=== PATIENT | male | born 1970 | race Caucasian/White ===

== ENCOUNTER 2016-08-16 17:43 | Emergency (ER) | payer OTHER ==
[~2016-08-16] VITALS: Ht 180.3 cm; Wt 81.8 kg
[~2016-08-16 17:43] MED LIST: PERC5TAB12 PO; TAMS0.4C67 PO; ZOFR4TAB3 SL
[2016-08-16 17:46] VITALS: BP 126/85; PULSE 95; RESP 18; TEMP 97.9; O2SAT 98
[2016-08-16 18:27] VITALS: BP 117/81; PULSE 89; RESP 18; TEMP 98.3; O2SAT 96
--- NOTE | 2016-08-16 18:33 | PD ---
HPI Chief Complaint: Fall Time Seen by Provider: 18:32 Travel History International Travel<30 days: No Contact w/Intl Traveler<30days: No Traveled to known affect area: No History of Present Illness HPI 45-year-old male coming in status post slip and fall on his home steps due to the rain. Patient states neck pain, headache, and questionable loss of consciousness. Patient also has pain in his central thoracic spine, right knee and right ankle. Patient denies shortness of breath or chest pain. Denies abdominal pain. Patient states upper extremities are normal. Patient denies hip or pelvic pain. Patient denies pain in the left leg. Patient has no open wounds or abrasions. Patient denies dental injury. PFSH Past Medical History Diabetes: No Diminished Hearing: No Kidney Stones: Yes Immunizations Current: Yes Social History Alcohol Use: No Tobacco Use: Yes (07/27 PPD) Substance Use: No Allergies-Medications (Allergen,Severity, Reaction): Coded Allergies: Vistaril (Verified Allergy, Intermediate, AGITATION, 08/16/16) Reported Meds & Prescriptions Reported Meds & Active Scripts Active Zofran ODT (Ondansetron HCl) 4 Mg Tab 4 Mg SL Q6H PRN FOR NAUSEA/VOMITING Percocet 5-325 mg (Oxycodone/Acetaminophen) Oxycodone 5/325 Acetaminophen Tab 1 Tab PO Q6H PRN Flomax (Tamsulosin HCl) 0.4 Mg Cap 0.4 Mg PO DAILY Review of Systems Except as stated in HPI: all other systems reviewed are Neg General / Constitutional: No: Fever Eyes: No: Visual changes HENT: No: Headaches Cardiovascular: No: Chest Pain or Discomfort Respiratory: No: Shortness of Breath Gastrointestinal: No: Abdominal Pain Genitourinary: No: Dysuria Musculoskeletal: No: Pain Skin: No Rash Neurologic: No: Weakness Psychiatric: No: Depression Endocrine: No: Polydipsia Hematologic/Lymphatic: No: Easy Bruising Physical Exam Narrative GENERAL: Patient appears in moderate distress. Patient is in a [place] cervical collar. SKIN: Warm and dry. Normal color. Normal turgor. No signs of trauma appreciated. HEAD: Atraumatic. Normocephalic. No specific point tenderness is noted. EYES: Pupils equal and round. No scleral icterus. No injection or drainage. ENT: No nasal bleeding or discharge. Mucous membranes pink and moist. No dental injury. Pharynx is normal. Airway is patent. NECK: Trachea midline. No JVD. Patient complains of neck pain and cervical collar is maintained for CT scan. CARDIOVASCULAR: Regular rate and rhythm. No murmurs gallops or rubs. RESPIRATORY: No accessory muscle use. Clear to auscultation. Breath sounds equal bilaterally. No thoracic wall tenderness. Patient has tenderness along the thoracic spine at the T10 level. No obvious deformities are noted. GASTROINTESTINAL: Abdomen soft, non-tender, nondistended. Hepatic and splenic margins not palpable. MUSCULOSKELETAL: Extremities without clubbing, cyanosis, or edema. No obvious deformities. Patient has swelling of the right ankle mainly over the dorsal foot and lateral malleolus and distal foreleg. Patient complains of right knee pain however the knee appears normal, without effusion or obvious bony deformity. NEUROLOGICAL: Awake and alert. No obvious cranial nerve deficits. Motor grossly within normal limits. Five out of 5 muscle strength in the arms and legs. Range of motion in the right lower leg is limited secondary to pain. Normal speech. PSYCHIATRIC: Appropriate mood and affect; insight and judgment normal. Data Data Last Documented VS Vital Signs Date Time Temp Pulse Resp B/P Pulse Ox O2 Delivery O2 Flow Rate FiO2 08/16/16 19:53 74 15 111/68 96 Room Air 08/16/16 18:[address] Brain W/O Iv Contrast(Rout) (08/16/16 18:38) Ct Cerv Spine W/O Contrast (08/16/16 18:38) Ct Thor Spine W/O Contrast (08/16/16 18:38) Complete Blood Count With Diff (08/16/16 18:38) Comprehensive Metabolic Panel (08/16/16 18:38) Iv Access Insert/Monitor (08/16/16 18:38) Ecg Monitoring (08/16/16 18:38) Oximetry (08/16/16 18:38) NPO (08/16/16 18:38) Hydromorphone Pf Inj (Dilaudid Pf Inj) (08/16/16 18:45) Ondansetron Inj (Zofran Inj) (08/16/16 18:45) Sodium Chloride 0.9% Flush (Ns Flush) (08/16/16 18:45) Ankle, Complete (Stl3prg) (08/16/16 18:38) Knee, Complete (4vws) (08/16/16 18:38) Ice/Cold Pack (08/16/16 18:38) Ketorolac Inj (Toradol Inj) (08/16/16 19:30) Labs Laboratory Tests Test 08/16/16 18:55 White Blood Count 7.7 TH/MM3 Red Blood Count 4.34 MIL/MM3 Hemoglobin 13.0 GM/DL Hematocrit 39.5 % Mean Corpuscular Volume 91.1 FL Mean Corpuscular Hemoglobin 29.9 PG Mean Corpuscular Hemoglobin 32.8 % Concent Red Cell Distribution Width 13.8 % Platelet Count 230 TH/MM3 Mean Platelet Volume 8.7 FL Neutrophils (%) (Auto) 65.8 % Lymphocytes (%) (Auto) 22.9 % Monocytes (%) (Auto) 6.9 % Eosinophils (%) (Auto) 3.7 % Basophils (%) (Auto) 0.7 % Neutrophils # (Auto) 5.1 TH/MM3 Lymphocytes # (Auto) 1.8 TH/MM3 Monocytes # (Auto) 0.5 TH/MM3 Eosinophils # (Auto) 0.3 TH/MM3 Basophils # (Auto) 0.1 TH/MM3 CBC Comment DIFF FINAL Differential Comment Sodium Level 142 MEQ/L Potassium Level 4.6 MEQ/L Chloride Level 110 MEQ/L Carbon Dioxide Level 25.6 MEQ/L Anion Gap 6 MEQ/L Blood Urea Nitrogen 11 MG/DL Creatinine 0.94 MG/DL Estimat Glomerular Filtration 87 ML/MIN Rate Random Glucose 85 MG/DL Calcium Level 8.5 MG/DL Total Bilirubin 0.3 MG/DL Aspartate Amino Transf 52 U/L (AST/SGOT) Alanine Aminotransferase 43 U/L (ALT/SGPT) Alkaline Phosphatase 96 U/L Total Protein 6.7 GM/DL Albumin 3.0 GM/DL [facility] Medical Decision Making Medical Screen Exam Complete: Yes Emergency Medical Condition: Yes Differential Diagnosis Fall. Multiple contusions. Neck pain. Possible loss of consciousness. Intracranial bleed. Right ankle fracture. Right knee fracture. Thoracic contusion. Possible vertebral fracture. Right knee sprain. Narrative Course Patient is felt to be medically stable at time of exam. Labs ordered including CBC, CMP. IV access is obtained patient is given 1 mg hydromorphone IV, [address] the head and neck is ordered. CT of the thoracic spine is ordered. X-rays of the right ankle and and right knee were ordered. CT of the head and neck are within normal limits per radiologist. CT thoracic spine shows chronic changes without acute findings of fracture. X-rays of the right knee and ankle show no acute fracture, soft tissue swelling along the medial ankle. Patient is given 30 mg Toradol IV. Patient is placed in a ankle stirrup splint and crutches for the right ankle sprain. Patient is discussed with Dr. Arizmendi who sees the patient as well. Labs are within normal limits. Troponin is 0.02. Patient is felt stable to be discharged home. Patient is given prescription for lisinopril 20 mg daily. #30. Patient is given ibuprofen at 12.5 mg daily. #30. Patient is to follow with her primary care physician as discussed. Patient may return to emergency Department with worsening symptoms as needed. Diagnosis Primary Impression: Fall (on) (from) other stairs and steps, initial encounter Additional Impressions: Cervical strain Qualified Code: S16.1XXA - Cervical strain, initial encounter Contusion Qualified Code: S00.03XA - Contusion of scalp, initial encounter Strain of right knee Qualified Code: S86.911A - Strain of right knee, initial encounter Moderate right ankle sprain Qualified Code: S93.401A - Moderate right ankle sprain, initial encounter Referrals: Primary Care Physician Patient Instructions: General Instructions, Narcotic given in the ED Additional Instructions: Labs are within normal limits. Troponin is 0.02. Patient is felt stable to be discharged home. Patient is given prescription for lisinopril 20 mg daily. #30. Patient is given ibuprofen at 12.5 mg daily. #30. Patient is to follow with her primary care physician as discussed. Patient may return to emergency Department with worsening symptoms as needed. Med/Other Pt SpecificInfo: Prescription(s) given Disposition: DISCHARGE HOME Condition: Stable Henri Thomas Aug 16, 2016 18:32
[2016-08-16] MEDS ORDERED: SODIUM CHLORIDE 0.9% FLUSH 5 ML FLUSH IVF PRN (18:45)
[2016-08-16] MEDS ORDERED: ONDANSETRON HCL 4 MG/2 ML VIAL IVP ONE (18:45)
[2016-08-16] MEDS ORDERED: HYDROmorphone HCL PF 2 MG/ML VIAL IVS ONE (18:45)
[2016-08-16 19:01] VITALS: O2SAT 98
[2016-08-16 19:13] LABS: AUTOMATED NEUTROPHIL # 5.1 TH/MM3 (1.8-7.7); BASOPHIL # 0.1 TH/MM3 (0-0.2); BASOPHIL % 0.7 % (0.0-2.0); EOSINOPHIL # 0.3 TH/MM3 (0-0.4); EOSINOPHIL % 3.7 % (0.0-4.0); HEMATOCRIT 39.5 % (39.0-51.0); HEMO FLAGS DIFF FINAL; LYMPH % 22.9 % (9.0-44.0); LYMPHOCYTE # 1.8 TH/MM3 (1.0-4.8); MEAN CELL VOLUME 91.1 FL (80.0-100.0); MEAN CORPUSCULAR HEMOGLOBIN 29.9 PG (27.0-34.0); MEAN CORPUSCULAR HGB CONC 32.8 % (32.0-36.0); MONO % 6.9 % (0.0-8.0); NEUT % 65.8 % (16.0-70.0); PLATELET COUNT 230 TH/MM3 (150-450); RED BLOOD COUNT 4.34 MIL/MM3 (4.50-5.90); RED CELL DISTRIBUTION WIDTH 13.8 % (11.6-17.2); WHITE BLOOD COUNT 7.7 TH/MM3 (4.0-11.0)
--- NOTE | 2016-08-16 19:13 | RADRPT ---
EXAM DATE/TIME: 08/16/2016 18:58 [facility] COMPARISON: No previous studies available for comparison. INDICATIONS : Trauma; fall. RADIATION DOSE: 68.55 CTDIvol (mGy) MEDICAL HISTORY : None SURGICAL HISTORY : None. ENCOUNTER: Initial ACUITY: 1 day PAIN SCALE: 1/10 LOCATION: cranial TECHNIQUE: Multiple contiguous axial images were obtained of the head. Using automated exposure control and adj ustment of the mA and/or kV according to patient size, radiation dose was kept as low as reasonably a chievable to obtain optimal diagnostic quality images. FINDINGS: CEREBRUM: The ventricles are normal for age. No evidence of midline shift, mass lesion, hemorrhage or acute in farction. No extra-axial fluid collections are seen. POSTERIOR FOSSA: The cerebellum and brainstem are intact. The 4th ventricle is midline. The cerebellopontine angle i s unremarkable. EXTRACRANIAL: The visualized portion of the orbits is intact. There appears to be possible fracturing at the right nasal bone without significant displacement. SKULL: The calvaria is intact. No evidence of skull fracture. CONCLUSION: 1. No intracranial abnormality. 2. Possible right nondisplaced nasal bone fractures. Carlos Aceves MD on August 16, 2016 at 19:11 Board Certified Radiologist. This report was verified electronically.
[2016-08-16] MEDS ORDERED: KETOROLAC TROMETHAMINE 30 MG/ML (IVP) VIAL IV PUSH ONE (19:30)
--- NOTE | 2016-08-16 19:30 | RADRPT ---
EXAM DATE/TIME: 08/16/2016 18:58 [facility] COMPARISON: No previous studies available for comparison. INDICATIONS : Trauma; fall. RADIATION DOSE: 18.49 CTDIvol (mGy) MEDICAL HISTORY : None SURGICAL HISTORY : None. ENCOUNTER: Initial ACUITY: 1 day PAIN SCALE: 2/10 LOCATION: neck TECHNIQUE: Volumetric scanning of the cervical spine was performed. Multiplanar reconstructions in the sagittal, coronal and oblique axial planes were performed. Using automated exposure control and adjustment o f the mA and/or kV according to patient size, radiation dose was kept as low as reasonably achievable to obtain optimal diagnostic quality images. FINDINGS: VERTEBRAE: Normal vertebral body height. ALIGNMENT: No evidence of subluxation. C2-C3: The bony spinal canal is normal in size. No evidence of disc bulge or herniation. The neural forami na are bilaterally patent. C3-C4: The bony spinal canal is normal in size. No evidence of disc bulge or herniation. The neural forami na are bilaterally patent. C4-C5: The bony spinal canal is normal in size. No evidence of disc bulge or herniation. The neural forami na are bilaterally patent. C5-C6: The bony spinal canal is normal in size. No evidence of disc bulge or herniation. The neural forami na are bilaterally patent. C6-C7: The bony spinal canal is normal in size. No evidence of disc bulge or herniation. The neural forami na are bilaterally patent. C7-T1: The bony spinal canal is normal in size. No evidence of disc bulge or herniation. The neural forami na are bilaterally patent. CONCLUSION: No acute disease. Carlos Aceves MD on August 16, 2016 at 19:22 Board Certified Radiologist. This report was verified electronically.
--- NOTE | 2016-08-16 19:32 | RADRPT ---
EXAM DATE/TIME: 08/16/2016 19:27 [facility] COMPARISON: No previous studies available for comparison. INDICATIONS : Right ankle pain as a result of an alleged fall down two flights of stairs. MEDICAL HISTORY : None. SURGICAL HISTORY : None. ENCOUNTER: Initial ACUITY: 1 day PAIN SCORE: 10/10 LOCATION: Right ankle FINDINGS: Three view exam was performed of the right ankle. The bony structures are in normal alignment. No e vidence of fracture or dislocation. There is mild soft tissue swelling being more prominent laterally . There is a calcaneal spur at the plantar aponeurosis attachment site. The ankle mortise is intact. No radiopaque foreign bodies are seen. Bony mineralization is normal. CONCLUSION: 1. Mild soft tissue swelling especially laterally. 2. No fracture seen. 3. Calcaneal spur. Carlos Aceves MD on August 16, 2016 at 19:29 Board Certified Radiologist. This report was verified electronically.
--- NOTE | 2016-08-16 19:33 | RADRPT ---
EXAM DATE/TIME: 08/16/2016 19:24 [facility] COMPARISON: No previous studies available for comparison. INDICATIONS : Right knee pain as a result of trauma from an alleged two flight of stairs fall. MEDICAL HISTORY : None. SURGICAL HISTORY : None. ENCOUNTER: Initial ACUITY: 1 day PAIN SCORE: 10/10 LOCATION: Right knee FINDINGS: Four view examination of the right knee demonstrates postsurgical changes characteristic of a prior A CL repair. Additional lucency more lateral in the tibial metadiaphysis may resent an additional site of prior repair. Early osteoarthritic changes with some loss of the medial tibiofemoral joint space. Early chondrocalcinosis of the medial and lateral menisci. Small suprapatellar effusion. Osseous stru ctures are otherwise intact. CONCLUSION: 1. Postsurgical changes of ACL repair. 2. Small suprapatellar effusion with no acute fracture. 3. Early osteoarthritic changes with some loss of the medial tibiofemoral joint space. Early chondroc alcinosis of the menisci Rajinder Fregoso MD on August 16, 2016 at 19:27 Board Certified Radiologist. This report was verified electronically.
[2016-08-16 19:36] LABS: ANION GAP 6 MEQ/L (5-15); BICARBONATE 25.6 MEQ/L (21.0-32.0); BLOOD UREA NITROGEN 11 MG/DL (7-18); CHLORIDE 110 MEQ/L (98-107); GLOMERULAR FILTRATION RATE 87 ML/MIN (>89); POTASSIUM 4.6 MEQ/L (3.5-5.1); SODIUM (NA) 142 MEQ/L (136-145)
[2016-08-16 19:39] LABS: ALKALINE PHOSPHATASE 96 U/L (45-117); ALT (GPT) 43 U/L (12-78); AST (GOT) 52 U/L (15-37); TOTAL BILIRUBIN ADULT 0.3 MG/DL (0.2-1.0)
--- NOTE | 2016-08-16 19:50 | RADRPT ---
EXAM DATE/TIME: 08/16/2016 19:02 [facility] COMPARISON: No previous studies available for comparison. INDICATIONS : Trauma; fall. Complains of upper back pain. RADIATION DOSE: 35.86 CTDIvol (mGy) MEDICAL HISTORY : None SURGICAL HISTORY : None. ENCOUNTER: Initial ACUITY: 1 day PAIN SCALE: 2/10 LOCATION: thoracic TECHNIQUE: Volumetric scanning of the thoracic spine was performed. Multiplanar reconstructions in the sagittal , coronal and oblique axial planes were performed. Using automated exposure control and adjustment o f the mA and/or kV according to patient size, radiation dose was kept as low as reasonably achievable to obtain optimal diagnostic quality images. FINDINGS: The vertebral bodies of the thoracic spine are in normal alignment. There is mild loss of height at t he T9 and T12 vertebral bodies. There are concave endplates seen superiorly and inferiorly at T9 and superiorly at T12. An acute fracture deformity is not clearly identified. There is a minimal concavit y without loss of height at the superior aspect of T8. There is spurring seen anteriorly in the mid a nd lower thoracic spine. T1-T2: Normal. T2-T3: The thecal sac has a normal diameter. No evidence of disc bulge or protrusion. T3-T4: The thecal sac has a normal diameter. No evidence of disc bulge or protrusion. T4-T5: The thecal sac has a normal diameter. No evidence of disc bulge or protrusion. T5-T6: The thecal sac has a normal diameter. No evidence of disc bulge or protrusion. T6-T7: The thecal sac has a normal diameter. No evidence of disc bulge or protrusion. T7-T8: The thecal sac has a normal diameter. No evidence of disc bulge or protrusion. T8-T9: The thecal sac has a normal diameter. No evidence of disc bulge or protrusion. T9-T10: The thecal sac has a normal diameter. No evidence of disc bulge or protrusion. T10-T11: The thecal sac has a normal diameter. No evidence of disc bulge or protrusion. T11-T12: The thecal sac has a normal diameter. No evidence of disc bulge or protrusion. T12-L1: The thecal sac has a normal diameter. No evidence of disc bulge or protrusion. OTHER: There is a small 2 mm nonobstructing left renal stone. CONCLUSION: 1. Mild concave compression deformities at T9, T8 and T12. These are likely chronic. Acute fracture a nd cortical disruption is not seen. Carlos Aceves MD on August 16, 2016 at 19:43 Board Certified Radiologist. This report was verified electronically.
[2016-08-16 19:53] VITALS: BP 111/68; PULSE 74; RESP 15; O2SAT 96
--- NOTE | 2016-08-16 20:14 | PD ---
Physical Exam Narrative General: The patient is a well-developed well-nourished male in no acute distress. Head and Neck exam: Head is normocephalic atraumatic. Eyes: Pupils are equal round and reactive to light. Nose: Midline septum with pink mucous membranes Mouth: Dentition unremarkable. Moist mucus membranes. Posterior oropharynx is not erythematous. No tonsillar hypertrophy. Uvula midline. Airway patent. Neck: No palpable lymphadenopathy. No nuchal rigidity. No thyromegaly. The patient has cervical collar in place. Cardiovascular: Regular rate and rhythm without murmurs, gallops, or rubs. Lungs: Clear to auscultation bilaterally. No wheezes, rhonchi, or rales. Abdomen: Soft, without tenderness to palpation in all 4 quadrants of the abdomen. No guarding, rebound, or rigidity. Normal bowel sounds are audible. Extremities: No clubbing, cyanosis, or edema. 2+ pulses in all 4 extremities. The area of interest on the right ankle and right knee. The patient reports tenderness on palpation along the lateral aspect of the right ankle. There is some swelling noted. There is no crepitus or deformity. There is no ligament laxity. On examination of the right knee, the patient has no visible trauma. The patient reports that he has had 7 or 8 surgeries on that right knee previously. The patient has no ligament laxity. The patient has reported pain with flexion although he has full range of motion on exam. No ballotable patella. No erythema or ecchymosis. Back: No spinous process tenderness to palpation. No costovertebral angle tenderness to palpation. Neurologic Exam: Cranial nerves 2-12 were intact on exam. Strength is 5/5 in all 4 extremities. No sensory deficits noted. Skin Exam: No rash noted. Intact skin that is warm and dry. Data Data Last Documented VS Vital Signs Date Time Temp Pulse Resp B/P Pulse Ox O2 Delivery O2 Flow Rate FiO2 08/16/16 19:53 74 15 111/68 96 Room Air 08/16/16 18:[address] Brain W/O Iv Contrast(Rout) (08/16/16 18:38) Ct Cerv Spine W/O Contrast (08/16/16 18:38) Ct Thor Spine W/O Contrast (08/16/16 18:38) Complete Blood Count With Diff (08/16/16 18:38) Comprehensive Metabolic Panel (08/16/16 18:38) Iv Access Insert/Monitor (08/16/16 18:38) Ecg Monitoring (08/16/16 18:38) Oximetry (08/16/16 18:38) NPO (08/16/16 18:38) Hydromorphone Pf Inj (Dilaudid Pf Inj) (08/16/16 18:45) Ondansetron Inj (Zofran Inj) (08/16/16 18:45) Sodium Chloride 0.9% Flush (Ns Flush) (08/16/16 18:45) Ankle, Complete ([id number]) (08/16/16 18:38) Knee, Complete (4vws) (08/16/16 18:38) Ice/Cold Pack (08/16/16 18:38) Ketorolac Inj (Toradol Inj) (08/16/16 19:30) Labs Laboratory Tests Test 08/16/16 18:55 White Blood Count 7.7 TH/MM3 Red Blood Count 4.34 MIL/MM3 Hemoglobin 13.0 GM/DL Hematocrit 39.5 % Mean Corpuscular Volume 91.1 FL Mean Corpuscular Hemoglobin 29.9 PG Mean Corpuscular Hemoglobin 32.8 % Concent Red Cell Distribution Width 13.8 % Platelet Count 230 TH/MM3 Mean Platelet Volume 8.7 FL Neutrophils (%) (Auto) 65.8 % Lymphocytes (%) (Auto) 22.9 % Monocytes (%) (Auto) 6.9 % Eosinophils (%) (Auto) 3.7 % Basophils (%) (Auto) 0.7 % Neutrophils # (Auto) 5.1 TH/MM3 Lymphocytes # (Auto) 1.8 TH/MM3 Monocytes # (Auto) 0.5 TH/MM3 Eosinophils # (Auto) 0.3 TH/MM3 Basophils # (Auto) 0.1 TH/MM3 CBC Comment DIFF FINAL Differential Comment Sodium Level 142 MEQ/L Potassium Level 4.6 MEQ/L Chloride Level 110 MEQ/L Carbon Dioxide Level 25.6 MEQ/L Anion Gap 6 MEQ/L Blood Urea Nitrogen 11 MG/DL Creatinine 0.94 MG/DL Estimat Glomerular Filtration 87 ML/MIN Rate Random Glucose 85 MG/DL Calcium Level 8.5 MG/DL Total Bilirubin 0.3 MG/DL Aspartate Amino Transf 52 U/L (AST/SGOT) Alanine Aminotransferase 43 U/L (ALT/SGPT) Alkaline Phosphatase 96 U/L Total Protein 6.7 GM/DL Albumin 3.0 GM/DL [facility] Medical Record Reviewed: Yes Supervised Visit with SUZANNE: Yes Interpretation(s) Last Impressions Knee X-Ray 08/16/[id number] Signed Impressions: Service Date/Time: Tuesday, August 16, 2016 19:24 - CONCLUSION: 1. Postsurgical changes of ACL repair. 2. Small suprapatellar effusion with no acute fracture. 3. Early osteoarthritic changes with some loss of the medial tibiofemoral joint space. Early chondrocalcinosis of the menisci Rajinder Fregoso MD Head CT [id number]/16/[id number] Signed Impressions: Service Date/Time: Tuesday, August 16, 2016 18:58 - CONCLUSION: 1. No intracranial abnormality. 2. Possible right nondisplaced nasal bone fractures. Carlos Aceves MD Cervical Spine CT 08/16/[id number] Signed Impressions: Service Date/Time: Tuesday, August 16, 2016 18:58 - CONCLUSION: No acute disease. Carlos Aceves MD Ankle X-Ray [id number]/16/[id number] Signed Impressions: Service Date/Time: Tuesday, August 16, 2016 19:27 - CONCLUSION: 1. Mild soft tissue swelling especially laterally. 2. No fracture seen. 3. Calcaneal spur. Carlos Aceves MD Narrative Course I, Dr. Arizmendi, have reviewed the advance practice practitioner's documentation and am in agreement, met with the patient face to face, made the diagnosis, and the medical decision making was done by me. The patient was initially evaluated by Henri. Please see his complete history and physical. *My assessment and Findings: The patient is a 45-year-old male who presents to [facility] emergency Department reportedly with a history of tripping down the stairs at his apartment prior to arrival. The patient reports that he struck the back of his head. He is unsure whether he lost consciousness. The patient reports having a headache, neck pain, right knee pain, right ankle pain. The patient reports to me that he has a chronic history of pain related to prior injuries in [place]. He reports that previously he was on oxycodone. He reports that this was however discontinued years ago. He reports that he now takes gabapentin for chronic pain. He reports that previously he did have a morphine pain pump, however this was removed related to an infection at the site. The patient's examination is remarkable for some swelling along the lateral aspect of the right ankle, reported pain with flexion of the right knee. CT scan of the head, neck was ordered, CT scan of the T-spine, right ankle x-ray, right knee x-ray was ordered to further evaluate his symptoms. The patient on imaging had no evidence of an acute abnormality. The patient will be discharged home with pain management. The patient was instructed to follow-up with his primary care physician for reexamination. The patient is resting comfortably and feels better, is alert and in no distress. The patients results and examination findings were discussed with the patient. The repeat examination is unremarkable and benign. The history, exam, diagnostic testing, and current condition do not suggest any significant pathology to warrant further testing, continued ED treatment, admission, or surgical evaluation at this point. The vital signs have been stable. The patient does not have uncontrollable pain, intractable vomiting, or other significant symptoms. The patient's condition is stable and appropriate for discharge. The patient will pursue further outpatient evaluation with a primary care physician or other designated or consulting physician as indicated in the discharge instructions. The patient expressed understanding and was agreeable with this plan. Prabha Arizmendi MD Aug 16, 2016 20:14
[2016-08-16] MEDS ORDERED: IBUP800T23 PO (20:18)
[2016-08-16] MEDS ORDERED: ORPH100T99 PO (20:18)
[2016-08-16 20:29] VITALS: BP 111/68
== END 2016-08-16 20:46 | disposition home or self-care (01) ==
LOC: NEPE 17:43
DX: S00.03XA Contusion of scalp, initial encounter (principal); S16.1XXA Strain of muscle, fascia and tendon at neck level, initial encounter; S86.911A Strain of unspecified muscle(s) and tendon(s) at lower leg level, right leg, initial encounter; S93.401A Sprain of unspecified ligament of right ankle, initial encounter; F17.210 Nicotine dependence, cigarettes, uncomplicated; W10.8XXA Fall (on) (from) other stairs and steps, initial encounter; Y92.009 Unspecified place in unspecified non-institutional (private) residence as the place of occurrence of the external cause; Y99.8 Other external cause status; M54.9 Dorsalgia, unspecified
CPT/HCPCS: 70450; 72125; 72128; 73564; 73610; 80053; 85025; 96374; 96375; 99284; E0113; J1170; J1885; J2405; L1906

== ENCOUNTER 2016-09-18 18:29 | Emergency (ER) | payer OTHER ==
[~2016-09-18] VITALS: Ht 177.8 cm; Wt 80.6 kg
[~2016-09-18 18:29] MED LIST changes: +IBUP800T23 PO; +ORPH100T99 PO
[2016-09-18 18:37] VITALS: BP 116/85; PULSE 71; RESP 16; TEMP 98.6; O2SAT 97
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
[2016-09-18] MEDS ORDERED: TRAM50TA PO (20:31)
== END 2016-09-18 20:39 | disposition home or self-care (01) ==
LOC: PHED 18:29 → PHEFT 20:39
DX: S40.021A Contusion of right upper arm, initial encounter (principal); X58.XXXA Exposure to other specified factors, initial encounter
CPT/HCPCS: 99282

== ENCOUNTER 2016-12-07 08:30 | Emergency (ER) | payer OTHER ==
[~2016-12-07] VITALS: Ht 180.3 cm; Wt 79.3 kg
[~2016-12-07 08:30] MED LIST changes: -IBUP800T23 PO; -ORPH100T99 PO; -PERC5TAB12 PO; -TAMS0.4C67 PO; +TRAM50TA PO; -ZOFR4TAB3 SL
[2016-12-07 08:36] VITALS: BP 160/99; PULSE 71; RESP 16; TEMP 97.9; O2SAT 100
[2016-12-07] MEDS ORDERED: ALEN1TAB48 PO (08:59)
[2016-12-07] MEDS ORDERED: ARIC10TA PO (08:59)
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
[2016-12-07 10:30] VITALS: BP 128/92
== END 2016-12-07 10:31 | disposition home or self-care (01) ==
LOC: PHEFT 08:30
DX: S16.1XXA Strain of muscle, fascia and tendon at neck level, initial encounter (principal); F43.10 Post-traumatic stress disorder, unspecified; F17.200 Nicotine dependence, unspecified, uncomplicated; Z79.899 Other long term (current) drug therapy; Z88.8 Allergy status to other drugs, medicaments and biological substances; Z86.73 Personal history of transient ischemic attack (TIA), and cerebral infarction without residual deficits; Z87.820 Personal history of traumatic brain injury; V49.9XXA Car occupant (driver) (passenger) injured in unspecified traffic accident, initial encounter
CPT/HCPCS: 72040; 99283

== ENCOUNTER 2016-12-19 14:58 | Observation (INO) | payer OTHER ==
[~2016-12-19] VITALS: Ht 180.3 cm; Wt 85.0 kg
[~2016-12-19 14:58] MED LIST changes: +ALEN1TAB48 PO; +ARIC10TA PO; -TRAM50TA PO
[2016-12-19 15:00] VITALS: BP 126/89; PULSE 73; RESP 16; TEMP 97.8; O2SAT 99
[2016-12-19 15:09] VITALS: BP 145/91; PULSE 80; RESP 18; O2SAT 98
[2016-12-19] MEDS ORDERED: SODIUM CHLORID 0.9% 500 ML INJ 500 ML IV ONE (15:15)
[2016-12-19] MEDS ORDERED: ASPIRIN 81 MG CHEW TAB PO ONE (15:15)
[2016-12-19] MEDS ORDERED: SODIUM CHLORIDE 0.9% FLUSH 10 ML FLUSH IVF PRN (15:15)
--- NOTE | 2016-12-19 15:23 | PD ---
HPI Chief Complaint: Chest Pain Time Seen by Provider: 15:18 Travel History International Travel<30 days: No Contact w/Intl Traveler<30days: No Traveled to known affect area: No History of Present Illness HPI 46-year-old male with history of TBI and PTSD presents to the ED for evaluation of 2 hour history of 5/10 substernal chest pain. Onset at rest. Onset gradual , lasting approximately 5 minutes before resolving spontaneously. Patient endorses associated diaphoresis, shortness of breath and nausea. He denies radiation of the pain, fevers, chills, cough, abdominal pain. Endorses 20+ pack year smoking history, current smoker. He denies illicit drug use. He's never had this kind of pain before. He is unsure of family history of cardiac events. PFSH Past Medical History Cerebrovascular Accident: Yes Diabetes: No Diminished Hearing: No Kidney Stones: Yes Neurologic: Yes (traumatic brain injury) Psychiatric: Yes (PTSD) Immunizations Current: Yes Social History Alcohol Use: No Tobacco Use: Yes (1/2 PPD) Substance Use: No Allergies-Medications (Allergen,Severity, Reaction): Coded Allergies: Vistaril (Verified Allergy, Intermediate, AGITATION, 12/07/16) Reported Meds & Prescriptions Reported Meds & Active Scripts Active Reported Xanax (Alprazolam) 1 Mg Tab 1 Mg PO Q6H PRN Namenda (Memantine) 10 Mg Tab 10 Mg PO BID Aricept (Donepezil) 23 Mg Tab 10 Mg PO HS Do not split, crushed or chewed. Review of Systems Except as stated in HPI: all other systems reviewed are Neg Physical Exam Narrative GENERAL: Well-nourished, well-developed anxious white male in no acute distress. SKIN: Focused skin assessment warm/dry.SKIN: There is an indurated area in the ventral aspect right wrist which measures about 3 cm in diameter. It is fluctuant but there is no pointing or drainage. There is a zone of inflammation around it but no lymphangitis. HEAD: Normocephalic. EYES: No scleral icterus. No injection or drainage. NECK: Supple, trachea midline. No JVD or lymphadenopathy. CARDIOVASCULAR: Regular rate and rhythm without murmurs, gallops, or rubs. 2+ DP and radial pulses bilaterally. RESPIRATORY: Breath sounds equal and clear and bilaterally. No accessory muscle use. GASTROINTESTINAL: Abdomen soft, non-tender, nondistended. Active bowel sounds. MUSCULOSKELETAL: No cyanosis, or edema. The patient is a young moves the extremities spontaneously. BACK: Nontender without obvious deformity. No CVA tenderness. Data Data Last Documented VS Vital Signs Date Time Temp Pulse Resp B/P Pulse Ox O2 Delivery O2 Flow Rate FiO2 12/19/16 15:09 80 18 145/91 98 Room Air 12/19/16 15:00 97.8 Orders Electrocardiogram (12/19/16 15:15) Ckmb (Isoenzyme) Profile (12/19/16 15:15) Complete Blood Count With Diff (12/19/16 15:15) Comprehensive Metabolic Panel (12/19/16 15:15) Magnesium (Mg) (12/19/16 15:15) Prothrombin Time / Inr (Pt) (12/19/16 15:15) Act Partial Throm Time (Ptt) (12/19/16 15:15) Troponin I (12/19/16 15:15) Chest, Single Ap (12/19/16 15:15) Ecg Monitoring (12/19/16 15:15) Bilateral Bp Monitoring (12/19/16 15:15) Iv Access Insert/Monitor (12/19/16 15:15) Oximetry (12/19/16 15:15) Aspirin Chew (Aspirin Chew) (12/19/16 15:15) Sodium Chloride 0.9% Flush (Ns Flush) (12/19/16 15:15) Sodium Chlorid 0.9% 500 Ml Inj (Ns 500 M (12/19/16 15:15) Wound Culture And Gram Stain (12/19/16 16:28) Lidocai-Epi 1%-1:100,000 Inj (Xylocaine- (12/19/16 16:30) Ns + Kcl 20 Meq Inj (Ns + Kcl 20 Meq Inj (12/19/16 16:45) Potassium Chloride (Kcl) (12/19/16 16:45) Potassium Chlor 20 Meq Premix (Kcl 20 Me (12/19/16 16:45) Admit Order (Ed Use Only) (12/19/16 17:50) Clindamycin (Cleocin) (12/19/16 18:00) Labs Laboratory Tests Test 12/19/16 15:50 White Blood Count 9.6 TH/MM3 Red Blood Count 4.71 MIL/MM3 Hemoglobin 14.5 GM/DL Hematocrit 41.5 % Mean Corpuscular Volume 88.0 FL Mean Corpuscular Hemoglobin 30.7 PG Mean Corpuscular Hemoglobin 34.9 % Concent Red Cell Distribution Width 14.1 % Platelet Count 282 TH/MM3 Mean Platelet Volume 7.3 FL Neutrophils (%) (Auto) 67.2 % Lymphocytes (%) (Auto) 27.1 % Monocytes (%) (Auto) 4.4 % Eosinophils (%) (Auto) 0.6 % Basophils (%) (Auto) 0.7 % Neutrophils # (Auto) 6.5 TH/MM3 Lymphocytes # (Auto) 2.6 TH/MM3 Monocytes # (Auto) 0.4 TH/MM3 Eosinophils # (Auto) 0.1 TH/MM3 Basophils # (Auto) 0.1 TH/MM3 CBC Comment DIFF FINAL Differential Comment Prothrombin Time 11.9 SEC Prothromb Time International 1.1 RATIO Ratio Activated Partial 27.5 SEC Thromboplast Time Sodium Level 141 MEQ/L Potassium Level 2.7 MEQ/L Chloride Level 103 MEQ/L Carbon Dioxide Level 28.3 MEQ/L Anion Gap 10 MEQ/L Blood Urea Nitrogen 6 MG/DL Creatinine 0.81 MG/DL Estimat Glomerular Filtration 103 ML/MIN Rate Random Glucose 87 MG/DL Calcium Level 8.8 MG/DL Magnesium Level 1.9 MG/DL Total Bilirubin 0.5 MG/DL Aspartate Amino Transf 11 U/L (AST/SGOT) Alanine Aminotransferase 22 U/L (ALT/SGPT) Alkaline Phosphatase 104 U/L Total Creatine Kinase 61 U/L Troponin I LESS THAN 0.02 NG/ML Total Protein 7.0 GM/DL Albumin 3.6 GM/DL [facility] Medical Decision Making Medical Screen Exam Complete: Yes Emergency Medical Condition: Yes Interpretation(s) EKG rate 73, sinus rhythm. OH interval 148, QRS 111, QTC 429. Normal axis. No ST-T changes. Reviewed by Dr. Esquivel Differential Diagnosis Chest pain versus anxiety versus ACS versus furuncle versus carbuncle versus insect bite versus abscess versus other Narrative Course 46-year-old male with history of TBI and PTSD presents to the ED for evaluation of 2 hour history of 5/10 substernal chest pain. Onset at rest. Onset gradual , lasting approximately 5 minutes before resolving spontaneously. Patient endorses associated diaphoresis, shortness of breath and nausea. He denies radiation of the pain, fevers, chills, cough, abdominal pain. Endorses 20+ pack year smoking history, current smoker. He denies illicit drug use. He's never had this kind of pain before. He is unsure of family history of cardiac events. Vitals are reviewed. Physical exam reveals a small abscess on the anterior aspect of the right wrist is otherwise unremarkable. CBC: WBC 9.6. Hemoglobin 14.5. Coags INR 1.1. CMP: Potassium 2.7 otherwise unremarkable. Cardiac enzymes: Negative 1. Chest x-ray: No acute disease per radiology read. Abscess I&D was performed. Wound cultures were obtained. Please see my procedure note for details. Patient was administered 40 mEq potassium by mouth and 20 mEq IV. 300 mg clindamycin 4 times a day was initiated. Patient was administered 1 mg Ativan by mouth. He'll be admitted to the chest pain center for further evaluation of his chest pain. Please see their notes for disposition. Procedures Procedure Narrative INCISION AND DRAINAGE OF ABSCESS: The area was prepped and was sterilely draped. A subcutaneous wheal of 1 % Xylocaine with epinephrine with a total number 1 mL was used to anesthetize the area properly. A number 11 scalpel was used to make a 1.25-cm incision across the area of the abscess. The abscess was drained, complex loculations were broken down, and irrigated with normal saline. Cultures were obtained. Sterile dressing applied. Patient advised to keep the wound clean, dry and covered. Dafne Zamudio December 19, 2016 15:23
--- NOTE | 2016-12-19 15:34 | RADRPT ---
EXAM DATE/TIME: 12/19/2016 15:26 [facility] COMPARISON: No previous studies available for comparison. INDICATIONS : Chest pain. MEDICAL HISTORY : None. SURGICAL HISTORY : None. ENCOUNTER: Initial ACUITY: 1 day PAIN SCORE: 10/10 LOCATION: Bilateral chest FINDINGS: A single view of the chest demonstrates the lungs to be symmetrically aerated without evidence of mas s, infiltrate or effusion. The cardiomediastinal contours are unremarkable. Osseous structures are intact. CONCLUSION: No acute disease. Thomas Connors MD FACR on December 19, 2016 at 15:32 Board Certified Radiologist. This report was verified electronically.
[2016-12-19 15:59] LABS: AUTOMATED NEUTROPHIL # 6.5 TH/MM3 (1.8-7.7); BASOPHIL # 0.1 TH/MM3 (0-0.2); BASOPHIL % 0.7 % (0.0-2.0); EOSINOPHIL # 0.1 TH/MM3 (0-0.4); EOSINOPHIL % 0.6 % (0.0-4.0); HEMATOCRIT 41.5 % (39.0-51.0); HEMO FLAGS DIFF FINAL; LYMPH % 27.1 % (9.0-44.0); LYMPHOCYTE # 2.6 TH/MM3 (1.0-4.8); MEAN CORPUSCULAR HEMOGLOBIN 30.7 PG (27.0-34.0); MEAN CORPUSCULAR HGB CONC 34.9 % (32.0-36.0); MONO % 4.4 % (0.0-8.0); NEUT % 67.2 % (16.0-70.0); PLATELET COUNT 282 TH/MM3 (150-450); RED BLOOD COUNT 4.71 MIL/MM3 (4.50-5.90); RED CELL DISTRIBUTION WIDTH 14.1 % (11.6-17.2); WHITE BLOOD COUNT 9.6 TH/MM3 (4.0-11.0)
[2016-12-19 16:08] LABS: APTT (PATIENT) 27.5 SEC (24.3-30.1); INTERNATIONAL NORMALIZED RATIO 1.1 RATIO; PROTHROMBIN TIME - PATIENT 11.9 SEC (9.8-11.6)
[2016-12-19] MEDS ORDERED: LIDOCAINE 1%/EPINEPHrine 1:100,000 SOLN 20 ML VIAL INFIL ONE (16:30)
[2016-12-19 16:33] LABS: ALKALINE PHOSPHATASE 104 U/L (45-117); ALT (GPT) 22 U/L (12-78); ANION GAP 10 MEQ/L (5-15); AST (GOT) 11 U/L (15-37); BICARBONATE 28.3 MEQ/L (21.0-32.0); BLOOD UREA NITROGEN 6 MG/DL (7-18); CHLORIDE 103 MEQ/L (98-107); CREATINE KINASE 61 U/L (39-308); GLOMERULAR FILTRATION RATE 103 ML/MIN (>89); MAGNESIUM 1.9 MG/DL (1.5-2.5); SODIUM (NA) 141 MEQ/L (136-145); TOTAL BILIRUBIN ADULT 0.5 MG/DL (0.2-1.0)
[2016-12-19 16:35] LABS: POTASSIUM 2.7 MEQ/L (3.5-5.1)
[2016-12-19] MEDS ORDERED: POTASSIUM CHLORIDE 20 MEQ CONTROLLED RELEASE TAB PO ONE (16:45)
[2016-12-19] MEDS ORDERED: POTASSIUM CHLOR 20 MEQ PREMIX 100 ML IV ONE (16:45)
[2016-12-19] MEDS: NS + KCL 20 MEQ INJ 1,000 ML IV SCH ×2 (16:51→23:56)
[2016-12-19] MEDS ORDERED: ARIC23TA PO (17:51)
[2016-12-19] MEDS ORDERED: XANA1TAB2 PO (17:52)
[2016-12-19] MEDS ORDERED: NAME10TA PO (17:52)
[2016-12-19] MEDS: CLINDAMYCIN 150 MG CAP PO SCH ×2 (18:00→23:56)
[2016-12-19] MEDS ORDERED: SODIUM CHLORIDE 0.9% FLUSH 10 ML FLUSH IV FLUSH PRN (18:00)
[2016-12-19 18:03] VITALS: BP 153/87; PULSE 78; RESP 18; O2SAT 99
[2016-12-19] MEDS: ALPRAZolam 1 MG TAB PO PRN (18:09)
[2016-12-19 19:15] LABS: CREATINE KINASE 54 U/L (39-308)
[2016-12-19 20:20] VITALS: BP 122/77; PULSE 68; RESP 18; TEMP 98.4; O2SAT 97
[2016-12-19] MEDS: ACETAMINOPHEN/HYDROcodone 325 MG/7.5 MG TAB PO PRN (20:35)
[2016-12-19] MEDS ORDERED: ACETAMINOPHEN 325 MG TAB PO PRN (20:45)
[2016-12-19] MEDS: SODIUM CHLORIDE 0.9% FLUSH 10 ML FLUSH IV FLUSH SCH (20:48)
[2016-12-19 21:00] VITALS: PULSE 78
[2016-12-19] MEDS ORDERED: NITROGLYCERIN 0.4 MG SL 25 TABS/BTL SL PRN (21:00)
[2016-12-19 23:13] LABS: CREATINE KINASE 45 U/L (39-308)
[2016-12-20] VITALS (8 sets, daily range): BP systolic 106–140; BP diastolic 66–93; PULSE 56–71; RESP 18–21; TEMP 97.9–98.8; O2SAT 98–100
[2016-12-20] MEDS: MORPHINE SULFATE 4 MG/ML INJ IV PUSH PRN ×3 (00:49→12:46)
[2016-12-20] MEDS: CLINDAMYCIN 150 MG CAP PO SCH ×2 (05:38→12:46)
[2016-12-20] MEDS: ACETAMINOPHEN/HYDROcodone 325 MG/7.5 MG TAB PO PRN (05:38)
[2016-12-20] MEDS: ALPRAZolam 1 MG TAB PO PRN (07:45)
[2016-12-20 09:01] LABS: BICARBONATE 25.5 MEQ/L (21.0-32.0); POTASSIUM 3.9 MEQ/L (3.5-5.1)
[2016-12-20] MEDS: SODIUM CHLORIDE 0.9% FLUSH 10 ML FLUSH IV FLUSH SCH (09:01)
[2016-12-20] MEDS ORDERED: MEMANTINE HCL 10 MG TAB PO SCH (09:45)
[2016-12-20] MEDS ORDERED: ALPRAZolam 1 MG TAB PO PRN (09:45)
[2016-12-20] MEDS ORDERED: REGADENOSON INJ 0.4 MG/5 ML SYR ONE (11:29)
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
--- NOTE | 2016-12-20 12:35 | RADRPT ---
EXAM DATE/TIME: 12/20/2016 11:01 [facility] COMPARISON: CHEST SINGLE AP, December 19, 2016, 15:26. INDICATIONS : Susbternal chest pain with dyspnea, nausea and diaphoresis. Angina. DOSE: 25.7 mCi Tc99m Myoview at stress. 8.5 mCi Tc99m Myoview at rest. 0.4 mg Lexiscan STRESS SYMPTOMS: Left sided chest pain, short of breath and headache. EJECTION FRACTION: 56% MEDICAL HISTORY : Traumatic brain injury. SURGICAL HISTORY : Knee and back surgeries. ENCOUNTER: Initial ACUITY: 1 day PAIN SCALE: 6/10 LOCATION: Substernal chest TECHNIQUE: The patient underwent pharmacologic stress with infusion of prescribed dose. Continuous ECG tracing was monitored during stress. Gated SPECT imaging was performed after stress and conventional SPECT i maging was performed at rest. The examination was performed on a SPECT/CT scanner, both attenuation and non-corrected datasets were reviewed. FINDINGS: DISTRIBUTION: The maximum perfused segment at stress is in the inferior wall. PERFUSION STUDY: No definite fixed or reversible perfusion defect is identified. Mucosal changes in the inferior wall near the base and believe are related to differences in segmentation between the stress and rest seri es. GATED STUDY: There is intact wall motion and thickening without hypokinetic or dyskinetic segments. CONCLUSION: 1. No fixed or reversible perfusion defect is appreciated. 2. Normal left ventricle wall motion and ejection fraction. RISK CATEGORY: Low (<1% Annual Mortality Rate) Carlos Heredia MD on December 20, 2016 at 12:28 Board Certified Radiologist. This report was verified electronically.
--- NOTE | 2016-12-20 13:50 | HHI.DCPOC ---
Discharge Care Plan Diagnosis: (1) Chest pain (2) Tobacco abuse (3) Abscess of forearm, left (4) Back pain Goals to Promote Your Health * To prevent worsening of your condition and complications * To maintain your health at the optimal level Directions to Meet Your Goals Take your medications as prescribed Follow your dietary instruction Follow activity as directed Keep your appointments as scheduled Take your immunizations and boosters as scheduled If your symptoms worsen call your PCP, if no PCP go to Urgent Care Center or Emergency Room Smoking is Dangerous to Your Health. Avoid second hand smoke Call the 24-hour hour crisis hotline for domestic abuse at Jason Chiu December 20, 2016 13:50
--- NOTE | 2016-12-20 15:27 | TR ---
Date Performed: 12/20/2016 Time Performed: 11:40:37 DOCTOR: Sarthak Olson DRUG LIST: CLINICAL HISTORY: REASON FOR TEST: REASON FOR ENDING: OBSERVATION: CONCLUSION: Lexiscan stress test was performed under standard four minute protocol. Radionuclid e was injected one minute prior to ending the test. No electrocardiographic abormalities were present to suggest ischemia. Nuclear imaging and interpretation are pending. COMMENTS:
--- NOTE | 2016-12-20 15:36 | EKG ---
Date Performed: 12/19/2016 Time Performed: 22:17:37 PTAGE: 46 years EKG: Sinus rhythm POSSIBLE RIGHT VENTRICULAR CONDUCTION DELAY BORDERLINE ECG PREVIOUS TRACING : 12/19/2016 18.23 Since previous tracing, no significant change noted DOCTOR: Sarthak Olson Interpretating Date/Time 12/20/2016 15:34:03
--- NOTE | 2016-12-20 15:37 | EKG ---
Date Performed: 12/19/2016 Time Performed: 18:23:38 PTAGE: 46 years EKG: SINUS BRADYCARDIA WITH MARKED SINUS ARRHYTHMIA BORDERLINE ECG PREVIOUS TRACING : 09/22/2001 08.58 Since previous tracing, no significant change noted DOCTOR: Sarthak Olson Interpretating Date/Time 12/20/2016 15:35:49
--- NOTE | 2016-12-20 15:39 | EKG ---
Date Performed: 12/19/2016 Time Performed: 15:13:14 PTAGE: 46 years EKG: Sinus rhythm WITH SINUS ARRHYTHMIA BORDERLINE ECG Since PREVIOUS TRACING , no significant change noted DOCTOR: Sarthak Olson Interpretating Date/Time 12/20/2016 15:39:01
[2016-12-20] MEDS ORDERED: DONEPEZIL HCL 5 MG TAB PO SCH (21:00)
== END 2016-12-20 16:52 | disposition home or self-care (01) ==
LOC: NEPC 14:58 → NEDA 17:54 → NEPFCDU 19:00
DX: R07.2 Precordial pain (principal); L02.511 Cutaneous abscess of right hand; R61 Generalized hyperhidrosis; G89.29 Other chronic pain; M54.9 Dorsalgia, unspecified; F43.10 Post-traumatic stress disorder, unspecified; F17.210 Nicotine dependence, cigarettes, uncomplicated; Z86.73 Personal history of transient ischemic attack (TIA), and cerebral infarction without residual deficits
CPT/HCPCS: 10060; 71010; 78452; 80048; 80053; 82550; 83735; 84484; 85025; 85610; 85730; 87070; 87205; 93005; 93017; 96361; 96365; 96368; 99285; A9502; G0378; J2270; J2785; J3480; J7040

== ENCOUNTER 2017-01-07 05:23 | Inpatient (IN) | payer OTHER, MEDICARE ==
[~2017-01-07] VITALS: Ht 180.3 cm; Wt 83.0 kg
[~2017-01-07 05:23] MED LIST changes: -ALEN1TAB48 PO; -ARIC10TA PO; +ARIC23TA PO; +NAME10TA PO; +XANA1TAB2 PO
[2017-01-07 05:25] VITALS: BP 142/91; PULSE 97; RESP 16; TEMP 98.3; O2SAT 97
[2017-01-07] MEDS ORDERED: VANCOMYCIN INJ 1,500 MG in SODIUM CHLORID 0.9% 500 ML INJ 500 ML IV ONE (06:00)
--- NOTE | 2017-01-07 06:02 | PD ---
HPI Chief Complaint: Skin Problem Time Seen by Provider: 05:53 Travel History International Travel<30 days: No Contact w/Intl Traveler<30days: No Traveled to known affect area: No History of Present Illness HPI The patient has pain and swelling in the left dorsal foot. He is 46 years old. He's had the foot pain and swelling for about 2 weeks. He is now 14 days into a course of clindamycin and reports no significant improvement however he has developed diarrhea. He reports not taking clindamycin this morning. He's had no fever. He notes a fair amount of drainage from the dorsal foot earlier today. He arrives due to increasing pain as well as erythema extending proximally from the dorsal foot. The pain is constant and worse with palpation. He denies IV drug abuse. PFSH Past Medical History Hx Anticoagulant Therapy: Yes (ASA) Cardiovascular Problems: No Cerebrovascular Accident: Yes Diabetes: No Diminished Hearing: No Kidney Stones: Yes Neurologic: Yes (traumatic brain injury) Psychiatric: Yes (PTSD) Immunizations Current: Yes Social History Alcohol Use: No Tobacco Use: Yes (/2 PPD) Substance Use: No Allergies-Medications (Allergen,Severity, Reaction): Coded Allergies: Vistaril (Verified Allergy, Intermediate, AGITATION, 01/07/17) Reported Meds & Prescriptions Reported Meds & Active Scripts Active Reported Xanax (Alprazolam) 1 Mg Tab 1 Mg PO Q6H PRN Namenda (Memantine) 10 Mg Tab 10 Mg PO BID Aricept (Donepezil) 23 Mg Tab 10 Mg PO HS Do not split, crushed or chewed. Review of Systems Except as stated in HPI: all other systems reviewed are Neg Physical Exam Narrative GENERAL: 46-year-old male nourished well developed acute distress SKIN: Focused skin assessment warm/dry. The left foot is erythematous about the entire dorsal aspect with about 3 cm of raised elevated erythema in an open wound consistent with abscess which appears to be draining as well as some focal cellulitis. The area is tender. Lymphangitic streaks are observed extending proximally to just below the knee. HEAD: Atraumatic. Normocephalic. EYES: Pupils equal and round. No scleral icterus. No injection or drainage. ENT: No nasal bleeding or discharge. Mucous membranes pink and moist. NECK: Trachea midline. No JVD. CARDIOVASCULAR: Regular rate and rhythm. No murmur appreciated. RESPIRATORY: No accessory muscle use. Clear to auscultation. Breath sounds equal bilaterally. GASTROINTESTINAL: Abdomen soft, non-tender, nondistended. Hepatic and splenic margins not palpable. MUSCULOSKELETAL: No obvious deformities. No clubbing. No cyanosis. No edema. NEUROLOGICAL: Awake and alert. No obvious cranial nerve deficits. Motor grossly within normal limits. Normal speech. PSYCHIATRIC: Appropriate mood and affect; insight and judgment normal. Data Data Last Documented VS Vital Signs Date Time Temp Pulse Resp B/P Pulse Ox O2 Delivery O2 Flow Rate FiO2 01/07/17 05:25 98.3 97 16 142/91 97 Room Air Vital signs reviewed Orders Basic Metabolic Panel (Bmp) (01/07/17 05:53) Complete Blood Count With Diff (01/07/17 05:53) Wound Culture And Gram Stain (01/07/17 05:53) Iv Access Insert/Monitor (01/07/17 05:53) Vancomycin Inj (Vancomycin Inj) (01/07/17 06:00) Foot, Limited (2vws) (01/07/17 ) Sodium Chlor 0.9% 1000 Ml Inj (Ns 1000 M (01/07/17 06:45) Admit Order (Ed Use Only) (01/07/17 06:52) Labs Laboratory Tests Test 01/07/17 06:00 White Blood Count 12.9 TH/MM3 Red Blood Count 4.85 MIL/MM3 Hemoglobin 14.4 GM/DL Hematocrit 44.1 % Mean Corpuscular Volume 90.9 FL Mean Corpuscular Hemoglobin 29.7 PG Mean Corpuscular Hemoglobin 32.6 % Concent Red Cell Distribution Width 15.2 % Platelet Count 250 TH/MM3 Mean Platelet Volume 7.8 FL Neutrophils (%) (Auto) 74.1 % Lymphocytes (%) (Auto) 17.1 % Monocytes (%) (Auto) 7.7 % Eosinophils (%) (Auto) 0.3 % Basophils (%) (Auto) 0.8 % Neutrophils # (Auto) 9.6 TH/MM3 Lymphocytes # (Auto) 2.2 TH/MM3 Monocytes # (Auto) 1.0 TH/MM3 Eosinophils # (Auto) 0.0 TH/MM3 Basophils # (Auto) 0.1 TH/MM3 CBC Comment DIFF FINAL Differential Comment Sodium Level 140 MEQ/L Potassium Level 4.2 MEQ/L Chloride Level 107 MEQ/L Carbon Dioxide Level 25.1 MEQ/L Anion Gap 8 MEQ/L Blood Urea Nitrogen 25 MG/DL Creatinine 1.27 MG/DL Estimat Glomerular Filtration 61 ML/MIN Rate Random Glucose 109 MG/DL Calcium Level 8.6 MG/DL [facility] Medical Decision Making Medical Screen Exam Complete: Yes Emergency Medical Condition: Yes Medical Record Reviewed: Yes Differential Diagnosis Cellulitis, sepsis, abscess, osteomyelitis, necrotizing fasciitis Narrative Course CBC & BMP Diagram 01/07/17 06:00 Plan further x-ray reveals no free air or sign of osteomyelitis The patient was started on vancomycin. A wound culture was sent. If he has in fact completed nearly 2 weeks of clindamycin and has a persistent left foot cellulitis we'll admit him for IV abx. Vanco started. d/w Dr Simon. Sepsis Criteria SIRS Criteria (2 or more): Heart rate over 90, WBC > 17693, < 4000 or > 10% bands Sepsis Criteria (SIRS+source): Infect source susp/known Diagnosis Primary Impression: Cellulitis Qualified Code: L03.116 - Cellulitis of left lower extremity Additional Impression: Dehydration Admitting Information Admitting Physician Requests: Steve Dickey MD Jan 07, 2017 06:02
[2017-01-07 06:12] LABS: AUTOMATED NEUTROPHIL # 9.6 TH/MM3 (1.8-7.7); BASOPHIL # 0.1 TH/MM3 (0-0.2); BASOPHIL % 0.8 % (0.0-2.0); EOSINOPHIL % 0.3 % (0.0-4.0); HEMATOCRIT 44.1 % (39.0-51.0); HEMO FLAGS DIFF FINAL; LYMPH % 17.1 % (9.0-44.0); LYMPHOCYTE # 2.2 TH/MM3 (1.0-4.8); MEAN CELL VOLUME 90.9 FL (80.0-100.0); MEAN CORPUSCULAR HEMOGLOBIN 29.7 PG (27.0-34.0); MEAN CORPUSCULAR HGB CONC 32.6 % (32.0-36.0); MONO % 7.7 % (0.0-8.0); NEUT % 74.1 % (16.0-70.0); PLATELET COUNT 250 TH/MM3 (150-450); RED BLOOD COUNT 4.85 MIL/MM3 (4.50-5.90); RED CELL DISTRIBUTION WIDTH 15.2 % (11.6-17.2); WHITE BLOOD COUNT 12.9 TH/MM3 (4.0-11.0)
[2017-01-07 06:27] LABS: BICARBONATE 25.1 MEQ/L (21.0-32.0); POTASSIUM 4.2 MEQ/L (3.5-5.1)
--- NOTE | 2017-01-07 06:38 | RADRPT ---
EXAM DATE/TIME: 01/07/2017 05:59 [facility] COMPARISON: No previous studies available for comparison. INDICATIONS : Ulcer to the dorsum of the left foot. MEDICAL HISTORY : None. SURGICAL HISTORY : None. ENCOUNTER: Initial ACUITY: 1 week PAIN SCORE: 6/10 LOCATION: Left foot FINDINGS: No definite fractures, or dislocations are identified. No definite lytic or sclerotic lesion is seen . The joint spaces are well maintained. CONCLUSION: Unremarkable study. Ken Parmar MD on January 07, 2017 at 6:36 Board Certified Radiologist. This report was verified electronically.
[2017-01-07] MEDS ORDERED: SODIUM CHLOR 0.9% 1000 ML INJ 1,000 ML IV ONE (06:45)
[2017-01-07] MEDS ORDERED: Vancomycin Consult Pharmacy 1 EA OTHER SCH (07:00)
[2017-01-07] MEDS ORDERED: NALOXONE HCL 0.4 MG/ML AMP IV PRN (07:00)
--- NOTE | 2017-01-07 07:41 | HHI.HP ---
[facility] No Primary Care Physician Admission Diagnosis L Foot Cellulitis (Resistant to oupt [place]) Diagnoses: (1) Cellulitis Chief Complaint: left foot infection Travel History International Travel<30 Days: No Contact w/Intl Traveler <30 Da: No Traveled to Known Affected Are: No Sepsis Criteria SIRS Criteria (2 or more): Heart rate over 90, WBC > 29299, < 4000 or > 10% bands Sepsis Criteria (SIRS+source): Infect source susp/known Criteria Outcome: Meets sepsis criteria History of Present Illness patient is a 46 y/o male with history of TBI and PTSD who presented to ER with left foot infection. he says that it started about ten days ago and gradually got worse. he denies any fever or chills but complaining of moderate pain to the left foot. he says that he took clindamycin for about ten days without significant improvement. he says that he noticed considerable amount of fluid discharge from the infected site last night. Review of Systems Constitutional: DENIES: Fever, Weight loss, Chills, Night Sweats Eyes: DENIES: Blurred vision, Diplopia, Vision loss, Double Vision Ears, nose, mouth, throat: DENIES: Tinnitus, Vertigo, Throat pain, Epistaxis Respiratory: DENIES: Apneas, Cough, Snoring, Wheezing, Hemoptysis, Sputum production, Shortness of breath Cardiovascular: DENIES: Chest pain, Palpitations, Syncope, Dyspnea on Exertion , PND, Lower Extremity Edema, Orthopnea, Claudication Gastrointestinal: DENIES: Abdominal pain, Black stools, Bloody stools, Constipation, Diarrhea, Nausea, Vomiting, Difficulty Swallowing, Anorexia Genitourinary: DENIES: Urinary frequency, Urgency, Hematuria, Dysuria Musculoskeletal: COMPLAINS OF: Joint pain (left foot), DENIES: Muscle aches, Stiffness, Joint Swelling Integumentary: DENIES: Rash Neurologic: DENIES: Abnormal gait, Headache, Localized weakness, Paresthesias, Seizures, Speech Problems, Tremor, Poor Balance Psychiatric: DENIES: Anxiety, Confusion, Mood changes, Depression, Hallucinations, Agitation, Suicidal Ideation, Homicidal Ideation, Delusions Past Family Social History Past Medical History PTSD TBI Past Surgical History knee surgery Reported Medications Xanax (Alprazolam) 1 Mg Tab 1 Mg PO Q6H PRN Namenda (Memantine) 10 Mg Tab 10 Mg PO BID Aricept (Donepezil) 23 Mg Tab 10 Mg PO HS Do not split, crushed or chewed. Allergies: Coded Allergies: Vistaril (Verified Allergy, Intermediate, AGITATION, 01/07/17) Active Ordered Medications Current Medications Vancomycin HCl 1500 mg/Sodium Chloride 515 ml @ 257.5 mls/ hr ONCE ONCE IV Last administered on 01/07/17 06:37; Start 01/07/17 at 06:00; Stop 01/07/17 at 07:59 Sodium Chloride (NS 1000 ml Inj) 1,000 ml @ 999 mls/hr BOLUS ONCE IV Last administered on 01/07/17 06:50; Start 01/07/17 at 06:45; Stop 01/07/17 at 07:45 Sodium Chloride (NS Flush) 2 ml UNSCH PRN IV FLUSH FLUSH AFTER USING IV ACCESS ; Start 01/07/17 at 07:00; Status UNV Sodium Chloride (NS Flush) 2 ml BID IV FLUSH ; Start 01/07/17 at 09:00; Status UNV Naloxone HCl 0.4 mg 0.4 mg UNSCH PRN IV SEE LABEL COMMENTS; Start 01/07/17 at 07:00; Status UNV Pharmacy Profile Note 0 ml @ 0 mls/hr UNSCH OTHER ; Start 01/07/17 at 07:00; Status UNV Piperacillin Sod/ Tazobactam Sod (Zosyn 4.5 Gm Premix) 100 ml @ 200 mls/hr Q6H IV ; Start 01/07/17 at 07:00; Status UNV Family History not relevant to this presentation. Social History smokes half a pack a day- doesn't drink. Physical Exam Vital Signs Vital Signs Date Time Temp Pulse Resp B/P Pulse Ox O2 Delivery O2 Flow Rate FiO2 01/07/17 05:25 98.3 97 16 142/91 97 Room Air Physical Exam GENERAL: This is a well-nourished, well-developed patient, in no apparent distress. SKIN: erythema and swelling over the left foot HEAD: Atraumatic. Normocephalic. No temporal or scalp tenderness. EYES: Pupils equal round and reactive. Extraocular motions intact. No scleral icterus. No injection or drainage. ENT: Nose without bleeding, purulent drainage or septal hematoma. Throat without erythema, tonsillar hypertrophy or exudate. Uvula midline. Airway patent. NECK: Trachea midline. No JVD or lymphadenopathy. Supple, nontender, no meningeal signs. CARDIOVASCULAR: Regular rate and rhythm without murmurs, gallops, or rubs. RESPIRATORY: Clear to auscultation. Breath sounds equal bilaterally. No wheezes , rales, or rhonchi. GASTROINTESTINAL: Abdomen soft, non-tender, nondistended. No hepato-splenomegaly , or palpable masses. No guarding. MUSCULOSKELETAL: Extremities without clubbing, cyanosis, or edema. No joint tenderness, effusion, or edema noted. No calf tenderness. Negative Homans sign bilaterally. NEUROLOGICAL: Awake and alert. Cranial nerves II through XII intact. Motor and sensory grossly within normal limits. Five out of 5 muscle strength in all muscle groups. Normal speech. Laboratory Laboratory Tests Test 01/07/17 06:00 White Blood Count 12.9 Red Blood Count 4.85 Hemoglobin 14.4 Hematocrit 44.1 Mean Corpuscular Volume 90.9 Mean Corpuscular Hemoglobin 29.7 Mean Corpuscular Hemoglobin 32.6 Concent Red Cell Distribution Width 15.2 Platelet Count 250 Mean Platelet Volume 7.8 Neutrophils (%) (Auto) 74.1 Lymphocytes (%) (Auto) 17.1 Monocytes (%) (Auto) 7.7 Eosinophils (%) (Auto) 0.3 Basophils (%) (Auto) 0.8 Neutrophils # (Auto) 9.6 Lymphocytes # (Auto) 2.2 Monocytes # (Auto) 1.0 Eosinophils # (Auto) 0.0 Basophils # (Auto) 0.1 CBC Comment DIFF FINAL Differential Comment Sodium Level 140 Potassium Level 4.2 Chloride Level 107 Carbon Dioxide Level 25.1 Anion Gap 8 Blood Urea Nitrogen 25 Creatinine 1.27 Estimat Glomerular Filtration 61 Rate Random Glucose 109 Calcium Level 8.6 Date/Time Procedure Status Source Growth 01/07/17 06:00 Gram Stain Received Wound Foot Pending 01/07/17 06:00 Wound Culture Received Wound Foot Pending Result Diagram: 01/07/17 0600 01/07/17 0600 Imaging Last Impressions Foot X-Ray 01/07/17 0000 Signed Impressions: Service Date/Time: December 05:59 - CONCLUSION: Unremarkable study. K. Obi Parmar MD Assessment and Plan Assessment and Plan A/P - sepsis due to cellulitis of the left foot- failed outpatient treatment continue with broad-spectrum IV antibiotics- follow the cultures- continue with pain control and consult podiatry -history of PTSD and TBI- resume home meds Discussed Condition With the patient. Problem Qualifiers (1) Cellulitis: Qualified Code: L03.116 - Cellulitis of left lower extremity Josef Mcginnis MD Jan 07, 2017 07:41
[2017-01-07] MEDS ORDERED: ACETAMINOPHEN/HYDROcodone 325 MG/5 MG TAB PO PRN (07:45)
[2017-01-07] MEDS ORDERED: ACETAMINOPHEN 325 MG TAB PO PRN (07:45)
[2017-01-07] MEDS: ALPRAZolam 1 MG TAB PO PRN ×3 (08:43→20:50)
[2017-01-07] MEDS: MEMANTINE HCL 10 MG TAB PO SCH ×2 (08:58→20:50)
[2017-01-07] MEDS: PIPERACIL-TAZO 4.5 GM PREMIX 100 ML IV SCH ×3 (08:59→20:49)
[2017-01-07] MEDS: SODIUM CHLORIDE 0.9% FLUSH 10 ML FLUSH IV FLUSH SCH ×2 (08:59→20:56)
[2017-01-07] MEDS: KETOROLAC TROMETHAMINE 30 MG/ML (IVP) VIAL IV PUSH PRN ×2 (11:48→20:56)
[2017-01-07 11:50] VITALS: BP 105/56; PULSE 70; RESP 14; TEMP 97.6; O2SAT 97
--- NOTE | 2017-01-07 12:37 | PD.POD.CON ---
Patient Intake Chief Complaint Infection left foot Consult Requested by Dr. Smith Reason for Consult Evaluation and treatment of left foot wound Primary Care Physician No Primary Care Physician History of Present Illness 46-year-old male presents with an infected left foot. It's been going on for last 3 days and getting worse. He presented to [place] ED. 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 Coded Allergies: Vistaril (Verified Allergy, Intermediate, AGITATION, 01/07/17) Preferred Language to Discuss: Kazakh Barriers to Learning: None Teaching Method: Discussion Vital Signs Date Time Temp Pulse Resp B/P Pulse Ox O2 Delivery O2 Flow Rate FiO2 01/07/17 11:50 97.6 70 14 105/56 97 Room Air 01/07/17 05:25 98.3 97 16 142/91 97 Room Air Pain scale used: 0-10 numeric scale Pain score: 6 Medications Current Medications Vancomycin HCl 1500 mg/Sodium Chloride 515 ml @ 257.5 mls/ hr ONCE ONCE IV Last administered on 01/07/17 06:37; Start 01/07/17 at 06:00; Stop 01/07/17 at 07:59; Status DC Sodium Chloride (NS 1000 ml Inj) 1,000 ml @ 999 mls/hr BOLUS ONCE IV Last administered on 01/07/17 06:50; Start 01/07/17 at 06:45; Stop 01/07/17 at 07:45 ; Status DC Sodium Chloride (NS Flush) 2 ml UNSCH PRN IV FLUSH FLUSH AFTER USING IV ACCESS ; Start 01/07/17 at 07:00 Sodium Chloride (NS Flush) 2 ml BID IV FLUSH ; Start 01/07/17 at 09:00 Naloxone HCl 0.4 mg 0.4 mg UNSCH PRN IV SEE LABEL COMMENTS; Start 01/07/17 at 07:00 Pharmacy Profile Note 0 ml @ 0 mls/hr UNSCH OTHER ; Start 01/07/17 at 07:00 Piperacillin Sod/ Tazobactam Sod (Zosyn 4.5 Gm Premix) 100 ml @ 200 mls/hr Q6H IV Last administered on 01/07/17 08:59; Start 01/07/17 at 09:00 Acetaminophen (Tylenol) 650 mg Q4H PRN PO FEVER/PAIN < 5; Start 01/07/17 at 07: 45 Acetaminophen/ Hydrocodone Bitart ([place] 5-325 Mg) 1 tab Q4H PRN PO PAIN>5 Last administered on 01/07/17 08:06; Start 01/07/17 at 07:45 Alprazolam (Xanax) 1 mg Q6H PRN PO ANXIETY Last administered on 01/07/17 08:43 ; Start 01/07/17 at 07:45 Donepezil HCl (Aricept) 10 mg HS PO ; Start 01/07/17 at 21:00 Memantine 10 mg 10 mg BID PO Last administered on 01/07/17 08:58; Start at 09:00 Vancomycin HCl/ Sodium Chloride (Vancomycin Inj/ NS 250 ml Inj) 262.5 ml @ 250 mls/hr Q18H IV ; Start 01/08/17 at 00:00 Miscellaneous Information SPECIFIC LAB TO BE DRAWN:VANCOMYCIN TROUGH DATE TO... ONCE ONCE .XX ; Start 01/09/17 at 11:45; Stop 01/09/17 at 11:46 Ketorolac Tromethamine (Toradol Inj) 15 mg Q8HR PRN IV PUSH BREAKTHROUGH PAIN Last administered on 01/07/17 11:48; Start 01/07/17 at 11:15; Stop 01/12/17 at 11:14 Past, Family & Social History Past Medical History PFSH Reviewed: Yes Neurologic: REPORTS HX OF: Peripheral neuropathy, Other neurologic history ( pneumatic brain injury) Review of Systems Constitutional: COMPLAINS OF: Pain Eyes: DENIES: Blurred/Double vision, Hx eye disease Ears/Nose/Mouth/Throat: DENIES: Ringing in ears, Change in hearing, Deafness/ hearing aid, Sore throat, Trouble swallowing Cardiovascular: DENIES: Heart Disease, Hx CHF / chest pain, Hx hypertension, Hx phlebitis / clots, Swelling legs / ankles, Varicose veins, Hx Rheumatic Fever Respiratory: DENIES: Frequent colds, Difficulty breathing, Cough (productive?) , Asthma / hay fever, Emphysema, TB Gastrointestinal: DENIES: Heartburn, Vomiting, Constipation, Diarrhea, Black Stools, Blood in stools, Peptic ulcer, Abdominal pain Genitourinary: DENIES: Renal disease, Dialysis, Freq or burning urination, Blood in urine, Difficulty in urination, Incontinence Musculoskeletal: DENIES: Leg pain (rest or walk), Back pain, Joint pain/swell/ dysarthr, Deformaties Integumentary: DENIES: Rash, Hx masses/lumps, Birthmrk/wart/lump/nodule, Slow to heal after cuts, Bleeding/bruising tendncy Neurological: COMPLAINS OF: Numbness/tingling, Changes in sensation Psychiatric: DENIES: Depression/anxiety, Change in memory, Insomnia Endocrine: DENIES: Thyroid disease, Heat/cold intolerance, Excessive thirst Hematologic/Lymphatic: DENIES: Blood borne disease, Anemia, Blood abnormalities Allergic/Immunologic: DENIES: Rheumatoid Arthritis, Skin/Food/Drug reaction, Lupus, Sickle Cell disease, Scleroderma, Vasculitis Exam-Podiatry Constitutional General appearance: comfortable Nutritional status: normal Orientation: alert and oriented x3 Dermatological Exam Skin Temp - Right: Within Normal Limits Skin Texture - Right: Within Normal Limits Skin Elasticity - Right: Within Normal Limits Skin Tugor - Right: Within Normal Limits Hair Growth - Right: Within Normal Limits Pigmentation - Right: Within Normal Limits Skin Temp - Left: Hot Skin Texture - Left: Within Normal Limits Skin Elasticity - Left: Within Normal Limits Skin Tugor - Left: Within Normal Limits Hair Growth - Left: Within Normal Limits Pigmentation - Left: Within Normal Limits Ulcers: Location/Measurements 2 cm erythematous abscess dorsal lateral aspect of the left foot. No drainage noted. Some fluctuant presents. Vascular/Lymphatic Exam R Dorsails Pedis: Palpable L Dorsails Pedis: Palpable R Posterior Tibial: Palpable L Posterior Tibial: Palpable Neurologic Exam Present on right: Paraesthesia Present on left: Paraesthesia Muscle Strength Dorsiflexion (Right): Normal Plantarflexion (Right): Normal Inversion (Right): Normal Eversion (Right): Normal Digital (Right): Normal Dorsiflexion (Left): Normal Plantarflexion (Left): Normal Inversion (Left): Normal Eversion (Left): Normal Digital (Left): Normal Foot Range of Motion Dorsiflexion (Right): Normal Plantarflexion (Right): Normal Inversion (Right): Normal Eversion (Right): Normal Digital (Right): Normal Dorsiflexion (Left): Normal Plantarflexion (Left): Normal Inversion (Left): Normal Eversion (Left): Normal Digital (Left): Normal Lab and Radiology Results Laboratory Laboratory Tests Test 01/07/17 06:00 White Blood Count 12.9 TH/MM3 Red Blood Count 4.85 MIL/MM3 Hemoglobin 14.4 GM/DL Hematocrit 44.1 % Mean Corpuscular Volume 90.9 FL Mean Corpuscular Hemoglobin 29.7 PG Mean Corpuscular Hemoglobin 32.6 % Concent Red Cell Distribution Width 15.2 % Platelet Count 250 TH/MM3 Mean Platelet Volume 7.8 FL Neutrophils (%) (Auto) 74.1 % Lymphocytes (%) (Auto) 17.1 % Monocytes (%) (Auto) 7.7 % Eosinophils (%) (Auto) 0.3 % Basophils (%) (Auto) 0.8 % Neutrophils # (Auto) 9.6 TH/MM3 Lymphocytes # (Auto) 2.2 TH/MM3 Monocytes # (Auto) 1.0 TH/MM3 Eosinophils # (Auto) 0.0 TH/MM3 Basophils # (Auto) 0.1 TH/MM3 CBC Comment DIFF FINAL Differential Comment Laboratory Tests Test 01/07/17 06:00 Sodium Level 140 MEQ/L Potassium Level 4.2 MEQ/L Chloride Level 107 MEQ/L Carbon Dioxide Level 25.1 MEQ/L Anion Gap 8 MEQ/L Blood Urea Nitrogen 25 MG/DL Creatinine 1.27 MG/DL Estimat Glomerular Filtration 61 ML/MIN Rate Random Glucose 109 MG/DL Calcium Level 8.6 MG/DL Microbiology Date/Time Procedure Status Source Growth 01/07/17 06:00 Gram Stain Received Wound Foot Pending 01/07/17 06:00 Wound Culture Received Wound Foot Pending Radiology Last Impressions Foot X-Ray 01/07/17 0000 Signed Impressions: Service Date/Time: December 05:59 - CONCLUSION: Unremarkable study. Ken Parmar MD Assessment/Plan Problem List: (1) Cellulitis Status: Acute (2) Abscess of foot without toes, left Status: Acute Additional Plans & Procedures PLAN: Patient will be taken to the OR Wednesday morning at 10 AM for incision and drainage of the abscess of the left foot. Discussed planned procedures with the patient. Preop consent orders and preop orders written. We'll continue to follow during the course of this admission. Problem Qualifiers (1) Cellulitis: Qualified Code: L03.116 - Cellulitis of left lower extremity Britton Mondragon DPM Jan 07, 2017 12:37
--- NOTE | 2017-01-07 13:05 | RADRPT ---
EXAM DATE/TIME: 01/07/2017 12:54 [place] COMPARISON: FOOT LEFT LIMITED (2VWS), January 07, 2017, 5:59. INDICATIONS : Cellulitis; foot infection for 1 week. MEDICAL HISTORY : CVA. SURGICAL HISTORY : None. ENCOUNTER: Initial ACUITY: 1 week PAIN SCORE: 0/10 LOCATION: Bilateral chest FINDINGS: PA and lateral views of the chest demonstrate the lungs to be symmetrically aerated without evidence of mass, infiltrate or effusion. The cardiomediastinal contours are unremarkable. Osseous structure s are intact. CONCLUSION: 1. No acute cardiopulmonary findings. Steve Connors MD on January 07, 2017 at 13:03 Board Certified Radiologist. This report was verified electronically.
[2017-01-07 13:30] VITALS: BP 112/68; PULSE 68; RESP 16; TEMP 97.6; O2SAT 98
[2017-01-07] MEDS: ACETAMINOPHEN/HYDROcodone 325 MG/5 MG TAB PO PRN ×3 (14:23→23:56)
[2017-01-07] MEDS: NICOTINE 21 MG/24 HR PATCH T-DERMAL SCH (15:56)
[2017-01-07 16:12] VITALS: BP 106/63; PULSE 90; RESP 16; TEMP 96.8; O2SAT 99
[2017-01-07 19:18] LABS: PROTHROMBIN TIME - PATIENT 10.7 SEC (9.8-11.6)
[2017-01-07 20:00] VITALS: BP 101/61; PULSE 81; RESP 20; TEMP 96.9; O2SAT 93; O2SAT 97
[2017-01-07] MEDS: DONEPEZIL HCL 5 MG TAB PO SCH (20:50)
[2017-01-07] MEDS: REMOVE OLD NICODERM (NICOTINE) PATCH T-DERMAL SCH (21:00)
[2017-01-07] MEDS: VANCOMYCIN INJ 1,250 MG in SODIUM CHLOR 0.9% 250 ML INJ 250 ML IV SCH (23:56)
[2017-01-08] VITALS (8 sets, daily range): BP systolic 105–134; BP diastolic 64–90; PULSE 56–85; RESP 16–20; TEMP 95.4–97.5; O2SAT 95–99
[2017-01-08] MEDS: PIPERACIL-TAZO 4.5 GM PREMIX 100 ML IV SCH ×4 (02:40→20:11)
[2017-01-08] MEDS: ALPRAZolam 1 MG TAB PO PRN ×4 (02:40→21:20)
[2017-01-08] MEDS: SODIUM CHLORIDE 0.9% FLUSH 10 ML FLUSH IV FLUSH PRN ×2 (02:41→06:20)
[2017-01-08] MEDS: ACETAMINOPHEN/HYDROcodone 325 MG/5 MG TAB PO PRN ×2 (03:50→07:56)
[2017-01-08] MEDS ORDERED: LACTATED RINGER'S 1000 ML IV PRN (05:45)
[2017-01-08] MEDS ORDERED: POVIDONE IODINE 5% (ANTISEPSIS KIT) 4 APPLICATIONS EACH NARE PRN (05:45)
[2017-01-08] MEDS ORDERED: CHLORHEXIDINE GLUCONATE 2 % 1 PACK (2 CLOTHS) TOPICAL PRN (05:45)
[2017-01-08] MEDS ORDERED: INSULIN HUMAN REGULAR 1,000 UNITS/10 ML VIAL SQ PRN (05:45)
[2017-01-08] MEDS: KETOROLAC TROMETHAMINE 30 MG/ML (IVP) VIAL IV PUSH PRN (06:19)
[2017-01-08] MEDS: NICOTINE 21 MG/24 HR PATCH T-DERMAL SCH (07:56)
[2017-01-08] MEDS: SODIUM CHLORIDE 0.9% FLUSH 10 ML FLUSH IV FLUSH SCH ×2 (07:57→21:22)
[2017-01-08] MEDS: MEMANTINE HCL 10 MG TAB PO SCH ×2 (07:57→20:14)
--- NOTE | 2017-01-08 08:34 | HHI.PR ---
Subjective Remarks in no acute distress. but is complaining of back pain and pain to the left foot and says that he couldn't sleep well because of the pain. remains afebrile. Objective Vitals Vital Signs Date Time Temp Pulse Resp B/P Pulse Ox O2 Delivery O2 Flow Rate FiO2 01/08/17 08:15 96.7 56 16 121/78 99 01/08/17 04:00 96.9 79 20 110/65 95 01/08/17 04:00 96.8 69 18 105/75 98 01/08/17 00:00 96.9 79 20 110/64 95 01/07/17 20:00 96.9 81 20 101/61 97 01/07/17 20:00 96.9 81 20 101/61 93 01/07/17 16:12 96.8 90 16 106/63 99 01/07/17 15:23 17 01/07/17 13:30 97.6 68 16 112/68 98 01/07/17 11:50 97.6 70 14 105/56 97 Room Air Result Diagram: 01/07/17 0600 01/07/17 0600 Imaging Last Impressions Foot X-Ray 01/07/17 0000 Signed Impressions: Service Date/Time: December 05:59 - CONCLUSION: Unremarkable study. KJasiel Parmar MD Chest X-Ray 01/07/17 0000 Signed Impressions: Service Date/Time: December 12:54 - CONCLUSION: 1. No acute cardiopulmonary findings. Steve Connors MD Objective Remarks GENERAL: This is a well-nourished, well-developed patient, in no apparent distress. CARDIOVASCULAR: Regular rate and regular rhythm without murmurs, gallops, or rubs. RESPIRATORY: Clear to auscultation. Breath sounds equal bilaterally. No wheezes , rales, or rhonchi. GASTROINTESTINAL: Abdomen soft, non-tender, nondistended. Normal, active bowel sounds MUSCULOSKELETAL: Extremities without clubbing, cyanosis, or edema. NEURO: Alert & Oriented x4 to person, place, time, situation. Moves all ext x4 skin; erythema over the left foot seems to be improving. Procedures none Medications and IVs Current Medications Vancomycin HCl 1500 mg/Sodium Chloride 515 ml @ 257.5 mls/ hr ONCE ONCE IV Last administered on 01/07/17 06:37; Start 01/07/17 at 06:00; Stop 01/07/17 at 07:59; Status DC Sodium Chloride (NS 1000 ml Inj) 1,000 ml @ 999 mls/hr BOLUS ONCE IV Last administered on 01/07/17 06:50; Start 01/07/17 at 06:45; Stop 01/07/17 at 07:45 ; Status DC Sodium Chloride (NS Flush) 2 ml UNSCH PRN IV FLUSH FLUSH AFTER USING IV ACCESS Last administered on 01/08/17 06:20; Start 01/07/17 at 07:00 Sodium Chloride (NS Flush) 2 ml BID IV FLUSH Last administered on 01/08/17 07: 57; Start 01/07/17 at 09:00 Naloxone HCl 0.4 mg 0.4 mg UNSCH PRN IV SEE LABEL COMMENTS; Start 01/07/17 at 07:00 Pharmacy Profile Note 0 ml @ 0 mls/hr UNSCH OTHER ; Start 01/07/17 at 07:00 Piperacillin Sod/ Tazobactam Sod (Zosyn 4.5 Gm Premix) 100 ml @ 200 mls/hr Q6H IV Last administered on 01/08/17 07:57; Start 01/07/17 at 09:00 Acetaminophen (Tylenol) 650 mg Q4H PRN PO FEVER/PAIN < 5; Start 01/07/17 at 07: 45 Acetaminophen/ Hydrocodone Bitart ([employer] 5-325 Mg) 1 tab Q4H PRN PO PAIN>5 Last administered on 01/07/17 08:06; Start 01/07/17 at 07:45; Stop 01/07/17 at 14:14; Status DC Alprazolam (Xanax) 1 mg Q6H PRN PO ANXIETY Last administered on 01/08/17 08:04 ; Start 01/07/17 at 07:45 Donepezil HCl (Aricept) 10 mg HS PO Last administered on 01/07/17 20:50; Start 01/07/17 at 21:00 Memantine 10 mg 10 mg BID PO Last administered on 01/08/17 07:57; Start at 09:00 Vancomycin HCl/ Sodium Chloride (Vancomycin Inj/ NS 250 ml Inj) 262.5 ml @ 250 mls/hr Q18H IV Last administered on 01/07/17 23:56; Start 01/08/17 at 00:00 Miscellaneous Information SPECIFIC LAB TO BE DRAWN:VANCOMYCIN TROUGH DATE TO... ONCE ONCE .XX ; Start 01/09/17 at 11:45; Stop 01/09/17 at 11:46 Ketorolac Tromethamine (Toradol Inj) 15 mg Q8HR PRN IV PUSH BREAKTHROUGH PAIN Last administered on 01/08/17 06:19; Start 01/07/17 at 11:15; Stop 01/12/17 at 11:14 Acetaminophen/ Hydrocodone Bitart ([employer] 5-325 Mg) 2 tab Q4H PRN PO PAIN>5 Last administered on 01/08/17 07:56; Start 01/07/17 at 14:15 Nicotine (Habitrol 21 Mg Patch.24 Hr) 1 patch DAILY T-DERMAL Last administered on 01/08/17 07:56; Start 01/07/17 at 16:00 Miscellaneous Information 1 1 HS T-DERMAL ; Start 01/07/17 at 21:00 Lactated Ringer's (Lr 1000 ml Inj) 1,000 ml @ 30 mls/hr Q24H PRN IV SEE LABEL COMMENTS; Start 01/08/17 at 05:45; Stop 01/11/17 at 05:44 Povidone Iodine (Betadine 5% Antisepsis Kit) 1 applic GRAPHIC ILLUSTRATOR PRN EACH NARE SEE LABEL COMMENTS; Start 01/08/17 at 05:45; Stop 01/11/17 at 05:44 Chlorhexidine Gluconate (Chlorhexidine 2% Cloth) 3 pack GRAPHIC ILLUSTRATOR PRN TOPICAL SEE LABEL COMMENTS; Start 01/08/17 at 05:45; Stop 01/11/17 at 05:44 Insulin Human Regular (NovoLIN R INJ) See Protocol Table ... GRAPHIC ILLUSTRATOR PRN SQ SEE PROTOCOL TABLE; Start 01/08/17 at 05:45; Stop 01/11/17 at 05:44 A/P Assessment and Plan A/P - sepsis due to cellulitis of the left foot- failed outpatient treatment continue with broad-spectrum IV antibiotics- follow the cultures- continue with pain control . podiatry consult appreciated and plan for I/D in OR today. -history of PTSD and TBI- resume home meds Josef Mcginnis MD Jan 08, 2017 08:34
[2017-01-08] MEDS ORDERED: ACETAMINOPHEN/HYDROcodone 325 MG/10 MG TAB PO PRN ×2 (09:00)
[2017-01-08] MEDS ORDERED: HYDROmorphone HCL PF 1 MG/ML VIAL IV PUSH PRN (09:00)
[2017-01-08] MEDS ORDERED: BUPIVACAINE HCL PF 0.5% 30 ML VIAL ONE (09:17)
[2017-01-08] MEDS ORDERED: ACETAMINOPHEN 1000 MG/100 ML VIAL IV ONE (09:46)
[2017-01-08] MEDS ORDERED: KETAMINE HCL 500 MG/5 ML VIAL ONE (09:47)
[2017-01-08] MEDS ORDERED: DEXAMETHASONE SOD PHOS 4 MG/ML VIAL ONE (09:47)
[2017-01-08] MEDS ORDERED: MIDAZOLAM HCL 5 MG/5 ML VIAL ONE (09:47)
[2017-01-08] MEDS ORDERED: HYDROmorphone HCL PF 2 MG/ML VIAL ONE ×2 (09:47→09:57)
[2017-01-08 10:19] LABS: AUTOMATED NEUTROPHIL # 3.4 TH/MM3 (1.8-7.7); BASOPHIL # 0.1 TH/MM3 (0-0.2); BASOPHIL % 0.9 % (0.0-2.0); EOSINOPHIL # 0.1 TH/MM3 (0-0.4); EOSINOPHIL % 2.1 % (0.0-4.0); HEMATOCRIT 41.1 % (39.0-51.0); HEMO FLAGS DIFF FINAL; LYMPH % 36.7 % (9.0-44.0); LYMPHOCYTE # 2.5 TH/MM3 (1.0-4.8); MEAN CELL VOLUME 89.7 FL (80.0-100.0); MEAN CORPUSCULAR HEMOGLOBIN 29.9 PG (27.0-34.0); MEAN CORPUSCULAR HGB CONC 33.3 % (32.0-36.0); MONO % 9.6 % (0.0-8.0); NEUT % 50.7 % (16.0-70.0); PLATELET COUNT 189 TH/MM3 (150-450); RED BLOOD COUNT 4.58 MIL/MM3 (4.50-5.90); RED CELL DISTRIBUTION WIDTH 14.6 % (11.6-17.2); WHITE BLOOD COUNT 6.7 TH/MM3 (4.0-11.0)
[2017-01-08 10:23] LABS: BICARBONATE 23.7 MEQ/L (21.0-32.0)
--- NOTE | 2017-01-08 10:39 | PD.OP ---
Operative Report Date of Surgery: Jan 08, 2017 Preoperative Diagnosis: (1) Abscess of foot without toes, left Postoperative Diagnosis: (1) Abscess of foot without toes, left Procedure: Incision and drainage of abscess left foot Anesthesia: Gen. inhalation Surgeon: Britton Mondragon DPM Inspector Subassemblies(s): Aiden Operation and Findings: Patient was brought to the operating room placed on the operating table in supine position. Pneumatic ankle cuff was placed around the patient's left ankle after adequate web roll padding. Patient was given general inhalation anesthesia. The left foot was prepped and draped in the usual sterile manner. After the appropriate timeout was performed the pneumatic ankle cuff was inflated to 250 mmHg. The left foot was lowered to the operating table and attention was directed to the dorsal lateral aspect. It was noted that the patient had an abscess approximately 1.5 x 1.5 cm. At this time using a bone curet, scissors and pickup the abscess was I&D didn't debrided of all necrotic tissue. The area was then flushed with copious amounts of sterile saline. Debrided tissue was sent for tissue culture. The wound was then anesthetized with 20 cc of 0.5% Marcaine plain. The wound was packed with Maxorb extra AG, 4 x 4's and a Issa dressing followed by an Don bandage. The pneumatic ankle cuff was deflated at the 10 minute corine and he should be noted the vascular status returned to all digits of the left foot. Estimated blood loss was less than 10 cc. Tissue was sent for culture and sensitivity. Sponge and instrument count were noted to be correct. Patient tolerated the procedures and anesthesia well and left the OR to PACU in apparent satisfactory conditions with all vital signs stable and vascular status intact to the left foot. Britton Mondragon DPM Jan 08, 2017 10:39
[2017-01-08] MEDS ORDERED: DO NOT ADM ANY ANTICOAGULANT DRUGS PRN (10:44)
[2017-01-08] MEDS ORDERED: SODIUM CHLORIDE 0.9% FLUSH 10 ML FLUSH IV FLUSH PRN (10:45)
[2017-01-08] MEDS ORDERED: NALOXONE HCL 0.4 MG/ML AMP IV PRN (10:45)
[2017-01-08] MEDS ORDERED: Post-op Orders (for Pharmacy) MISC XX ONE (10:45)
[2017-01-08] MEDS ORDERED: fentaNYL CITRATE 250 MCG/5 ML AMP ONE (10:50)
[2017-01-08] MEDS ORDERED: MIDAZOLAM HCL 2 MG/2 ML VIAL ONE (10:50)
[2017-01-08] MEDS: ACETAMINOPHEN 1000 MG/100 ML VIAL IV SCH ×2 (11:00→16:42)
[2017-01-08] MEDS ORDERED: *HYDROmorphone PF 1 MG VIAL PERIprocedural Use ONLY ONE (11:00)
[2017-01-08] MEDS ORDERED: KETOROLAC TROMETHAMINE 60 MG/2 ML (IM) VIAL IM ONE (12:00)
[2017-01-08] MEDS ORDERED: PROPOFOL 200 MG/20 ML AMP IV ONE (12:00)
[2017-01-08] MEDS ORDERED: HYDROmorphone HCL PF 1 MG/ML VIAL IV ONE (12:00)
[2017-01-08] MEDS ORDERED: ONDANSETRON HCL 4 MG/2 ML VIAL IV PUSH ONE (12:00)
[2017-01-08] MEDS: HYDROmorphone HCL PF 1 MG/ML VIAL IV PRN ×4 (12:12→21:21)
[2017-01-08] MEDS: HYDROmorphone HCL 2 MG TAB PO PRN ×2 (14:26→20:15)
[2017-01-08] MEDS: VANCOMYCIN INJ 1,250 MG in SODIUM CHLOR 0.9% 250 ML INJ 250 ML IV SCH (17:21)
[2017-01-08] MEDS: DONEPEZIL HCL 5 MG TAB PO SCH (20:14)
[2017-01-08] MEDS: REMOVE OLD NICODERM (NICOTINE) PATCH T-DERMAL SCH (21:00)
--- NOTE | 2017-01-08 22:43 | EKG ---
Date Performed: 01/07/2017 Time Performed: 17:07:27 PTAGE: 46 years EKG: Sinus rhythm NORMAL ECG PREVIOUS TRACING : 12/19/2016 22.17 DOCTOR: Mariaa Cohn Interpretating Date/Time 01/08/2017 22:42:01
[2017-01-08] MEDS ORDERED: diphenhydrAMINE HCL 50 MG CAP PO ONE (23:15)
[2017-01-09] VITALS: BP 118/64; PULSE 73; RESP 18; TEMP 97.7; O2SAT 96
[2017-01-09] MEDS: ACETAMINOPHEN 1000 MG/100 ML VIAL IV SCH ×2 (00:57→05:14)
[2017-01-09] MEDS: HYDROmorphone HCL PF 1 MG/ML VIAL IV PRN ×7 (01:25→21:24)
[2017-01-09] MEDS: SODIUM CHLORIDE 0.9% FLUSH 10 ML FLUSH IV FLUSH SCH ×5 (01:25→20:36)
[2017-01-09] MEDS: PIPERACIL-TAZO 4.5 GM PREMIX 100 ML IV SCH ×4 (01:57→20:46)
[2017-01-09] MEDS: HYDROmorphone HCL 2 MG TAB PO PRN ×4 (02:56→20:46)
[2017-01-09] MEDS: ALPRAZolam 1 MG TAB PO PRN ×3 (05:13→18:21)
[2017-01-09 08:00] VITALS: BP 130/80; PULSE 73; RESP 20; TEMP 96.7; O2SAT 98
[2017-01-09] MEDS: MEMANTINE HCL 10 MG TAB PO SCH ×2 (08:03→20:47)
[2017-01-09] MEDS: NICOTINE 21 MG/24 HR PATCH T-DERMAL SCH (08:04)
--- NOTE | 2017-01-09 08:16 | HHI.PR ---
Subjective Remarks in no acute distress. afebrile. complaining of pain to the left foot. asking for ' something to help him with the sleep'. d/w the RN. Objective Vitals Vital Signs Date Time Temp Pulse Resp B/P Pulse Ox O2 Delivery O2 Flow Rate FiO2 01/09/17 00:00 97.7 73 18 118/64 96 01/09/17 00:00 97.7 73 18 118/64 96 01/08/17 21:27 97 01/08/17 20:00 97.5 79 20 123/75 97 01/08/17 16:19 97.2 85 18 129/88 98 01/08/17 12:31 95.4 62 18 134/90 97 01/08/17 11:15 97.7 63 10 107/78 100 Room Air 01/08/17 11:00 64 10 115/77 98 Room Air 01/08/17 10:44 97.7 68 10 116/67 98 Nasal Cannula 2 01/08/17 08:15 96.7 56 16 121/78 99 I/O 01/08/17 01/08/17 01/08/17 01/09/17 01/09/17 01/09/17 07:00 15:00 23:00 07:00 15:00 23:00 Intake Total 1280 ml Output Total 10 ml Balance 1270 ml Intake Oral 480 ml IV Total 100 ml Other 700 ml Output Estimated Blood Loss 10 ml # Voids 2 Result Diagram: 01/08/17 0914 01/08/17 0914 Imaging Last Impressions Foot X-Ray 01/07/17 0000 Signed Impressions: Service Date/Time: December 05:59 - CONCLUSION: Unremarkable study. KJasiel Parmar MD Chest X-Ray 01/07/17 0000 Signed Impressions: Service Date/Time: December 12:54 - CONCLUSION: 1. No acute cardiopulmonary findings. Steve Connors MD Objective Remarks GENERAL: This is a well-nourished, well-developed patient, in no apparent distress. CARDIOVASCULAR: Regular rate and regular rhythm without murmurs, gallops, or rubs. RESPIRATORY: Clear to auscultation. Breath sounds equal bilaterally. No wheezes , rales, or rhonchi. GASTROINTESTINAL: Abdomen soft, non-tender, nondistended. Normal, active bowel sounds MUSCULOSKELETAL: Extremities without clubbing, cyanosis, or edema. NEURO: Alert & Oriented x4 to person, place, time, situation. Moves all ext x4 skin; erythema over the left foot seems to be improving. Procedures I/D of the left foot abscess. Medications and IVs Current Medications Vancomycin HCl 1500 mg/Sodium Chloride 515 ml @ 257.5 mls/ hr ONCE ONCE IV Last administered on 01/07/17 06:37; Start 01/07/17 at 06:00; Stop 01/07/17 at 07:59; Status DC Sodium Chloride (NS 1000 ml Inj) 1,000 ml @ 999 mls/hr BOLUS ONCE IV Last administered on 01/07/17 06:50; Start 01/07/17 at 06:45; Stop 01/07/17 at 07:45 ; Status DC Sodium Chloride (NS Flush) 2 ml UNSCH PRN IV FLUSH FLUSH AFTER USING IV ACCESS Last administered on 01/08/17 06:20; Start 01/07/17 at 07:00 Sodium Chloride (NS Flush) 2 ml BID IV FLUSH Last administered on 01/08/17 21: 22; Start 01/07/17 at 09:00 Naloxone HCl 0.4 mg 0.4 mg UNSCH PRN IV SEE LABEL COMMENTS; Start 01/07/17 at 07:00; Stop 01/08/17 at 10:50; Status DC Pharmacy Profile Note 0 ml @ 0 mls/hr UNSCH OTHER ; Start 01/07/17 at 07:00 Piperacillin Sod/ Tazobactam Sod (Zosyn 4.5 Gm Premix) 100 ml @ 200 mls/hr Q6H IV Last administered on 01/09/17 01:57; Start 01/07/17 at 09:00 Acetaminophen (Tylenol) 650 mg Q4H PRN PO FEVER/PAIN < 5; Start 01/07/17 at 07: 45; Stop 01/08/17 at 08:32; Status DC Acetaminophen/ Hydrocodone Bitart ([place] 5-325 Mg) 1 tab Q4H PRN PO PAIN>5 Last administered on 01/07/17 08:06; Start 01/07/17 at 07:45; Stop 01/07/17 at 14:14; Status DC Alprazolam (Xanax) 1 mg Q6H PRN PO ANXIETY Last administered on 01/09/17 05:13 ; Start 01/07/17 at 07:45 Donepezil HCl (Aricept) 10 mg HS PO Last administered on 01/08/17 20:14; Start 01/07/17 at 21:00 Memantine 10 mg 10 mg BID PO Last administered on 01/09/17 08:03; Start at 09:00 Vancomycin HCl/ Sodium Chloride (Vancomycin Inj/ NS 250 ml Inj) 262.5 ml @ 250 mls/hr Q18H IV Last administered on 01/08/17 17:21; Start 01/08/17 at 00:00 Miscellaneous Information SPECIFIC LAB TO BE DRAWN:VANCOMYCIN TROUGH DATE TO... ONCE ONCE .XX ; Start 01/09/17 at 11:45; Stop 01/09/17 at 11:46 Ketorolac Tromethamine (Toradol Inj) 15 mg Q8HR PRN IV PUSH BREAKTHROUGH PAIN Last administered on 01/08/17 06:19; Start 01/07/17 at 11:15; Stop 01/08/17 at 08:32; Status DC Acetaminophen/ Hydrocodone Bitart ([place] 5-325 Mg) 2 tab Q4H PRN PO PAIN>5 Last administered on 01/08/17 07:56; Start 01/07/17 at 14:15; Stop 01/08/17 at 08:32; Status DC Nicotine (Habitrol 21 Mg Patch.24 Hr) 1 patch DAILY T-DERMAL Last administered on 01/09/17 08:04; Start 01/07/17 at 16:00 Miscellaneous Information 1 1 HS T-DERMAL Last administered on 01/08/17 21:00 ; Start 01/07/17 at 21:00 Lactated Ringer's (Lr 1000 ml Inj) 1,000 ml @ 30 mls/hr Q24H PRN IV SEE LABEL COMMENTS; Start 01/08/17 at 05:45; Stop 01/11/17 at 05:44 Povidone Iodine (Betadine 5% Antisepsis Kit) 1 applic GED TUTOR PRN EACH NARE SEE LABEL COMMENTS; Start 01/08/17 at 05:45; Stop 01/11/17 at 05:44 Chlorhexidine Gluconate (Chlorhexidine 2% Cloth) 3 pack GED TUTOR PRN TOPICAL SEE LABEL COMMENTS; Start 01/08/17 at 05:45; Stop 01/11/17 at 05:44 Insulin Human Regular (NovoLIN R INJ) See Protocol Table ... GED TUTOR PRN SQ SEE PROTOCOL TABLE; Start 01/08/17 at 05:45; Stop 01/11/17 at 05:44 Acetaminophen/ Hydrocodone Bitart ([place] 10-325 Mg) 1 tab Q4H PRN PO PAIN <5; Start 01/08/17 at 09:00; Stop 01/08/17 at 10:55; Status DC Acetaminophen/ Hydrocodone Bitart ([place] 10-325 Mg) 2 tab Q4H PRN PO PAIN >5 Last administered on 01/08/17 23:34; Start 01/08/17 at 09:00 Hydromorphone HCl (Dilaudid Pf Inj) 0.5 mg Q3HR PRN IV PUSH BREAKTHROUGH PAIN Last administered on 01/08/17 09:10; Start 01/08/17 at 09:00; Stop 01/08/17 at 10:56; Status DC Bupivacaine HCl (Marcaine Pf 0.5% Inj) 30 ml STK-MED ONCE .ROUTE Last administered on 01/08/17 10:20; Start 01/08/17 at 09:17; Stop 01/08/17 at 09:18 ; Status DC Acetaminophen (Ofirmev Inj) 1,000 mg STK-MED ONCE IV ; Start 01/08/17 at 09:46; Stop 01/08/17 at 09:47; Status DC Midazolam HCl (Versed Inj) 5 mg STK-MED ONCE .ROUTE ; Start 01/08/17 at 09:47; Stop 01/08/17 at 09:48; Status DC Ketamine HCl (Ketalar Inj) 500 mg STK-MED ONCE .ROUTE ; Start 01/08/17 at 09:47 ; Stop 01/08/17 at 09:48; Status DC Hydromorphone HCl (Dilaudid Pf Inj) 2 mg STK-MED ONCE .ROUTE ; Start 01/08/17 at 09:47; Stop 01/08/17 at 09:48; Status DC Dexamethasone Sodium Phosphate (Decadron Inj) 4 mg STK-MED ONCE .ROUTE ; Start 01/08/17 at 09:47; Stop 01/08/17 at 09:48; Status DC Hydromorphone HCl (Dilaudid Pf Inj) 2 mg STK-MED ONCE .ROUTE ; Start 01/08/17 at 09:57; Stop 01/08/17 at 09:58; Status DC Sodium Chloride (NS Flush) 2 ml UNSCH PRN IV FLUSH FLUSH AFTER USING IV ACCESS ; Start 01/08/17 at 10:45 Sodium Chloride (NS Flush) 2 ml BID IV FLUSH Last administered on 01/09/17 01: 25; Start 01/08/17 at 21:00 Miscellaneous Information (Post-op Orders (for Pharmacy)) STAT ONCE XX ; Start 01/08/17 at 10:45; Stop 01/08/17 at 13:45; Status DC Hydromorphone HCl (Dilaudid Pf Inj) 1 mg Q3H PRN IV Pain 6-10;if unable to take PO Last administered on 01/08/17 15:59; Start 01/08/17 at 11:00 Acetaminophen (Ofirmev Inj) 1,000 mg Q6H IV Last administered on 01/09/17 05: 14; Start 01/08/17 at 11:00; Stop 01/09/17 at 05:01; Status DC Hydromorphone HCl (Dilaudid Pf Inj) 1 mg Q3H PRN IV BREAKTHROUGH PAIN Last administered on 01/09/17 05:15; Start 01/08/17 at 11:00 Hydromorphone HCl (Dilaudid) 1 mg Q4H PRN PO SEE LABEL COMMENTS Last administered on 01/09/17 07:28; Start 01/08/17 at 11:00 Naloxone HCl (Narcan Inj) 0.4 mg UNSCH PRN IV SEE LABEL COMMENTS; Start at 10:45 Midazolam HCl (Versed Inj) 2 mg STK-MED ONCE .ROUTE ; Start 01/08/17 at 10:50; Stop 01/08/17 at 10:51; Status DC Fentanyl Citrate (fentaNYL INJ) 500 mcg STK-MED ONCE .ROUTE ; Start 01/08/17 at 10:50; Stop 01/08/17 at 10:51; Status DC Hydromorphone HCl (*DILAUDID PF INJ PERIprocedural ONLY) 1 mg STK-MED ONCE .ROUTE Last administered on 01/08/17 11:02; Start 01/08/17 at 11:00; Stop at 11:01; Status DC Miscellaneous Information ALL NURSING DEPARTME... UNSCH PRN .XX SEE LABEL COMMENTS; Start 01/08/17 at 10:44; Stop 01/09/17 at 10:43 Hydromorphone HCl (Dilaudid Pf Inj) 0.5 mg ONCE ONCE IV ; Start 01/08/17 at 12: 00; Stop 01/08/17 at 13:45; Status DC Diphenhydramine HCl (Benadryl) 50 mg ONCE ONCE PO Last administered on 01:38; Start 01/08/17 at 23:15; Stop 01/08/17 at 23:16; Status DC A/P Assessment and Plan A/P - sepsis due to cellulitis/abscess of the left foot- failed outpatient treatment s/p I/D of the left foot abscess. continue with broad-spectrum IV antibiotics- follow the cultures- continue with pain control . podiatry following. -history of PTSD and TBI- resumed home meds -insomnia; restoril as needed. Discharge Planning dc home when cleared by podiatry. Josef Mcginnis MD Jan 09, 2017 08:16
[2017-01-09] MEDS ORDERED: HYDR-3583 PO (08:17)
[2017-01-09] MEDS ORDERED: TEMAZEPAM 7.5 MG CAP PO PRN (09:00)
--- NOTE | 2017-01-09 10:43 | PD.POD ---
Subjective Podiatric Problems 46-year-old patient with history of abscess dorsal aspect left foot. Pain scale used: 0-10 numeric scale Pain score: 6 Remarks 46-year-old patient with abscess of the left foot one day status post debridement of wound. He has a wound that measures 1.5 x 1.5 by approximately 0.4 cm. Necrotic tissue was sent for culture and sensitivity. Gram stain had no organisms. Patient complaining of pain. Past Med/Surg/Social History Past Medical History [facility] Reviewed: Yes Musculoskeletal: REPORTS HX OF: Fractures, Osteoarthritis Neurologic: REPORTS HX OF: Peripheral neuropathy, Other neurologic history ( pneumatic brain injury) Psychiatric: REPORTS HX OF: Anxiety, Other psychiatric history Past Surgical History Integumentary: REPORTS HX OF: Other integumentary surg Social History Tobacco screening performed: Yes Smoking Status: Current Every Day Smoker Review of Systems Constitutional: COMPLAINS OF: Good general health, DENIES: Recent weight change, Fever, Fatigue, Pain Eyes: DENIES: Blurred/Double vision, Hx eye disease Ears/Nose/Mouth/Throat: DENIES: Ringing in ears, Change in hearing, Deafness/ hearing aid, Sore throat, Trouble swallowing Cardiovascular: DENIES: Heart Disease, Hx CHF / chest pain, Hx hypertension, Hx phlebitis / clots, Swelling legs / ankles, Varicose veins, Hx Rheumatic Fever Respiratory: DENIES: Frequent colds, Difficulty breathing, Cough (productive?) , Asthma / hay fever, Emphysema, TB Gastrointestinal: DENIES: Heartburn, Vomiting, Constipation, Diarrhea, Black Stools, Blood in stools, Peptic ulcer, Abdominal pain Genitourinary: DENIES: Renal disease, Dialysis, Freq or burning urination, Blood in urine, Difficulty in urination, Incontinence Musculoskeletal: COMPLAINS OF: Joint pain/swell/dysarthr Integumentary: DENIES: Rash, Hx masses/lumps, Birthmrk/wart/lump/nodule, Slow to heal after cuts, Bleeding/bruising tendncy Neurological: DENIES: CVA/Stroke, Spinal Cord Injury, Seizures, Tremors, Numbness/tingling, Changes in sensation, Difficulty with balance Psychiatric: COMPLAINS OF: Depression/anxiety Endocrine: DENIES: Thyroid disease, Heat/cold intolerance, Excessive thirst Hematologic/Lymphatic: DENIES: Blood borne disease, Anemia, Blood abnormalities Allergic/Immunologic: DENIES: Rheumatoid Arthritis, Skin/Food/Drug reaction, Lupus, Sickle Cell disease, Scleroderma, Vasculitis Objective Vital Signs Vital Signs Date Time Temp Pulse Resp B/P Pulse Ox O2 Delivery O2 Flow Rate FiO2 01/09/17 08:00 96.7 73 20 130/80 98 01/09/17 00:00 97.7 73 18 118/64 96 01/09/17 00:00 97.7 73 18 118/64 96 01/08/17 21:27 97 01/08/17 20:00 97.5 79 20 123/75 97 01/08/17 16:19 97.2 85 18 129/88 98 01/08/17 12:31 95.4 62 18 134/90 97 01/08/17 11:15 97.7 63 10 107/78 100 Room Air 01/08/17 11:00 64 10 115/77 98 Room Air 01/08/17 10:44 97.7 68 10 116/67 98 Nasal Cannula 2 Coded Allergies: Vistaril (Verified Allergy, Intermediate, AGITATION, 01/07/17) Medications and IVs Current Medications Vancomycin HCl 1500 mg/Sodium Chloride 515 ml @ 257.5 mls/ hr ONCE ONCE IV Last administered on 01/07/17 06:37; Start 01/07/17 at 06:00; Stop 01/07/17 at 07:59; Status DC Sodium Chloride (NS 1000 ml Inj) 1,000 ml @ 999 mls/hr BOLUS ONCE IV Last administered on 01/07/17 06:50; Start 01/07/17 at 06:45; Stop 01/07/17 at 07:45 ; Status DC Sodium Chloride (NS Flush) 2 ml UNSCH PRN IV FLUSH FLUSH AFTER USING IV ACCESS Last administered on 01/08/17 06:20; Start 01/07/17 at 07:00 Sodium Chloride (NS Flush) 2 ml BID IV FLUSH Last administered on 01/09/17 08: 14; Start 01/07/17 at 09:00 Naloxone HCl 0.4 mg 0.4 mg UNSCH PRN IV SEE LABEL COMMENTS; Start 01/07/17 at 07:00; Stop 01/08/17 at 10:50; Status DC Pharmacy Profile Note 0 ml @ 0 mls/hr UNSCH OTHER ; Start 01/07/17 at 07:00 Piperacillin Sod/ Tazobactam Sod (Zosyn 4.5 Gm Premix) 100 ml @ 200 mls/hr Q6H IV Last administered on 01/09/17 10:02; Start 01/07/17 at 09:00 Acetaminophen (Tylenol) 650 mg Q4H PRN PO FEVER/PAIN < 5; Start 01/07/17 at 07: 45; Stop 01/08/17 at 08:32; Status DC Acetaminophen/ Hydrocodone Bitart ([place] 5-325 Mg) 1 tab Q4H PRN PO PAIN>5 Last administered on 01/07/17 08:06; Start 01/07/17 at 07:45; Stop 01/07/17 at 14:14; Status DC Alprazolam (Xanax) 1 mg Q6H PRN PO ANXIETY Last administered on 01/09/17 05:13 ; Start 01/07/17 at 07:45 Donepezil HCl (Aricept) 10 mg HS PO Last administered on 01/08/17 20:14; Start 01/07/17 at 21:00 Memantine 10 mg 10 mg BID PO Last administered on 01/09/17 08:03; Start at 09:00 Vancomycin HCl/ Sodium Chloride (Vancomycin Inj/ NS 250 ml Inj) 262.5 ml @ 250 mls/hr Q18H IV Last administered on 01/08/17 17:21; Start 01/08/17 at 00:00 Miscellaneous Information SPECIFIC LAB TO BE DRAWN:VANCOMYCIN TROUGH DATE TO... ONCE ONCE .XX ; Start 01/09/17 at 11:45; Stop 01/09/17 at 11:46 Ketorolac Tromethamine (Toradol Inj) 15 mg Q8HR PRN IV PUSH BREAKTHROUGH PAIN Last administered on 01/08/17 06:19; Start 01/07/17 at 11:15; Stop 01/08/17 at 08:32; Status DC Acetaminophen/ Hydrocodone Bitart ([place] 5-325 Mg) 2 tab Q4H PRN PO PAIN>5 Last administered on 01/08/17 07:56; Start 01/07/17 at 14:15; Stop 01/08/17 at 08:32; Status DC Nicotine (Habitrol 21 Mg Patch.24 Hr) 1 patch DAILY T-DERMAL Last administered on 01/09/17 08:04; Start 01/07/17 at 16:00 Miscellaneous Information 1 1 HS T-DERMAL Last administered on 01/08/17 21:00 ; Start 01/07/17 at 21:00 Lactated Ringer's (Lr 1000 ml Inj) 1,000 ml @ 30 mls/hr Q24H PRN IV SEE LABEL COMMENTS; Start 01/08/17 at 05:45; Stop 01/11/17 at 05:44 Povidone Iodine (Betadine 5% Antisepsis Kit) 1 applic [employer]IST PRN EACH NARE SEE LABEL COMMENTS; Start 01/08/17 at 05:45; Stop 01/11/17 at 05:44 Chlorhexidine Gluconate (Chlorhexidine 2% Cloth) 3 pack [employer] STRATE[employer]IST PRN TOPICAL SEE LABEL COMMENTS; Start 01/08/17 at 05:45; Stop 01/11/17 at 05:44 Insulin Human Regular (NovoLIN R INJ) See Protocol Table ... [employer] MARKETING STRATEGIST PRN SQ SEE PROTOCOL TABLE; Start 01/08/17 at 05:45; Stop 01/11/17 at 05:44 Acetaminophen/ Hydrocodone Bitart ([place] 10-325 Mg) 1 tab Q4H PRN PO PAIN <5; Start 01/08/17 at 09:00; Stop 01/08/17 at 10:55; Status DC Acetaminophen/ Hydrocodone Bitart ([place] 10-325 Mg) 2 tab Q4H PRN PO PAIN >5 Last administered on 01/08/17 23:34; Start 01/08/17 at 09:00 Hydromorphone HCl (Dilaudid Pf Inj) 0.5 mg Q3HR PRN IV PUSH BREAKTHROUGH PAIN Last administered on 01/08/17 09:10; Start 01/08/17 at 09:00; Stop 01/08/17 at 10:56; Status DC Bupivacaine HCl (Marcaine Pf 0.5% Inj) 30 ml STK-MED ONCE .ROUTE Last administered on 01/08/17 10:20; Start 01/08/17 at 09:17; Stop 01/08/17 at 09:18 ; Status DC Acetaminophen (Ofirmev Inj) 1,000 mg STK-MED ONCE IV ; Start 01/08/17 at 09:46; Stop 01/08/17 at 09:47; Status DC Midazolam HCl (Versed Inj) 5 mg STK-MED ONCE .ROUTE ; Start 01/08/17 at 09:47; Stop 01/08/17 at 09:48; Status DC Ketamine HCl (Ketalar Inj) 500 mg STK-MED ONCE .ROUTE ; Start 01/08/17 at 09:47 ; Stop 01/08/17 at 09:48; Status DC Hydromorphone HCl (Dilaudid Pf Inj) 2 mg STK-MED ONCE .ROUTE ; Start 01/08/17 at 09:47; Stop 01/08/17 at 09:48; Status DC Dexamethasone Sodium Phosphate (Decadron Inj) 4 mg STK-MED ONCE .ROUTE ; Start 01/08/17 at 09:47; Stop 01/08/17 at 09:48; Status DC Hydromorphone HCl (Dilaudid Pf Inj) 2 mg STK-MED ONCE .ROUTE ; Start 01/08/17 at 09:57; Stop 01/08/17 at 09:58; Status DC Sodium Chloride (NS Flush) 2 ml UNSCH PRN IV FLUSH FLUSH AFTER USING IV ACCESS ; Start 01/08/17 at 10:45 Sodium Chloride (NS Flush) 2 ml BID IV FLUSH Last administered on 01/09/17 09: 00; Start 01/08/17 at 21:00 Miscellaneous Information (Post-op Orders (for Pharmacy)) STAT ONCE XX ; Start 01/08/17 at 10:45; Stop 01/08/17 at 13:45; Status DC Hydromorphone HCl (Dilaudid Pf Inj) 1 mg Q3H PRN IV Pain 6-10;if unable to take PO Last administered on 01/08/17 15:59; Start 01/08/17 at 11:00 Acetaminophen (Ofirmev Inj) 1,000 mg Q6H IV Last administered on 01/09/17 05: 14; Start 01/08/17 at 11:00; Stop 01/09/17 at 05:01; Status DC Hydromorphone HCl (Dilaudid Pf Inj) 1 mg Q3H PRN IV BREAKTHROUGH PAIN Last administered on 01/09/17 08:19; Start 01/08/17 at 11:00 Hydromorphone HCl (Dilaudid) 1 mg Q4H PRN PO SEE LABEL COMMENTS Last administered on 01/09/17 07:28; Start 01/08/17 at 11:00 Naloxone HCl (Narcan Inj) 0.4 mg UNSCH PRN IV SEE LABEL COMMENTS; Start at 10:45 Midazolam HCl (Versed Inj) 2 mg STK-MED ONCE .ROUTE ; Start 01/08/17 at 10:50; Stop 01/08/17 at 10:51; Status DC Fentanyl Citrate (fentaNYL INJ) 500 mcg STK-MED ONCE .ROUTE ; Start 01/08/17 at 10:50; Stop 01/08/17 at 10:51; Status DC Hydromorphone HCl (*DILAUDID PF INJ PERIprocedural ONLY) 1 mg STK-MED ONCE .ROUTE Last administered on 01/08/17 11:02; Start 01/08/17 at 11:00; Stop at 11:01; Status DC Miscellaneous Information ALL NURSING DEPARTME... UNSCH PRN .XX SEE LABEL COMMENTS; Start 01/08/17 at 10:44; Stop 01/09/17 at 10:43 Hydromorphone HCl (Dilaudid Pf Inj) 0.5 mg ONCE ONCE IV ; Start 01/08/17 at 12: 00; Stop 01/08/17 at 13:45; Status DC Diphenhydramine HCl (Benadryl) 50 mg ONCE ONCE PO Last administered on 01:38; Start 01/08/17 at 23:15; Stop 01/08/17 at 23:16; Status DC Temazepam (Restoril) 7.5 mg HS PRN PO INSOMNIA; Start 01/09/17 at 09:00 Other Results Laboratory Tests Test 01/08/17 09:14 White Blood Count 6.7 TH/MM3 Red Blood Count 4.58 MIL/MM3 Hemoglobin 13.7 GM/DL Hematocrit 41.1 % Mean Corpuscular Volume 89.7 FL Mean Corpuscular Hemoglobin 29.9 PG Mean Corpuscular Hemoglobin 33.3 % Concent Red Cell Distribution Width 14.6 % Platelet Count 189 TH/MM3 Mean Platelet Volume 8.8 FL Neutrophils (%) (Auto) 50.7 % Lymphocytes (%) (Auto) 36.7 % Monocytes (%) (Auto) 9.6 % Eosinophils (%) (Auto) 2.1 % Basophils (%) (Auto) 0.9 % Neutrophils # (Auto) 3.4 TH/MM3 Lymphocytes # (Auto) 2.5 TH/MM3 Monocytes # (Auto) 0.6 TH/MM3 Eosinophils # (Auto) 0.1 TH/MM3 Basophils # (Auto) 0.1 TH/MM3 CBC Comment DIFF FINAL Differential Comment Hematology Comments Laboratory Tests Test 01/08/17 09:14 Sodium Level 142 MEQ/L Potassium Level 5.0 MEQ/L Chloride Level 112 MEQ/L Carbon Dioxide Level 23.7 MEQ/L Anion Gap 6 MEQ/L Blood Urea Nitrogen 16 MG/DL Creatinine 0.90 MG/DL Estimat Glomerular Filtration 91 ML/MIN Rate Random Glucose 76 MG/DL Calcium Level 8.1 MG/DL Microbiology Date/Time Procedure Status Source Growth 01/07/17 06:00 Gram Stain - Final Resulted Wound Foot 01/07/17 06:00 Wound Culture - Preliminary Resulted Wound Foot 01/08/17 10:25 Gram Stain - Final Resulted Wound Foot 01/08/17 10:25 Wound Culture Resulted Wound Foot Pending 01/08/17 10:25 Fungal Smear - Final Resulted Wound Foot NO FUNGAL ELEMENTS SEEN. 01/08/17 10:25 Fungal Culture Resulted Wound Foot Pending Exam-Podiatry Constitutional General appearance: comfortable Nutritional status: normal Orientation: alert and oriented x3 Dermatological Exam Skin Temp - Right: Within Normal Limits Skin Texture - Right: Within Normal Limits Skin Elasticity - Right: Within Normal Limits Skin Tugor - Right: Within Normal Limits Hair Growth - Right: Within Normal Limits Pigmentation - Right: Within Normal Limits Skin Temp - Left: Within Normal Limits Skin Texture - Left: Within Normal Limits Skin Elasticity - Left: Within Normal Limits Skin Tugor - Left: Within Normal Limits Hair Growth - Left: Within Normal Limits Pigmentation - Left: Within Normal Limits Ulcers: Location/Measurements Dorsal defect left foot measuring 1.5 cm x 1.5 cm x 0.4 cm deep. Dressing dry and intact. Vascular/Lymphatic Exam R Dorsails Pedis: Palpable L Dorsails Pedis: Palpable R Posterior Tibial: Palpable L Posterior Tibial: Palpable Neurologic Exam Details No neurological deficits seen Muscle Strength Dorsiflexion (Right): Normal Plantarflexion (Right): Normal Inversion (Right): Normal Eversion (Right): Normal Digital (Right): Normal Dorsiflexion (Left): Normal Plantarflexion (Left): Normal Inversion (Left): Normal Eversion (Left): Normal Digital (Left): Normal Foot Range of Motion Dorsiflexion (Right): Normal Plantarflexion (Right): Normal Inversion (Right): Normal Eversion (Right): Normal Digital (Right): Normal Dorsiflexion (Left): Normal Plantarflexion (Left): Normal Inversion (Left): Normal Eversion (Left): Normal Digital (Left): Normal Assessment & Plan Diagnosis: (1) Cellulitis Status: Acute (2) Abscess of foot without toes, left Status: Resolved A/P PLAN: Await culture and sensitivity. We'll change his dressing tomorrow. Patient can follow-up in the wound Center after discharge. Continue to follow. Problem Qualifiers (1) Cellulitis: Qualified Code: L03.116 - Cellulitis of left lower extremity Britton Mondragon DPM Jan 09, 2017 10:43
[2017-01-09] MEDS ORDERED: PHARMACY ORDERED LAB ONE (11:45)
[2017-01-09 11:51] VITALS: BP 131/84; PULSE 70; RESP 18; TEMP 97.1; O2SAT 98
[2017-01-09] MEDS: VANCOMYCIN INJ 1,250 MG in SODIUM CHLOR 0.9% 250 ML INJ 250 ML IV SCH (12:06)
[2017-01-09 16:00] VITALS: BP 142/83; PULSE 74; RESP 20; TEMP 97.3; O2SAT 97
[2017-01-09 20:00] VITALS: BP 137/86; PULSE 74; RESP 20; TEMP 97.7; O2SAT 98
[2017-01-09] MEDS: DONEPEZIL HCL 5 MG TAB PO SCH (20:46)
[2017-01-09] MEDS: REMOVE OLD NICODERM (NICOTINE) PATCH T-DERMAL SCH (21:00)
[2017-01-09 21:08] VITALS: O2SAT 98
[2017-01-10] VITALS (8 sets, daily range): BP systolic 127–156; BP diastolic 75–93; PULSE 49–71; RESP 18–20; TEMP 97–97.7; O2SAT 96–100
[2017-01-10] MEDS: VANCOMYCIN INJ 1,750 MG in SODIUM CHLORID 0.9% 500 ML INJ 500 ML IV SCH ×3 (00:45→23:52)
[2017-01-10] MEDS: HYDROmorphone HCL PF 1 MG/ML VIAL IV PRN ×6 (00:46→20:47)
[2017-01-10] MEDS: HYDROmorphone HCL 2 MG TAB PO PRN ×6 (00:46→23:49)
[2017-01-10] MEDS: ALPRAZolam 1 MG TAB PO PRN ×4 (00:46→17:18)
[2017-01-10] MEDS: PIPERACIL-TAZO 4.5 GM PREMIX 100 ML IV SCH ×4 (02:59→20:46)
[2017-01-10] MEDS: MEMANTINE HCL 10 MG TAB PO SCH ×2 (08:07→20:46)
[2017-01-10] MEDS: NICOTINE 21 MG/24 HR PATCH T-DERMAL SCH (08:08)
--- NOTE | 2017-01-10 08:14 | HHI.PR ---
Subjective Remarks resting comfortably with no distress. no fever. although looks fairly comfortable, complaining of pain to the left foot. Objective Vitals Vital Signs Date Time Temp Pulse Resp B/P Pulse Ox O2 Delivery O2 Flow Rate FiO2 01/10/17 04:00 97.0 57 20 131/87 97 01/10/17 00:00 97.1 71 20 133/80 96 01/09/17 21:08 98 21 01/09/17 20:00 97.7 74 20 137/86 98 01/09/17 16:00 97.3 74 20 142/83 97 01/09/17 11:51 97.1 70 18 131/84 98 01/09/17 09:00 12 I/O 01/09/17 01/09/17 01/09/17 01/10/17 01/10/17 01/10/17 07:00 15:00 23:00 07:00 15:00 23:00 Intake Total 480 ml Balance 480 ml Intake Oral 480 ml # Voids 3 2 1 # Bowel Movements 2 0 Result Diagram: 01/08/1714 01/08/1714 Imaging Last Impressions Foot X-Ray 01/07/17 0000 Signed Impressions: Service Date/Time: December 05:59 - CONCLUSION: Unremarkable study. KJasiel Parmar MD Chest X-Ray 01/07/17 0000 Signed Impressions: Service Date/Time: December 12:54 - CONCLUSION: 1. No acute cardiopulmonary findings. Steve Connors MD Objective Remarks GENERAL: This is a well-nourished, well-developed patient, in no apparent distress. CARDIOVASCULAR: Regular rate and regular rhythm without murmurs, gallops, or rubs. RESPIRATORY: Clear to auscultation. Breath sounds equal bilaterally. No wheezes , rales, or rhonchi. GASTROINTESTINAL: Abdomen soft, non-tender, nondistended. Normal, active bowel sounds MUSCULOSKELETAL: left foot covered with clean dressing. NEURO: Alert & Oriented x4 to person, place, time, situation. Moves all ext x4 Procedures I/D of the left foot abscess. Medications and IVs Current Medications Vancomycin HCl 1500 mg/Sodium Chloride 515 ml @ 257.5 mls/ hr ONCE ONCE IV Last administered on 01/07/17t 06:37; Start 01/07/17 at 06:00; Stop 01/07/17 at 07:59; Status DC Sodium Chloride (NS 1000 ml Inj) 1,000 ml @ 999 mls/hr BOLUS ONCE IV Last administered on 01/07/17 06:50; Start 01/07/17 at 06:45; Stop 01/07/17 at 07:45 ; Status DC Sodium Chloride (NS Flush) 2 ml UNSCH PRN IV FLUSH FLUSH AFTER USING IV ACCESS Last administered on 01/08/17 06:20; Start 01/07/17 at 07:00 Sodium Chloride (NS Flush) 2 ml BID IV FLUSH Last administered on 01/09/17 20: 36; Start 01/07/17 at 09:00 Naloxone HCl 0.4 mg 0.4 mg UNSCH PRN IV SEE LABEL COMMENTS; Start 01/07/17 at 07:00; Stop 01/08/17 at 10:50; Status DC Pharmacy Profile Note 0 ml @ 0 mls/hr UNSCH OTHER ; Start 01/07/17 at 07:00 Piperacillin Sod/ Tazobactam Sod (Zosyn 4.5 Gm Premix) 100 ml @ 200 mls/hr Q6H IV Last administered on 01/10/17 02:59; Start 01/07/17 at 09:00 Acetaminophen (Tylenol) 650 mg Q4H PRN PO FEVER/PAIN < 5; Start 01/07/17 at 07: 45; Stop 01/08/17 at 08:32; Status DC Acetaminophen/ Hydrocodone Bitart ([place] 5-325 Mg) 1 tab Q4H PRN PO PAIN>5 Last administered on 01/07/17 08:06; Start 01/07/17 at 07:45; Stop 01/07/17 at 14:14; Status DC Alprazolam (Xanax) 1 mg Q6H PRN PO ANXIETY Last administered on 01/10/17 02:27 ; Start 01/07/17 at 07:45 Donepezil HCl (Aricept) 10 mg HS PO Last administered on 01/09/17 20:46; Start 01/07/17 at 21:00 Memantine 10 mg 10 mg BID PO Last administered on 01/09/17 20:47; Start at 09:00 Vancomycin HCl/ Sodium Chloride (Vancomycin Inj/ NS 250 ml Inj) 262.5 ml @ 250 mls/hr Q18H IV Last administered on 01/09/17 12:06; Start 01/08/17 at 00:00; Stop 01/09/17 at 13:48; Status DC Miscellaneous Information SPECIFIC LAB TO BE DRAWN:VANCOMYCIN TROUGH DATE TO... ONCE ONCE .XX Last administered on 01/09/17 11:45; Start 01/09/17 at 11:45; Stop 01/09/17 at 11:46; Status DC Ketorolac Tromethamine (Toradol Inj) 15 mg Q8HR PRN IV PUSH BREAKTHROUGH PAIN Last administered on 01/08/17 06:19; Start 01/07/17 at 11:15; Stop 01/08/17 at 08:32; Status DC Acetaminophen/ Hydrocodone Bitart ([place] 5-325 Mg) 2 tab Q4H PRN PO PAIN>5 Last administered on 01/08/17 07:56; Start 01/07/17 at 14:15; Stop 01/08/17 at 08:32; Status DC Nicotine (Habitrol 21 Mg Patch.24 Hr) 1 patch DAILY T-DERMAL Last administered on 01/09/17 08:04; Start 01/07/17 at 16:00 Miscellaneous Information 1 1 HS T-DERMAL Last administered on 01/09/17 21:00 ; Start 01/07/17 at 21:00 Lactated Ringer's (Lr 1000 ml Inj) 1,000 ml @ 30 mls/hr Q24H PRN IV SEE LABEL COMMENTS; Start 01/08/17 at 05:45; Stop 01/11/17 at 05:44 Povidone Iodine (Betadine 5% Antisepsis Kit) 1 applic FOUN[employer]ORER COREROOM PRN EACH NARE SEE LABEL COMMENTS; Start 01/08/17 at 05:45; Stop 01/11/17 at 05:44 Chlorhexidine Gluconate (Chlorhexidine 2% Cloth) 3 pack [employer]OUN[employer]OR[employer] PRN TOPICAL SEE LABEL COMMENTS; Start 01/08/17 at 05:45; Stop 01/11/17 at 05:44 Insulin Human Regular (NovoLIN R INJ) See Protocol Table ... FOUNDRY [employer]ORER COREROOM PRN SQ SEE PROTOCOL TABLE; Start 01/08/17 at 05:45; Stop 01/11/17 at 05:44 Acetaminophen/ Hydrocodone Bitart ([place] 10-325 Mg) 1 tab Q4H PRN PO PAIN <5; Start 01/08/17 at 09:00; Stop 01/08/17 at 10:55; Status DC Acetaminophen/ Hydrocodone Bitart ([place] 10-325 Mg) 2 tab Q4H PRN PO PAIN >5 Last administered on 01/08/17 23:34; Start 01/08/17 at 09:00; Stop 01/09/17 at 14:19; Status DC Hydromorphone HCl (Dilaudid Pf Inj) 0.5 mg Q3HR PRN IV PUSH BREAKTHROUGH PAIN Last administered on 01/08/17 09:10; Start 01/08/17 at 09:00; Stop 01/08/17 at 10:56; Status DC Bupivacaine HCl (Marcaine Pf 0.5% Inj) 30 ml STK-MED ONCE .ROUTE Last administered on 01/08/17 10:20; Start 01/08/17 at 09:17; Stop 01/08/17 at 09:18 ; Status DC Acetaminophen (Ofirmev Inj) 1,000 mg STK-MED ONCE IV ; Start 01/08/17 at 09:46; Stop 01/08/17 at 09:47; Status DC Midazolam HCl (Versed Inj) 5 mg STK-MED ONCE .ROUTE ; Start 01/08/17 at 09:47; Stop 01/08/17 at 09:48; Status DC Ketamine HCl (Ketalar Inj) 500 mg STK-MED ONCE .ROUTE ; Start 01/08/17 at 09:47 ; Stop 01/08/17 at 09:48; Status DC Hydromorphone HCl (Dilaudid Pf Inj) 2 mg STK-MED ONCE .ROUTE ; Start 01/08/17 at 09:47; Stop 01/08/17 at 09:48; Status DC Dexamethasone Sodium Phosphate (Decadron Inj) 4 mg STK-MED ONCE .ROUTE ; Start 01/08/17 at 09:47; Stop 01/08/17 at 09:48; Status DC Hydromorphone HCl (Dilaudid Pf Inj) 2 mg STK-MED ONCE .ROUTE ; Start 01/08/17 at 09:57; Stop 01/08/17 at 09:58; Status DC Sodium Chloride (NS Flush) 2 ml UNSCH PRN IV FLUSH FLUSH AFTER USING IV ACCESS ; Start 01/08/17 at 10:45 Sodium Chloride (NS Flush) 2 ml BID IV FLUSH Last administered on 01/09/17 09: 00; Start 01/08/17 at 21:00 Miscellaneous Information (Post-op Orders (for Pharmacy)) STAT ONCE XX ; Start 01/08/17 at 10:45; Stop 01/08/17 at 13:45; Status DC Hydromorphone HCl (Dilaudid Pf Inj) 1 mg Q3H PRN IV Pain 6-10;if unable to take PO Last administered on 01/10/17 04:14; Start 01/08/17 at 11:00 Acetaminophen (Ofirmev Inj) 1,000 mg Q6H IV Last administered on 01/09/17 05: 14; Start 01/08/17 at 11:00; Stop 01/09/17 at 05:01; Status DC Hydromorphone HCl (Dilaudid Pf Inj) 1 mg Q3H PRN IV BREAKTHROUGH PAIN Last administered on 01/09/17 08:19; Start 01/08/17 at 11:00 Hydromorphone HCl (Dilaudid) 1 mg Q4H PRN PO SEE LABEL COMMENTS Last administered on 01/09/17 07:28; Start 01/08/17 at 11:00; Stop 01/09/17 at 14:16 ; Status DC Naloxone HCl (Narcan Inj) 0.4 mg UNSCH PRN IV SEE LABEL COMMENTS; Start at 10:45 Midazolam HCl (Versed Inj) 2 mg STK-MED ONCE .ROUTE ; Start 01/08/17 at 10:50; Stop 01/08/17 at 10:51; Status DC Fentanyl Citrate (fentaNYL INJ) 500 mcg STK-MED ONCE .ROUTE ; Start 01/08/17 at 10:50; Stop 01/08/17 at 10:51; Status DC Hydromorphone HCl (*DILAUDID PF INJ PERIprocedural ONLY) 1 mg STK-MED ONCE .ROUTE Last administered on 01/08/17 11:02; Start 01/08/17 at 11:00; Stop at 11:01; Status DC Miscellaneous Information ALL NURSING DEPARTME... UNSCH PRN .XX SEE LABEL COMMENTS; Start 01/08/17 at 10:44; Stop 01/09/17 at 10:43; Status DC Hydromorphone HCl (Dilaudid Pf Inj) 0.5 mg ONCE ONCE IV ; Start 01/08/17 at 12: 00; Stop 01/08/17 at 13:45; Status DC Diphenhydramine HCl (Benadryl) 50 mg ONCE ONCE PO Last administered on 01:38; Start 01/08/17 at 23:15; Stop 01/08/17 at 23:16; Status DC Temazepam 7.5 mg 7.5 mg HS PRN PO INSOMNIA Last administered on 01/09/17 22:33 ; Start 01/09/17 at 09:00 Vancomycin HCl/ Sodium Chloride (Vancomycin Inj/ NS 500 ml Inj) 517.5 ml @ 250 mls/hr Q12H IV Last administered on 01/10/17 00:45; Start 01/10/17 at 00:00 Miscellaneous Information SPECIFIC LAB TO BE DRAWN:VANCO TROUGH DATE TO... ONCE ONCE .XX ; Start 01/11/17 at 11:45; Stop 01/11/17 at 11:46 Hydromorphone HCl (Dilaudid) 2 mg Q4H PRN PO PAIN 6-10 Last administered on 05:24; Start 01/09/17 at 15:00 A/P Assessment and Plan A/P - sepsis due to cellulitis/abscess of the left foot- failed outpatient treatment s/p I/D of the left foot abscess. continue with broad-spectrum IV antibiotics- follow the cultures- continue with pain control . podiatry following. -history of PTSD and TBI- resumed home meds -insomnia; restoril as needed. Discharge Planning dc home when cleared by podiatry- awaiting the wound culture result. Josef Mcginnis MD Jan 10, 2017 08:14
[2017-01-10] MEDS: SODIUM CHLORIDE 0.9% FLUSH 10 ML FLUSH IV FLUSH SCH ×4 (09:00→20:48)
--- NOTE | 2017-01-10 10:02 | PD.POD ---
Subjective Podiatric Problems 46-year-old patient with history of abscess dorsal aspect left foot. Pain scale used: 0-10 numeric scale Pain score: 6 Remarks 46-year-old patient with abscess of the left foot 2 days status post debridement of wound. He has a wound that measures 1.5 x 1.5 by approximately 0.4 cm. Necrotic tissue was sent for culture and sensitivity. Preop culture is growing strep. Interop tissue culture is pending.. Patient complaining of pain. Past Med/Surg/Social History Past Medical History [facility] Reviewed: Yes Musculoskeletal: REPORTS HX OF: Fractures, Osteoarthritis Neurologic: REPORTS HX OF: Peripheral neuropathy, Other neurologic history ( pneumatic brain injury) Psychiatric: REPORTS HX OF: Anxiety, Other psychiatric history Past Surgical History Integumentary: REPORTS HX OF: Other integumentary surg Social History Tobacco screening performed: Yes Smoking Status: Current Every Day Smoker Review of Systems Notes No changes in the patient's 14 point review of systems exam from the previous visit Objective Vital Signs Vital Signs Date Time Temp Pulse Resp B/P Pulse Ox O2 Delivery O2 Flow Rate FiO2 01/10/17 08:00 97.0 59 20 130/86 100 01/10/17 04:00 97.0 57 20 131/87 97 01/10/17 00:00 97.1 71 20 133/80 96 01/09/17 21:08 98 21 01/09/17 20:00 97.7 74 20 137/86 98 01/09/17 16:00 97.3 74 20 142/83 97 01/09/17 11:51 97.1 70 18 131/84 98 Coded Allergies: Vistaril (Verified Allergy, Intermediate, AGITATION, 01/07/17) Medications and IVs Current Medications Vancomycin HCl 1500 mg/Sodium Chloride 515 ml @ 257.5 mls/ hr ONCE ONCE IV Last administered on 01/07/17 06:37; Start 01/07/17 at 06:00; Stop 01/07/17 at 07:59; Status DC Sodium Chloride (NS 1000 ml Inj) 1,000 ml @ 999 mls/hr BOLUS ONCE IV Last administered on 01/07/17 06:50; Start 01/07/17 at 06:45; Stop 01/07/17 at 07:45 ; Status DC Sodium Chloride (NS Flush) 2 ml UNSCH PRN IV FLUSH FLUSH AFTER USING IV ACCESS Last administered on 01/08/17 06:20; Start 01/07/17 at 07:00 Sodium Chloride (NS Flush) 2 ml BID IV FLUSH Last administered on 01/09/17 20: 36; Start 01/07/17 at 09:00 Naloxone HCl 0.4 mg 0.4 mg UNSCH PRN IV SEE LABEL COMMENTS; Start 01/07/17 at 07:00; Stop 01/08/17 at 10:50; Status DC Pharmacy Profile Note 0 ml @ 0 mls/hr UNSCH OTHER ; Start 01/07/17 at 07:00 Piperacillin Sod/ Tazobactam Sod (Zosyn 4.5 Gm Premix) 100 ml @ 200 mls/hr Q6H IV Last administered on 01/10/17 07:55; Start 01/07/17 at 09:00 Acetaminophen (Tylenol) 650 mg Q4H PRN PO FEVER/PAIN < 5; Start 01/07/17 at 07: 45; Stop 01/08/17 at 08:32; Status DC Acetaminophen/ Hydrocodone Bitart ([place] 5-325 Mg) 1 tab Q4H PRN PO PAIN>5 Last administered on 01/07/17 08:06; Start 01/07/17 at 07:45; Stop 01/07/17 at 14:14; Status DC Alprazolam (Xanax) 1 mg Q6H PRN PO ANXIETY Last administered on 01/10/17 08:07 ; Start 01/07/17 at 07:45 Donepezil HCl (Aricept) 10 mg HS PO Last administered on 01/09/17 20:46; Start 01/07/17 at 21:00 Memantine 10 mg 10 mg BID PO Last administered on 01/10/17 08:07; Start at 09:00 Vancomycin HCl/ Sodium Chloride (Vancomycin Inj/ NS 250 ml Inj) 262.5 ml @ 250 mls/hr Q18H IV Last administered on 01/09/17 12:06; Start 01/08/17 at 00:00; Stop 01/09/17 at 13:48; Status DC Miscellaneous Information SPECIFIC LAB TO BE DRAWN:VANCOMYCIN TROUGH DATE TO... ONCE ONCE .XX Last administered on 01/09/17 11:45; Start 01/09/17 at 11:45; Stop 01/09/17 at 11:46; Status DC Ketorolac Tromethamine (Toradol Inj) 15 mg Q8HR PRN IV PUSH BREAKTHROUGH PAIN Last administered on 01/08/17 06:19; Start 01/07/17 at 11:15; Stop 01/08/17 at 08:32; Status DC Acetaminophen/ Hydrocodone Bitart ([place] 5-325 Mg) 2 tab Q4H PRN PO PAIN>5 Last administered on 01/08/17 07:56; Start 01/07/17 at 14:15; Stop 01/08/17 at 08:32; Status DC Nicotine (Habitrol 21 Mg Patch.24 Hr) 1 patch DAILY T-DERMAL Last administered on 01/10/17 08:08; Start 01/07/17 at 16:00 Miscellaneous Information 1 1 HS T-DERMAL Last administered on 01/09/17 21:00 ; Start 01/07/17 at 21:00 Lactated Ringer's (Lr 1000 ml Inj) 1,000 ml @ 30 mls/hr Q24H PRN IV SEE LABEL COMMENTS; Start 01/08/17 at 05:45; Stop 01/11/17 at 05:44 Povidone Iodine (Betadine 5% Antisepsis Kit) 1 applic AUTOMOTIVE MACHINIST APPRENTICE PRN EACH NARE SEE LABEL COMMENTS; Start 01/08/17 at 05:45; Stop 01/11/17 at 05:44 Chlorhexidine Gluconate (Chlorhexidine 2% Cloth) 3 pack AUTOMOTIVE MACHINIST APPRENTICE PRN TOPICAL SEE LABEL COMMENTS; Start 01/08/17 at 05:45; Stop 01/11/17 at 05:44 Insulin Human Regular (NovoLIN R INJ) See Protocol Table ... AUTOMOTIVE MACHINIST APPRENTICE PRN SQ SEE PROTOCOL TABLE; Start 01/08/17 at 05:45; Stop 01/11/17 at 05:44 Acetaminophen/ Hydrocodone Bitart ([place] 10-325 Mg) 1 tab Q4H PRN PO PAIN <5; Start 01/08/17 at 09:00; Stop 01/08/17 at 10:55; Status DC Acetaminophen/ Hydrocodone Bitart ([place] 10-325 Mg) 2 tab Q4H PRN PO PAIN >5 Last administered on 01/08/17 23:34; Start 01/08/17 at 09:00; Stop 01/09/17 at 14:19; Status DC Hydromorphone HCl (Dilaudid Pf Inj) 0.5 mg Q3HR PRN IV PUSH BREAKTHROUGH PAIN Last administered on 01/08/17 09:10; Start 01/08/17 at 09:00; Stop 01/08/17 at 10:56; Status DC Bupivacaine HCl (Marcaine Pf 0.5% Inj) 30 ml STK-MED ONCE .ROUTE Last administered on 01/08/17 10:20; Start 01/08/17 at 09:17; Stop 01/08/17 at 09:18 ; Status DC Acetaminophen (Ofirmev Inj) 1,000 mg STK-MED ONCE IV ; Start 01/08/17 at 09:46; Stop 01/08/17 at 09:47; Status DC Midazolam HCl (Versed Inj) 5 mg STK-MED ONCE .ROUTE ; Start 01/08/17 at 09:47; Stop 01/08/17 at 09:48; Status DC Ketamine HCl (Ketalar Inj) 500 mg STK-MED ONCE .ROUTE ; Start 01/08/17 at 09:47 ; Stop 01/08/17 at 09:48; Status DC Hydromorphone HCl (Dilaudid Pf Inj) 2 mg STK-MED ONCE .ROUTE ; Start 01/08/17 at 09:47; Stop 01/08/17 at 09:48; Status DC Dexamethasone Sodium Phosphate (Decadron Inj) 4 mg STK-MED ONCE .ROUTE ; Start 01/08/17 at 09:47; Stop 01/08/17 at 09:48; Status DC Hydromorphone HCl (Dilaudid Pf Inj) 2 mg STK-MED ONCE .ROUTE ; Start 01/08/17 at 09:57; Stop 01/08/17 at 09:58; Status DC Sodium Chloride (NS Flush) 2 ml UNSCH PRN IV FLUSH FLUSH AFTER USING IV ACCESS ; Start 01/08/17 at 10:45 Sodium Chloride (NS Flush) 2 ml BID IV FLUSH Last administered on 01/09/17 09: 00; Start 01/08/17 at 21:00 Miscellaneous Information (Post-op Orders (for Pharmacy)) STAT ONCE XX ; Start 01/08/17 at 10:45; Stop 01/08/17 at 13:45; Status DC Hydromorphone HCl (Dilaudid Pf Inj) 1 mg Q3H PRN IV Pain 6-10;if unable to take PO Last administered on 01/10/17 07:54; Start 01/08/17 at 11:00 Acetaminophen (Ofirmev Inj) 1,000 mg Q6H IV Last administered on 01/09/17 05: 14; Start 01/08/17 at 11:00; Stop 01/09/17 at 05:01; Status DC Hydromorphone HCl (Dilaudid Pf Inj) 1 mg Q3H PRN IV BREAKTHROUGH PAIN Last administered on 01/09/17 08:19; Start 01/08/17 at 11:00 Hydromorphone HCl (Dilaudid) 1 mg Q4H PRN PO SEE LABEL COMMENTS Last administered on 01/09/17 07:28; Start 01/08/17 at 11:00; Stop 01/09/17 at 14:16 ; Status DC Naloxone HCl (Narcan Inj) 0.4 mg UNSCH PRN IV SEE LABEL COMMENTS; Start at 10:45 Midazolam HCl (Versed Inj) 2 mg STK-MED ONCE .ROUTE ; Start 01/08/17 at 10:50; Stop 01/08/17 at 10:51; Status DC Fentanyl Citrate (fentaNYL INJ) 500 mcg STK-MED ONCE .ROUTE ; Start 01/08/17 at 10:50; Stop 01/08/17 at 10:51; Status DC Hydromorphone HCl (*DILAUDID PF INJ PERIprocedural ONLY) 1 mg STK-MED ONCE .ROUTE Last administered on 01/08/17 11:02; Start 01/08/17 at 11:00; Stop at 11:01; Status DC Miscellaneous Information ALL NURSING DEPARTME... UNSCH PRN .XX SEE LABEL COMMENTS; Start 01/08/17 at 10:44; Stop 01/09/17 at 10:43; Status DC Hydromorphone HCl (Dilaudid Pf Inj) 0.5 mg ONCE ONCE IV ; Start 01/08/17 at 12: 00; Stop 01/08/17 at 13:45; Status DC Diphenhydramine HCl (Benadryl) 50 mg ONCE ONCE PO Last administered on 01:38; Start 01/08/17 at 23:15; Stop 01/08/17 at 23:16; Status DC Temazepam 7.5 mg 7.5 mg HS PRN PO INSOMNIA Last administered on 01/09/17 22:33 ; Start 01/09/17 at 09:00 Vancomycin HCl/ Sodium Chloride (Vancomycin Inj/ NS 500 ml Inj) 517.5 ml @ 250 mls/hr Q12H IV Last administered on 01/10/17 00:45; Start 01/10/17 at 00:00 Miscellaneous Information SPECIFIC LAB TO BE DRAWN:VANCO TROUGH DATE TO... ONCE ONCE .XX ; Start 01/11/17 at 11:45; Stop 01/11/17 at 11:46 Hydromorphone HCl (Dilaudid) 2 mg Q4H PRN PO PAIN 6-10 Last administered on 05:24; Start 01/09/17 at 15:00 Other Results Microbiology Date/Time Procedure Status Source Growth 01/08/17 10:25 Gram Stain - Final Resulted Wound Foot 01/08/17 10:25 Wound Culture - Preliminary Resulted Wound Foot 01/08/17 10:25 Fungal Smear - Final Resulted Wound Foot NO FUNGAL ELEMENTS SEEN. 01/08/17 10:25 Fungal Culture Resulted Wound Foot Pending Exam-Podiatry Constitutional General appearance: comfortable Nutritional status: normal Orientation: alert and oriented x3 Dermatological Exam Skin Temp - Right: Within Normal Limits Skin Texture - Right: Within Normal Limits Skin Elasticity - Right: Within Normal Limits Skin Tugor - Right: Within Normal Limits Hair Growth - Right: Within Normal Limits Pigmentation - Right: Within Normal Limits Skin Temp - Left: Within Normal Limits Skin Texture - Left: Within Normal Limits Skin Elasticity - Left: Within Normal Limits Skin Tugor - Left: Within Normal Limits Hair Growth - Left: Within Normal Limits Pigmentation - Left: Within Normal Limits Ulcers: Location/Measurements Wound dorsal aspect of the left foot has granulating edges. No purulence or cellulitis seen. No odor present. Vascular/Lymphatic Exam R Dorsails Pedis: Palpable L Dorsails Pedis: Palpable R Posterior Tibial: Palpable L Posterior Tibial: Palpable Neurologic Exam Details No neurological deficits seen Muscle Strength Dorsiflexion (Right): Normal Plantarflexion (Right): Normal Inversion (Right): Normal Eversion (Right): Normal Digital (Right): Normal Dorsiflexion (Left): Normal Plantarflexion (Left): Normal Inversion (Left): Normal Eversion (Left): Normal Digital (Left): Normal Foot Range of Motion Dorsiflexion (Right): Normal Plantarflexion (Right): Normal Inversion (Right): Normal Eversion (Right): Normal Digital (Right): Normal Dorsiflexion (Left): Normal Plantarflexion (Left): Normal Inversion (Left): Normal Eversion (Left): Normal Digital (Left): Normal Assessment & Plan Diagnosis: (1) Cellulitis Status: Acute (2) Abscess of foot without toes, left Status: Resolved A/P PLAN: Await interop culture and sensitivity. I changed the dressing to the left foot and pack the wound with Maxorb extra AG. Once final culture is back patient can be discharged with home health. Case management orders written. Patient can follow-up in the wound Center after discharge. Continue to follow. Problem Qualifiers (1) Cellulitis: Qualified Code: L03.116 - Cellulitis of left lower extremity Britton Mondragon DPM Jan 10, 2017 10:02
--- NOTE | 2017-01-10 13:12 | HHI.FF ---
Face to Face Verification Diagnosis: (1) Abscess of foot without toes, left Home Health Nursing Order: Signs/symptoms of disease process Wound care and dressing changes I have seen patient Zay Terrell on 01/10/17. My clinical findings support the need for the requested home health care services because: Ltd mobility - disease progression I certify that my clinical findings support that this patient is homebound because: Unsteady gait/balance Josef Mcginnis MD Jan 10, 2017 13:12
--- NOTE | 2017-01-10 13:13 | HHI.DCPOC ---
Discharge Care Plan Diagnosis: (1) Abscess of foot without toes, left Your Health Problems Are: Inflammation Swelling Goals to Promote Your Health * To prevent worsening of your condition and complications * To maintain your health at the optimal level Directions to Meet Your Goals Take your medications as prescribed Follow your dietary instruction Follow activity as directed Keep your appointments as scheduled Take your immunizations and boosters as scheduled If your symptoms worsen call your PCP, if no PCP go to Urgent Care Center or Emergency Room Smoking is Dangerous to Your Health. Avoid second hand smoke Call the 24-hour hour crisis hotline for domestic abuse at Josef Mcginnis MD Jan 10, 2017 13:13
[2017-01-10] MEDS: DONEPEZIL HCL 5 MG TAB PO SCH (20:46)
[2017-01-10] MEDS: REMOVE OLD NICODERM (NICOTINE) PATCH T-DERMAL SCH (21:00)
[2017-01-11] VITALS (7 sets, daily range): BP systolic 119–161; BP diastolic 73–97; PULSE 60–78; RESP 18–20; TEMP 96.8–98.1; O2SAT 97–99
[2017-01-11] MEDS: ALPRAZolam 1 MG TAB PO PRN ×3 (00:07→13:01)
[2017-01-11] MEDS: HYDROmorphone HCL PF 1 MG/ML VIAL IV PRN ×6 (00:38→14:36)
[2017-01-11] MEDS: PIPERACIL-TAZO 4.5 GM PREMIX 100 ML IV SCH ×2 (03:35→08:06)
[2017-01-11] MEDS: HYDROmorphone HCL 2 MG TAB PO PRN ×3 (05:22→13:01)
[2017-01-11] MEDS: MEMANTINE HCL 10 MG TAB PO SCH (08:05)
[2017-01-11] MEDS: SODIUM CHLORIDE 0.9% FLUSH 10 ML FLUSH IV FLUSH SCH ×2 (08:06)
[2017-01-11] MEDS: NICOTINE 21 MG/24 HR PATCH T-DERMAL SCH (08:06)
[2017-01-11] MEDS ORDERED: PHARMACY ORDERED LAB ONE (11:45)
[2017-01-11] MEDS: VANCOMYCIN INJ 1,750 MG in SODIUM CHLORID 0.9% 500 ML INJ 500 ML IV SCH (11:54)
--- NOTE | 2017-01-11 11:56 | HHI.PR ---
Subjective Remarks in no acute distress. pain is fairly controlled. no fever. d/w the RN. Objective Vitals Vital Signs Date Time Temp Pulse Resp B/P Pulse Ox O2 Delivery O2 Flow Rate FiO2 01/11/17 08:08 97.8 65 20 161/92 99 01/11/17 08:00 60 01/11/17 06:26 96.8 62 20 140/88 97 01/11/17 01:02 142/90 01/11/17 00:35 96.8 60 20 161/97 99 01/10/17 21:47 97.7 65 20 156/93 98 01/10/17 20:00 60 01/10/17 16:00 97.5 69 18 139/88 96 I/O 01/10/17 01/10/17 01/10/17 01/11/17 01/11/17 01/11/17 07:00 15:00 23:00 07:00 15:00 23:00 Output Total 1300 ml Balance -1300 ml Output Urine Total 1300 ml # Voids 1 # Bowel Movements 1 Result Diagram: 01/08/17 0914 01/11/17 0845 Imaging Last Impressions Foot X-Ray 01/07/17 0000 Signed Impressions: Service Date/Time: December 05:59 - CONCLUSION: Unremarkable study. KJasiel Parmar MD Chest X-Ray 01/07/17 0000 Signed Impressions: Service Date/Time: December 12:54 - CONCLUSION: 1. No acute cardiopulmonary findings. Steve Connors MD Objective Remarks GENERAL: This is a well-nourished, well-developed patient, in no apparent distress. CARDIOVASCULAR: Regular rate and regular rhythm without murmurs, gallops, or rubs. RESPIRATORY: Clear to auscultation. Breath sounds equal bilaterally. No wheezes , rales, or rhonchi. GASTROINTESTINAL: Abdomen soft, non-tender, nondistended. Normal, active bowel sounds MUSCULOSKELETAL: left foot covered with clean dressing. NEURO: Alert & Oriented x4 to person, place, time, situation. Moves all ext x4 Procedures I/D of the left foot abscess. Medications and IVs Current Medications Vancomycin HCl 1500 mg/Sodium Chloride 515 ml @ 257.5 mls/ hr ONCE ONCE IV Last administered on 01/07/17 06:37; Start 01/07/17 at 06:00; Stop 01/07/17 at 07:59; Status DC Sodium Chloride (NS 1000 ml Inj) 1,000 ml @ 999 mls/hr BOLUS ONCE IV Last administered on 01/07/17 06:50; Start 01/07/17 at 06:45; Stop 01/07/17 at 07:45 ; Status DC Sodium Chloride (NS Flush) 2 ml UNSCH PRN IV FLUSH FLUSH AFTER USING IV ACCESS Last administered on 01/08/17 06:20; Start 01/07/17 at 07:00 Sodium Chloride (NS Flush) 2 ml BID IV FLUSH Last administered on 01/11/17 08: 06; Start 01/07/17 at 09:00 Naloxone HCl 0.4 mg 0.4 mg UNSCH PRN IV SEE LABEL COMMENTS; Start 01/07/17 at 07:00; Stop 01/08/17 at 10:50; Status DC Pharmacy Profile Note 0 ml @ 0 mls/hr UNSCH OTHER ; Start 01/07/17 at 07:00 Piperacillin Sod/ Tazobactam Sod (Zosyn 4.5 Gm Premix) 100 ml @ 200 mls/hr Q6H IV Last administered on 01/11/17 08:06; Start 01/07/17 at 09:00 Acetaminophen (Tylenol) 650 mg Q4H PRN PO FEVER/PAIN < 5; Start 01/07/17 at 07: 45; Stop 01/08/17 at 08:32; Status DC Acetaminophen/ Hydrocodone Bitart ([place] 5-325 Mg) 1 tab Q4H PRN PO PAIN>5 Last administered on 01/07/17 08:06; Start 01/07/17 at 07:45; Stop 01/07/17 at 14:14; Status DC Alprazolam (Xanax) 1 mg Q6H PRN PO ANXIETY Last administered on 01/11/17 08:05 ; Start 01/07/17 at 07:45 Donepezil HCl (Aricept) 10 mg HS PO Last administered on 01/10/17 20:46; Start 01/07/17 at 21:00 Memantine 10 mg 10 mg BID PO Last administered on 01/11/17 08:05; Start at 09:00 Vancomycin HCl/ Sodium Chloride (Vancomycin Inj/ NS 250 ml Inj) 262.5 ml @ 250 mls/hr Q18H IV Last administered on 01/09/17 12:06; Start 01/08/17 at 00:00; Stop 01/09/17 at 13:48; Status DC Miscellaneous Information SPECIFIC LAB TO BE DRAWN:VANCOMYCIN TROUGH DATE TO... ONCE ONCE .XX Last administered on 01/09/17 11:45; Start 01/09/17 at 11:45; Stop 01/09/17 at 11:46; Status DC Ketorolac Tromethamine (Toradol Inj) 15 mg Q8HR PRN IV PUSH BREAKTHROUGH PAIN Last administered on 01/08/17 06:19; Start 01/07/17 at 11:15; Stop 01/08/17 at 08:32; Status DC Acetaminophen/ Hydrocodone Bitart ([place] 5-325 Mg) 2 tab Q4H PRN PO PAIN>5 Last administered on 01/08/17 07:56; Start 01/07/17 at 14:15; Stop 01/08/17 at 08:32; Status DC Nicotine (Habitrol 21 Mg Patch.24 Hr) 1 patch DAILY T-DERMAL Last administered on 01/11/17 08:06; Start 01/07/17 at 16:00 Miscellaneous Information 1 1 HS T-DERMAL Last administered on 01/10/17 21:00 ; Start 01/07/17 at 21:00 Lactated Ringer's (Lr 1000 ml Inj) 1,000 ml @ 30 mls/hr Q24H PRN IV SEE LABEL COMMENTS; Start 01/08/17 at 05:45; Stop 01/11/17 at 05:44; Status DC Povidone Iodine (Betadine 5% Antisepsis Kit) 1 applic SHOE MAKER PRN EACH NARE SEE LABEL COMMENTS; Start 01/08/17 at 05:45; Stop 01/11/17 at 05:44; Status DC Chlorhexidine Gluconate (Chlorhexidine 2% Cloth) 3 pack SHOE MAKER PRN TOPICAL SEE LABEL COMMENTS; Start 01/08/17 at 05:45; Stop 01/11/17 at 05:44; Status DC Insulin Human Regular (NovoLIN R INJ) See Protocol Table ... SHOE MAKER PRN SQ SEE PROTOCOL TABLE; Start 01/08/17 at 05:45; Stop 01/11/17 at 05:44; Status DC Acetaminophen/ Hydrocodone Bitart ([place] 10-325 Mg) 1 tab Q4H PRN PO PAIN <5; Start 01/08/17 at 09:00; Stop 01/08/17 at 10:55; Status DC Acetaminophen/ Hydrocodone Bitart ([place] 10-325 Mg) 2 tab Q4H PRN PO PAIN >5 Last administered on 01/08/17 23:34; Start 01/08/17 at 09:00; Stop 01/09/17 at 14:19; Status DC Hydromorphone HCl (Dilaudid Pf Inj) 0.5 mg Q3HR PRN IV PUSH BREAKTHROUGH PAIN Last administered on 01/08/17 09:10; Start 01/08/17 at 09:00; Stop 01/08/17 at 10:56; Status DC Bupivacaine HCl (Marcaine Pf 0.5% Inj) 30 ml STK-MED ONCE .ROUTE Last administered on 01/08/17 10:20; Start 01/08/17 at 09:17; Stop 01/08/17 at 09:18 ; Status DC Acetaminophen (Ofirmev Inj) 1,000 mg STK-MED ONCE IV ; Start 01/08/17 at 09:46; Stop 01/08/17 at 09:47; Status DC Midazolam HCl (Versed Inj) 5 mg STK-MED ONCE .ROUTE ; Start 01/08/17 at 09:47; Stop 01/08/17 at 09:48; Status DC Ketamine HCl (Ketalar Inj) 500 mg STK-MED ONCE .ROUTE ; Start 01/08/17 at 09:47 ; Stop 01/08/17 at 09:48; Status DC Hydromorphone HCl (Dilaudid Pf Inj) 2 mg STK-MED ONCE .ROUTE ; Start 01/08/17 at 09:47; Stop 01/08/17 at 09:48; Status DC Dexamethasone Sodium Phosphate (Decadron Inj) 4 mg STK-MED ONCE .ROUTE ; Start 01/08/17 at 09:47; Stop 01/08/17 at 09:48; Status DC Hydromorphone HCl (Dilaudid Pf Inj) 2 mg STK-MED ONCE .ROUTE ; Start 01/08/17 at 09:57; Stop 01/08/17 at 09:58; Status DC Sodium Chloride (NS Flush) 2 ml UNSCH PRN IV FLUSH FLUSH AFTER USING IV ACCESS ; Start 01/08/17 at 10:45 Sodium Chloride (NS Flush) 2 ml BID IV FLUSH Last administered on 01/10/17 20: 48; Start 01/08/17 at 21:00 Miscellaneous Information (Post-op Orders (for Pharmacy)) STAT ONCE XX ; Start 01/08/17 at 10:45; Stop 01/08/17 at 13:45; Status DC Hydromorphone HCl (Dilaudid Pf Inj) 1 mg Q3H PRN IV Pain 6-10;if unable to take PO Last administered on 01/11/17 09:07; Start 01/08/17 at 11:00 Acetaminophen (Ofirmev Inj) 1,000 mg Q6H IV Last administered on 01/09/17 05: 14; Start 01/08/17 at 11:00; Stop 01/09/17 at 05:01; Status DC Hydromorphone HCl (Dilaudid Pf Inj) 1 mg Q3H PRN IV BREAKTHROUGH PAIN Last administered on 01/09/17 08:19; Start 01/08/17 at 11:00 Hydromorphone HCl (Dilaudid) 1 mg Q4H PRN PO SEE LABEL COMMENTS Last administered on 01/09/17 07:28; Start 01/08/17 at 11:00; Stop 01/09/17 at 14:16 ; Status DC Naloxone HCl (Narcan Inj) 0.4 mg UNSCH PRN IV SEE LABEL COMMENTS; Start at 10:45 Midazolam HCl (Versed Inj) 2 mg STK-MED ONCE .ROUTE ; Start 01/08/17 at 10:50; Stop 01/08/17 at 10:51; Status DC Fentanyl Citrate (fentaNYL INJ) 500 mcg STK-MED ONCE .ROUTE ; Start 01/08/17 at 10:50; Stop 01/08/17 at 10:51; Status DC Hydromorphone HCl (*DILAUDID PF INJ PERIprocedural ONLY) 1 mg STK-MED ONCE .ROUTE Last administered on 01/08/17 11:02; Start 01/08/17 at 11:00; Stop at 11:01; Status DC Miscellaneous Information ALL NURSING DEPARTME... UNSCH PRN .XX SEE LABEL COMMENTS; Start 01/08/17 at 10:44; Stop 01/09/17 at 10:43; Status DC Hydromorphone HCl (Dilaudid Pf Inj) 0.5 mg ONCE ONCE IV ; Start 01/08/17 at 12: 00; Stop 01/08/17 at 13:45; Status DC Diphenhydramine HCl (Benadryl) 50 mg ONCE ONCE PO Last administered on 01:38; Start 01/08/17 at 23:15; Stop 01/08/17 at 23:16; Status DC Temazepam 7.5 mg 7.5 mg HS PRN PO INSOMNIA Last administered on 01/09/17 22:33 ; Start 01/09/17 at 09:00 Vancomycin HCl/ Sodium Chloride (Vancomycin Inj/ NS 500 ml Inj) 517.5 ml @ 250 mls/hr Q12H IV Last administered on 01/10/17 23:52; Start 01/10/17 at 00:00 Miscellaneous Information SPECIFIC LAB TO BE DRAWN:VANCO TROUGH DATE TO... ONCE ONCE .XX ; Start 01/11/17 at 11:45; Stop 01/11/17 at 11:46; Status DC Hydromorphone HCl (Dilaudid) 2 mg Q4H PRN PO PAIN 6-10 Last administered on 08:05; Start 01/09/17 at 15:00 A/P Assessment and Plan A/P - sepsis due to cellulitis/abscess of the left foot- failed outpatient treatment s/p I/D of the left foot abscess. continue with broad-spectrum IV antibiotics- follow the cultures- continue with pain control . podiatry following. -history of PTSD and TBI- resumed home meds -insomnia; restoril as needed. Discharge Planning dc home likely tomorrow when the wound culture is resulted. d/w the RN and microbiology today. Josef Mcginnis MD Jan 11, 2017 11:56
[2017-01-11] MEDS ORDERED: CLIN1CAP6 PO (13:30)
--- NOTE | 2017-01-11 13:33 | HHI.DS ---
Discharge Summary Admission Date Jan 09, 2017 at 09:52 Discharge Date: Jan 11, 2017 Admitting Diagnosis L Foot Cellulitis (Resistant to oupt [place]) (1) Cellulitis ICD Code: L03.90 Procedures I/D of the left foot abscess. Brief History - From Admission patient is a 46 y/o male with history of TBI and PTSD who presented to ER with left foot infection. he says that it started about ten days ago and gradually got worse. he denies any fever or chills but complaining of moderate pain to the left foot. he says that he took clindamycin for about ten days without significant improvement. he says that he noticed considerable amount of fluid discharge from the infected site last night. CBC/BMP: 01/08/17 0914 01/11/17 0845 Significant Findings Laboratory Tests Test 01/09/17 01/11/17 11:45 11:45 Vancomycin Level Trough 4.0 MCG/ML 19.8 MCG/ML (5.0-10.0) (5.0-10.0) Imaging Last Impressions Foot X-Ray 01/07/17 0000 Signed Impressions: Service Date/Time: December 05:59 - CONCLUSION: Unremarkable study. Ken Parmar MD Chest X-Ray 01/07/17 0000 Signed Impressions: Service Date/Time: December 12:54 - CONCLUSION: 1. No acute cardiopulmonary findings. Steve Connors MD PE at Discharge GENERAL: This is a well-nourished, well-developed patient, in no apparent distress. CARDIOVASCULAR: Regular rate and regular rhythm without murmurs, gallops, or rubs. RESPIRATORY: Clear to auscultation. Breath sounds equal bilaterally. No wheezes , rales, or rhonchi. GASTROINTESTINAL: Abdomen soft, non-tender, nondistended. Normal, active bowel sounds MUSCULOSKELETAL: left foot covered with clean dressing. NEURO: Alert & Oriented x4 to person, place, time, situation. Moves all ext x4 Hospital Course - sepsis due to cellulitis/abscess of the left foot- failed outpatient treatment s/p I/D of the left foot abscess- wound culture with strep. will switch to po clindamycin upon discharge- - continue with pain control . podiatry evaluation appreciated. -history of PTSD and TBI- resumed home meds -insomnia; restoril as needed. Pt Condition on Discharge: Stable Discharge Disposition: Disch w/ Home Health Serv Discharge Time: <= 30 minutes Discharge Instructions DIET: Follow Instructions for: Heart Healthy Diet Activities you can perform: Regular-No Restrictions Follow up Referrals: PCP Follow-up Podiatry New Medications: Clindamycin (Clindamycin) 300 Mg Cap 300 MG PO Q6H Infection Days 7 Ref 0 CAP Hydrocodone-Acetaminophen (Hydrocodone-Acetaminophen) 10-325 mg Tab 1 TAB PO Q6HR PRN pain #12 Ref 0 TAB Continued Medications: Alprazolam (Xanax) 1 Mg Tab 1 MG PO Q6H PRN ANXIETY Ref 0 TAB Donepezil (Aricept) 23 Mg Tab 10 MG PO HS Do not split, crushed or chewed. TAB Memantine (Namenda) 10 Mg Tab 10 MG PO BID Alzheimer Disease #30 Ref 0 TAB Josef Mcginnis MD Jan 11, 2017 13:33
[2017-01-12] MEDS ORDERED: VANCOMYCIN INJ 1,250 MG in SODIUM CHLOR 0.9% 250 ML INJ 250 ML IV SCH (05:00)
[2017-01-13] MEDS ORDERED: PHARMACY ORDERED LAB ONE (04:45)
== END 2017-01-11 17:21 | disposition home health service (06) | DRG 872 ==
LOC: NEPC 05:23 → INTOOBSV 06:54 → NEDA 06:54 → N05A 13:00 → OBSVTOIN 01-09 09:52
PROVIDERS: ADMIT Internal Medicine; ATTEND Internal Medicine
PROC: 0Y9 Anatomical Regions, Lower Extremities, Drainage (ICD-10-PCS; principal; 2017-01-09)
DX: A41.9 Sepsis, unspecified organism (principal); L03.116 Cellulitis of left lower limb; L02.612 Cutaneous abscess of left foot; E86.0 Dehydration; F43.10 Post-traumatic stress disorder, unspecified; F17.210 Nicotine dependence, cigarettes, uncomplicated; Z86.73 Personal history of transient ischemic attack (TIA), and cerebral infarction without residual deficits; Z87.442 Personal history of urinary calculi
CPT/HCPCS: 71020; 73620; 76937; 80048; 80202; 82565; 85025; 85610; 86403; 87070; 87102; 87205; 87206; 93005; 96365; J0131; J1100; J1170; J1885; J2250; J2405; J2543; J3010; J3370; J7030; J7040; J7050; L3260; Q0163

== ENCOUNTER 2017-01-15 19:56 | Emergency (ER) | payer MEDICARE, OTHER ==
[~2017-01-15] VITALS: Ht 180.3 cm; Wt 80.0 kg
[~2017-01-15 19:56] MED LIST changes: +CLIN1CAP6 PO; +HYDR-3583 PO
[2017-01-15 19:59] VITALS: BP 127/74; PULSE 94; RESP 16; TEMP 98.8; O2SAT 98
== END 2017-01-16 00:05 | disposition left against medical advice (07) ==
LOC: NED 19:56
DX: M79.672 Pain in left foot (principal); Z98.890 Other specified postprocedural states; Z53.21 Procedure and treatment not carried out due to patient leaving prior to being seen by health care provider

== ENCOUNTER 2017-01-16 09:54 | Emergency (ER) | payer OTHER ==
[~2017-01-16] VITALS: Ht 180.3 cm; Wt 78.0 kg
[2017-01-16 09:55] VITALS: BP 131/85; PULSE 82; RESP 18; TEMP 98.8; O2SAT 97
--- NOTE | 2017-01-16 10:20 | PD ---
HPI Chief Complaint: Medication Refill Request Time Seen by Provider: 10:20 Travel History International Travel<30 days: No Contact w/Intl Traveler<30days: No Traveled to known affect area: No History of Present Illness HPI 46-year-old male presents to the emergency department requesting a refill on his pain medications for an abscess to his left foot that was previously been incised and drained. He was admitted on January 09 for IV antibiotics after outpatient treatment failure with clindamycin. He denies fever but reports vomiting. Since he last vomited this morning. Says the last time his dressing was changed was on Wednesday. He says someone is supposed to be coming to his house to change his dressing and they have not and he has not changed himself. He reports that he has also not showered since Wednesday because he was told not to. Reports paresthesias but has history of neuropathy and paresthesias are unchanged. Denies loss of sensation. Dressing is in place and he has a postop shoe. Patient is ambulatory on the affected extremity. He has been taking his antibiotics as prescribed. After he ran out of his pain medications he has been taking Tylenol for symptom management. Allergies to Restoril and Vistaril. Has no other medical complaints. No other modifying factors or associated signs and symptoms. PFSH Past Medical History Hx Anticoagulant Therapy: Yes (ASA) Arthritis: Yes Anxiety: Yes Depression: Yes Cancer: No Cardiovascular Problems: No Cerebrovascular Accident: Yes (TIA) Diabetes: No Diminished Hearing: No Endocrine: No Gastrointestinal Disorders: No Genitourinary: No Headaches: No Immune Disorder: No Implanted Vascular Access Dvce: No Kidney Stones: Yes Musculoskeletal: Yes Neurologic: Yes (nerve impingment 2011) Psychiatric: Yes (PTSD) Reproductive: No Respiratory: No Immunizations Current: Yes Migraines: No Seizures: No Past Surgical History Abdominal Surgery: Yes (Pain pump insertion and removal) Cardiac Surgery: No Ear Surgery: No Endocrine Surgery: No Eye Surgery: No Genitourinary Surgery: No Gynecologic Surgery: No Neurologic Surgery: Yes (2012 spine surgery) Oral Surgery: No Thoracic Surgery: No Other Surgery: Yes (11 bilat knee sx, spine sx 2011, pain pump insertion 2011, pain pump remove) Social History Alcohol Use: No Tobacco Use: Yes (/2 PPD) Substance Use: No Allergies-Medications (Allergen,Severity, Reaction): Coded Allergies: Restoril (Verified Allergy, Severe, 01/16/17) Vistaril (Verified Allergy, Intermediate, AGITATION, 01/15/17) Reported Meds & Prescriptions Reported Meds & Active Scripts Active Hydrocodone-Acetaminophen 10-325 mg Tab 1 Tab PO Q6HR PRN Reported Xanax (Alprazolam) 1 Mg Tab 1 Mg PO Q6H PRN Namenda (Memantine) 10 Mg Tab 10 Mg PO BID Aricept (Donepezil) 23 Mg Tab 10 Mg PO HS Do not split, crushed or chewed. Review of Systems Except as stated in HPI: all other systems reviewed are Neg Physical Exam Narrative GENERAL: Well-nourished, well-developed [-] patient, in no acute distress; afebrile, nontoxic-appearing SKIN: There is an open wound to the dorsal aspect of the left foot which measures about 1-1/2 cm in diameter; no drainage noted. There is minimal surrounding erythema and the areas without warmth to touch. The foot is without edema, erythema. Left lower [place] is supple and non-tense with 2+ pedal pulse and sensory intact. HEAD: Atraumatic. Normocephalic. EYES: Pupils equal and round. No scleral icterus. No injection or drainage. ENT: Mucosa pink and moist. Airway patent. NECK: Trachea midline. CARDIOVASCULAR: Regular rate. RESPIRATORY: No accessory muscle use. GASTROINTESTINAL: Flat. MUSCULOSKELETAL: No obvious deformities. No clubbing. No cyanosis. No edema. NEUROLOGICAL: Awake and alert. Oriented 3. No obvious cranial nerve deficits. Motor grossly within normal limits. Normal speech. PSYCHIATRIC: Appropriate mood and affect; insight and judgment normal. Data Data Last Documented VS Vital Signs Date Time Temp Pulse Resp B/P Pulse Ox O2 Delivery O2 Flow Rate FiO2 01/16/17 09:55 98.8 82 18 131/85 97 Orders Foot, Complete ([id number]) (01/16/17 10:18) Wound Care (01/16/17 10:53) Ketorolac Inj (Toradol Inj) (01/16/17 11:15) MDM Medical Decision Making Medical Screen Exam Complete: Yes Emergency Medical Condition: Yes Medical Record Reviewed: Yes Differential Diagnosis Wound infection, wound recheck, narcotic seeking, pain management, osteomyelitis Narrative Course 46-year-old male presents for pain medication refill for an abscess to the dorsal aspect of his left foot. He was admitted on January 09 for IV antibiotics and he has been taking his antibiotics as prescribed. Patient is afebrile and nontoxic-appearing. He denies fever but reports vomiting, last this morning. I will x-ray the left foot to rule out osteomyelitis. Left foot x-ray ordered. 1051: Left foot x-ray with no acute findings. Patient instructed to take over- the-counter medications as directed and as needed for pain and inflammation. Patient given an injection of Toradol prior to discharge. Patient instructed on acute wound care and discharged instructions provided. Instructed patient to continue antibiotics as prescribed. Patient verbalizes understanding and agreement with treatment plan. Patient is medically cleared and stable for discharge. Discussed reasons to return to the emergency department. Instructed patient to follow up with primary care provider. Patient agrees with treatment plan. The patients vital signs are stable and the patient is stable for outpatient follow-up and treatment. Patient discharged home, stable and in no acute distress. Diagnosis Primary Impression: Encounter for wound re-check Referrals: [facility] Primary Care Physician Patient Instructions: Abscess (ED), Acute Wound Care (ED), General Instructions Additional Instructions: Refer to acute wound care instructions and discharge instructions Complete full course of antibiotics Warm compresses to the affected area Keep area clean and dry; apply cover bandage and change once or twice daily and as needed Ibuprofen or Tylenol as directed and as needed for pain and inflammation Follow-up with primary care provider within 3 days Return to emergency department immediately with worsening of symptoms Med/Other Pt SpecificInfo: No Change to Meds, No Meds Exist/No RX given Disposition: 01 DISCHARGE HOME Condition: Stable Kayley Husain Jan 16, 2017 10:20
--- NOTE | 2017-01-16 10:44 | RADRPT ---
EXAM DATE/TIME: 01/16/2017 10:29 [facility] COMPARISON: No previous studies available for comparison. INDICATIONS : Pain from wound on dorsal surface of foot post surgery for abcess. MEDICAL HISTORY : Prior fractures, unspecified. SURGICAL HISTORY : Abcess debridement. ENCOUNTER: Initial ACUITY: 2 weeks PAIN SCORE: 4/10 LOCATION: Left foot. FINDINGS: Three view examination of the left foot demonstrates no soft tissue swelling, dislocation, or fractur e. The tarsal bones appear intact. The interphalangeal and metatarsophalangeal joints are intact. The calcaneus is intact. Bony mineralization is normal. CONCLUSION: Unremarkable examination. Akira Navarrete MD on January 16, 2017 at 10:42 Board Certified Radiologist. This report was verified electronically.
[2017-01-16] MEDS ORDERED: KETOROLAC TROMETHAMINE 60 MG/2 ML (IM) VIAL IM ONE (11:15)
== END 2017-01-16 11:35 | disposition home or self-care (01) ==
LOC: NEPD 09:54
DX: Z51.89 Encounter for other specified aftercare (principal); L02.612 Cutaneous abscess of left foot; F43.10 Post-traumatic stress disorder, unspecified; F41.9 Anxiety disorder, unspecified; F32.9 Major depressive disorder, single episode, unspecified; F17.200 Nicotine dependence, unspecified, uncomplicated; Z86.73 Personal history of transient ischemic attack (TIA), and cerebral infarction without residual deficits; Z79.899 Other long term (current) drug therapy
CPT/HCPCS: 73630; 99283

== ENCOUNTER 2017-02-10 06:05 | Emergency (ER) | payer OTHER ==
[~2017-02-10 06:05] MED LIST changes: -CLIN1CAP6 PO; -HYDR-3583 PO
[2017-02-10 06:07] VITALS: BP 130/91; PULSE 87; RESP 18; TEMP 98.2; O2SAT 98
[2017-02-10] MEDS ORDERED: SODIUM CHLOR 0.9% 1000 ML INJ 1,000 ML IV SCH (07:08)
--- NOTE | 2017-02-10 07:13 | PD ---
HPI Chief Complaint: Flank/Kidney Pain Time Seen by Provider: 07:03 Travel History International Travel<30 days: No Contact w/Intl Traveler<30days: No Traveled to known affect area: No History of Present Illness HPI 46-year-old male complains of right flank pain. Patient states that the pain started yesterday. Patient states that he has history kidney stone. Patient states the pain is sharp stabbing pain localized to right flank area. Patient denies any pain radiation. Patient complains of nausea vomiting with the pain. Patient denies any fever chills. Patient states that he has intermittent dysuria. Patient denies any hematuria. Patient denies any recent injury. On a scale of 1-10 the pain is a 10. PFSH Past Medical History Hx Anticoagulant Therapy: Yes (ASA) Arthritis: Yes Anxiety: Yes Depression: Yes Cancer: No Cardiovascular Problems: No Cerebrovascular Accident: Yes (TIA) Diabetes: No Diminished Hearing: No Endocrine: No Gastrointestinal Disorders: No Genitourinary: No Headaches: No Immune Disorder: No Implanted Vascular Access Dvce: No Kidney Stones: Yes Musculoskeletal: Yes Neurologic: Yes (nerve impingment 2011) Psychiatric: Yes (PTSD) Reproductive: No Respiratory: No Immunizations Current: Yes Migraines: No Seizures: No Past Surgical History Abdominal Surgery: Yes (Pain pump insertion and removal) Cardiac Surgery: No Ear Surgery: No Endocrine Surgery: No Eye Surgery: No Genitourinary Surgery: No Gynecologic Surgery: No Neurologic Surgery: Yes (2012 spine surgery) Oral Surgery: No Thoracic Surgery: No Other Surgery: Yes (11 bilat knee sx, spine sx 2011, pain pump insertion 2011, pain pump remove) Social History Alcohol Use: No Tobacco Use: Yes (07/27 PPD) Substance Use: No Allergies-Medications (Allergen,Severity, Reaction): Coded Allergies: Morphine (Verified Allergy, Severe, 02/10/17) Restoril (Verified Allergy, Severe, 02/10/17) Vistaril (Verified Allergy, Intermediate, AGITATION, 02/10/17) Reported Meds & Prescriptions Reported Meds & Active Scripts Active Reported Xanax (Alprazolam) 1 Mg Tab 1 Mg PO Q6H PRN Namenda (Memantine) 10 Mg Tab 10 Mg PO BID Aricept (Donepezil) 23 Mg Tab 10 Mg PO HS Do not split, crushed or chewed. Review of Systems General / Constitutional: No: Fever Eyes: No: Visual changes HENT: No: Headaches Cardiovascular: No: Chest Pain or Discomfort Respiratory: No: Shortness of Breath Gastrointestinal: No: Abdominal Pain Genitourinary: No: Dysuria Musculoskeletal: No: Pain Skin: No Rash Neurologic: No: Weakness Psychiatric: No: Depression Endocrine: No: Polydipsia Hematologic/Lymphatic: No: Easy Bruising Physical Exam Narrative GENERAL: Well-nourished, well-developed patient. SKIN: Focused skin assessment warm/dry. HEAD: Normocephalic. EYES: No scleral icterus. No injection or drainage. NECK: Supple, trachea midline. No JVD or lymphadenopathy. CARDIOVASCULAR: Regular rate and rhythm without murmurs, gallops, or rubs. RESPIRATORY: Breath sounds equal bilaterally. No accessory muscle use. GASTROINTESTINAL: Abdomen soft, non-tender, nondistended. MUSCULOSKELETAL: No cyanosis, or edema. BACK: Moderate tenderness on palpation right flank area, without obvious deformity. No CVA tenderness. Neurologic exam normal. Data Data Last Documented VS Vital Signs Date Time Temp Pulse Resp B/P Pulse Ox O2 Delivery O2 Flow Rate FiO2 02/10/17 07:25 99 Room Air 02/10/17 06:07 98.2 87 18 130/91 Orders Complete Blood Count With Diff (02/10/17 07:08) Comprehensive Metabolic Panel (02/10/17 07:08) Prothrombin Time / Inr (Pt) (02/10/17 07:08) Act Partial Throm Time (Ptt) (02/10/17 07:08) Urinalysis - C+S If Indicated (02/10/17 07:08) Ct Abd/Pel W/O Iv Contrast (02/10/17 07:08) Iv Access Insert/Monitor (02/10/17 07:08) Ecg Monitoring (02/10/17 07:08) Oximetry (02/10/17 07:08) Ondansetron Inj (Zofran Inj) (02/10/17 07:15) Sodium Chlor 0.9% 1000 Ml Inj (Ns 1000 M (02/10/17 07:08) Ketorolac Inj (Toradol Inj) (02/10/17 07:15) Hydromorphone Pf Inj (Dilaudid Pf Inj) (02/10/17 07:15) Labs Laboratory Tests Test 02/10/17 07:20 White Blood Count 7.6 TH/MM3 Red Blood Count 4.39 MIL/MM3 Hemoglobin 13.6 GM/DL Hematocrit 40.4 % Mean Corpuscular Volume 92.1 FL Mean Corpuscular Hemoglobin 31.0 PG Mean Corpuscular Hemoglobin 33.7 % Concent Red Cell Distribution Width 14.5 % Platelet Count 174 TH/MM3 Mean Platelet Volume 8.4 FL Neutrophils (%) (Auto) 56.6 % Lymphocytes (%) (Auto) 33.4 % Monocytes (%) (Auto) 7.6 % Eosinophils (%) (Auto) 2.0 % Basophils (%) (Auto) 0.4 % Neutrophils # (Auto) 4.3 TH/MM3 Lymphocytes # (Auto) 2.5 TH/MM3 Monocytes # (Auto) 0.6 TH/MM3 Eosinophils # (Auto) 0.2 TH/MM3 Basophils # (Auto) 0.0 TH/MM3 CBC Comment DIFF FINAL Differential Comment Prothrombin Time 10.2 SEC Prothromb Time International 0.9 RATIO Ratio Activated Partial 26.5 SEC Thromboplast Time Urine Color YELLOW Urine Turbidity CLEAR Urine pH 6.0 Urine Specific [place] 1.017 Urine Protein NEG mg/dL Urine Glucose (UA) NEG mg/dL Urine Ketones NEG mg/dL Urine Occult Blood NEG Urine Nitrite NEG Urine Bilirubin NEG Urine Urobilinogen LESS THAN 2.0 MG/DL Urine Leukocyte Esterase NEG Urine RBC LESS THAN 1 /hpf Urine WBC 1 /hpf Urine Mucus FEW /lpf Microscopic Urinalysis Comment CULT NOT INDICATED Sodium Level 138 MEQ/L Potassium Level 4.3 MEQ/L Chloride Level 106 MEQ/L Carbon Dioxide Level 26.1 MEQ/L Anion Gap 6 MEQ/L Blood Urea Nitrogen 23 MG/DL Creatinine 1.16 MG/DL Estimat Glomerular Filtration 68 ML/MIN Rate Random Glucose 98 MG/DL Calcium Level 8.8 MG/DL Total Bilirubin 0.2 MG/DL Aspartate Amino Transf 15 U/L (AST/SGOT) Alanine Aminotransferase 16 U/L (ALT/SGPT) Alkaline Phosphatase 115 U/L Total Protein 6.9 GM/DL Albumin 3.6 GM/DL MDM Medical Decision Making Medical Screen Exam Complete: Yes Emergency Medical Condition: Yes Interpretation(s) Last Impressions Abdomen/Pelvis CT 02/10/17 0708 Signed Impressions: Service Date/Time: Friday, February 10, 2017 08:36 - CONCLUSION: 1. Punctate bilateral calyceal calcified renal calculi without evidence for hydronephrosis or hydroureter. 2. Normal appendix. 3. Colonic diverticulosis without evidence for diverticulitis. 4. Small to moderate amount of stool in the right colon. Juvenal Gastelum MD 9:33 AM. CBC within normal limit. CMP within normal limit. BUN 23. UA is negative. Differential Diagnosis Differential diagnosis including nephrolithiasis, pyelonephritis, musculoskeletal, colitis, cholecystitis, appendicitis. Narrative Course 46-year-old male with right flank pain. History kidney stone. Normal saline solution 1 25 cc an hour. Dilaudid 1 mg IV. Toradol 30 mg IV. Zofran 4 mg IV. Diagnosis Primary Impression: Right flank pain Patient Instructions: General Instructions Additional Instructions: Take medications as needed for pain. Follow-up with personal physician. Return if worse. Med/Other Pt SpecificInfo: Prescription(s) given Scripts Methocarbamol (Robaxin)750 Mg Vjp033 Mg PO QID #40 TAB Prov:Herminio Umana MD 02/10/17 Meloxicam (Mobic)15 Mg Tab15 Mg PO DAILY #20 TAB Prov:Herminio Umana MD 02/10/17 Disposition: 01 DISCHARGE HOME Condition: Stable Herminio Umana MD Feb 10, 2017 07:13
[2017-02-10] MEDS ORDERED: HYDROmorphone HCL PF 1 MG/ML VIAL IVS ONE (07:15)
[2017-02-10] MEDS ORDERED: ONDANSETRON HCL 4 MG/2 ML VIAL IVP ONE (07:15)
[2017-02-10] MEDS ORDERED: KETOROLAC TROMETHAMINE 30 MG/ML (IVP) VIAL IVP ONE (07:15)
[2017-02-10 07:25] VITALS: O2SAT 99
[2017-02-10 07:51] LABS: AUTOMATED NEUTROPHIL # 4.3 TH/MM3 (1.8-7.7); BASOPHIL % 0.4 % (0.0-2.0); EOSINOPHIL # 0.2 TH/MM3 (0-0.4); HEMATOCRIT 40.4 % (39.0-51.0); HEMO FLAGS DIFF FINAL; LYMPH % 33.4 % (9.0-44.0); LYMPHOCYTE # 2.5 TH/MM3 (1.0-4.8); MEAN CELL VOLUME 92.1 FL (80.0-100.0); MEAN CORPUSCULAR HGB CONC 33.7 % (32.0-36.0); MONO % 7.6 % (0.0-8.0); NEUT % 56.6 % (16.0-70.0); PLATELET COUNT 174 TH/MM3 (150-450); RED BLOOD COUNT 4.39 MIL/MM3 (4.50-5.90); RED CELL DISTRIBUTION WIDTH 14.5 % (11.6-17.2); WHITE BLOOD COUNT 7.6 TH/MM3 (4.0-11.0)
[2017-02-10 07:54] LABS: BLOOD, URINE NEG (NEG); COMMENT (UR) CULT NOT INDICATED; CULTURE IF INDICATED CULT NOT INDICATED; GLUCOSE,URINE NEG (NEG); KETONE, URINE NEG (NEG); MUCUS URINE FEW /lpf (OCC); NITRITE,URINE NEG (NEG); URINE COLOR YELLOW (YELLW/STRAW)
[2017-02-10 08:01] LABS: APTT (PATIENT) 26.5 SEC (24.3-30.1); INTERNATIONAL NORMALIZED RATIO 0.9 RATIO; PROTHROMBIN TIME - PATIENT 10.2 SEC (9.8-11.6)
[2017-02-10 08:04] LABS: ALT (GPT) 16 U/L (12-78); ANION GAP 6 MEQ/L (5-15); AST (GOT) 15 U/L (15-37); BICARBONATE 26.1 MEQ/L (21.0-32.0); BLOOD UREA NITROGEN 23 MG/DL (7-18); CHLORIDE 106 MEQ/L (98-107); GLOMERULAR FILTRATION RATE 68 ML/MIN (>89); POTASSIUM 4.3 MEQ/L (3.5-5.1); SODIUM (NA) 138 MEQ/L (136-145)
[2017-02-10 08:07] LABS: ALKALINE PHOSPHATASE 115 U/L (45-117); TOTAL BILIRUBIN ADULT 0.2 MG/DL (0.2-1.0)
--- NOTE | 2017-02-10 09:16 | RADRPT ---
EXAM DATE/TIME: 02/10/2017 08:36 [facility] COMPARISON: CT ABDOMEN & PELVIS W/O CONTRAST, April 24, 2015, 8:39. INDICATIONS : Right flank pain ORAL CONTRAST: No oral contrast ingested. RADIATION DOSE: 7.20 CTDIvol (mGy) MEDICAL HISTORY : Renal calculi. SURGICAL HISTORY : None. ENCOUNTER: Initial ACUITY: 1 day PAIN SCALE: 7/10 LOCATION: Right TECHNIQUE: Volumetric scanning of the abdomen and pelvis was performed. Using automated exposure control and ad justment of the mA and/or kV according to patient size, radiation dose was kept as low as reasonably achievable to obtain optimal diagnostic quality images. DICOM format image data is available electro nically for review and comparison. FINDINGS: LOWER LUNGS: The visualized lower lungs are clear. LIVER: Visualized portions of the liver demonstrate homogeneous density without intrahepatic ductal dilatati on. No gross focal mass. Gallbladder appears unremarkable by CT. SPLEEN: Normal size without lesion. PANCREAS: Within normal limits. KIDNEYS: Kidneys are symmetrical in size without evidence for hydronephrosis or hydroureter. There are bilater al punctate calcified calyceal calculi. ADRENAL GLANDS: Within normal limits. VASCULAR: There is no aortic aneurysm. BOWEL/MESENTERY: Appendix is visualized and normal in appearance with mild to moderate sigmoid diverticulosis without significant inflammatory change to suggest diverticulitis. The small to moderate amount of stool in t he proximal and transverse colon. No evidence for bowel obstruction. No significant free fluid or meng inable fluid collection. ABDOMINAL WALL: Within normal limits. RETROPERITONEUM: There is no lymphadenopathy. BLADDER: No wall thickening or mass. No radiopaque calculi. REPRODUCTIVE: Within normal limits. INGUINAL: There is no lymphadenopathy or hernia. MUSCULOSKELETAL: Within normal limits for patient age. CONCLUSION: 1. Punctate bilateral calyceal calcified renal calculi without evidence for hydronephrosis or hydrou reter. 2. Normal appendix. 3. Colonic diverticulosis without evidence for diverticulitis. 4. Small to moderate amount of stool in the right colon. Juvenal Gastelum MD on February 10, 2017 at 9:05 Board Certified Radiologist. This report was verified electronically.
[2017-02-10 09:35] VITALS: BP 122/84; PULSE 67; RESP 16; O2SAT 99
[2017-02-10] MEDS ORDERED: ROBA750T PO (09:35)
[2017-02-10] MEDS ORDERED: MOBI15TA PO (09:35)
== END 2017-02-10 10:00 | disposition home or self-care (01) ==
LOC: NEPC 06:05
DX: K57.30 Diverticulosis of large intestine without perforation or abscess without bleeding (principal); F43.10 Post-traumatic stress disorder, unspecified; F32.9 Major depressive disorder, single episode, unspecified; M19.90 Unspecified osteoarthritis, unspecified site; F17.200 Nicotine dependence, unspecified, uncomplicated; Z86.73 Personal history of transient ischemic attack (TIA), and cerebral infarction without residual deficits; Z87.442 Personal history of urinary calculi; Z79.899 Other long term (current) drug therapy; Z88.5 Allergy status to narcotic agent
CPT/HCPCS: 74176; 80053; 81001; 85025; 85610; 85730; 96374; 96375; 99285; J1170; J1885; J2405; J7030

== ENCOUNTER 2017-12-15 12:07 | Emergency (ER) | payer SELFPAY ==
[~2017-12-15] VITALS: Ht 177.8 cm; Wt 84.0 kg
[~2017-12-15 12:07] MED LIST changes: +MOBI15TA PO; +ROBA750T PO
[2017-12-15 12:21] VITALS: BP 119/77; PULSE 79; RESP 16; TEMP 99.3; O2SAT 98
[2017-12-15] MEDS ORDERED: LEXA10TA PO (13:15)
[2017-12-15] MEDS ORDERED: CEPH-460 PO (13:18)
[2017-12-15] MEDS ORDERED: BACT800T5 PO (13:18)
--- NOTE | 2017-12-15 13:23 | PD ---
HPI Chief Complaint: Skin Problem Time Seen by Provider: 13:11 Travel History International Travel<30 days: No Contact w/Intl Traveler<30days: No Traveled to known affect area: No History of Present Illness HPI 47-year-old male with history of dementia presents emergency department for evaluation of a lesion to the left wrist that has been present for approximately 2 days. Patient states he believes he was bit by something but is unsure. Patient says the area is painful, especially with palpation and movement of the wrist. Denies fevers. Says he has a history of an abscess previously on his foot. Says this is 1 year ago. Says he has not had any complications since then. He denies history of illicit or IV drug use. He has no other complaints today. Patient requests an incision and drainage of the area. PFSH Past Medical History Hx Anticoagulant Therapy: Yes (ASA) Arthritis: Yes Anxiety: Yes Depression: Yes Cancer: No Cardiovascular Problems: No Cerebrovascular Accident: Yes (TIA) Dementia: Yes (early onset) Diabetes: No Diminished Hearing: No Endocrine: No Gastrointestinal Disorders: No Genitourinary: No Headaches: No Immune Disorder: No Implanted Vascular Access Dvce: No Kidney Stones: Yes Musculoskeletal: Yes Neurologic: Yes (nerve impingment 2011) Psychiatric: Yes (PTSD) Reproductive: No Respiratory: No Immunizations Current: Yes Migraines: No Seizures: No ?: Not Past Surgical History Abdominal Surgery: Yes (Pain pump insertion and removal) Cardiac Surgery: No Ear Surgery: No Endocrine Surgery: No Eye Surgery: No Genitourinary Surgery: No Gynecologic Surgery: No Neurologic Surgery: Yes (2011 spine surgery) Oral Surgery: No Thoracic Surgery: No Other Surgery: Yes (11 bilat knee sx, spine sx 2011, pain pump insertion 2011, pain pump remove) Social History Alcohol Use: No Tobacco Use: Yes (2 PPD) Substance Use: No Allergies-Medications (Allergen,Severity, Reaction): Coded Allergies: morphine (Unverified Allergy, Severe, 12/15/17) temazepam (Unverified Allergy, Severe, PT DENIES, 12/15/17) hydroxyzine (Unverified Allergy, Intermediate, AGITATION, 12/15/17) Reported Meds & Prescriptions Reported Meds & Active Scripts Active Keflex (Cephalexin) 500 Mg Cap 500 Mg PO Q8H 7 Days Bactrim DS (Sulfamethoxazole-Trimethoprim) 800-160 Mg Tab 1 Tab PO BID Reported Lexapro (Escitalopram Oxalate) 10 Mg Tab 10 Mg PO DAILY Xanax (Alprazolam) 1 Mg Tab 1 Mg PO Q6H PRN Namenda (Memantine) 10 Mg Tab 10 Mg PO BID Aricept (Donepezil) 23 Mg Tab 10 Mg PO HS Do not split, crushed or chewed. Review of Systems Except as stated in HPI: all other systems reviewed are Neg Physical Exam Narrative GENERAL: Well-nourished, well-developed patient, anxious SKIN: Focused skin assessment warm/dry. No rashes or lesions. Left wrist volar aspect-1 cm round indurated lesion with surrounding erythema approximately 5 mm. No fluctuance or puncta noted. No evidence of bite or self -inflicted wound. HEAD: Normocephalic. Atraumatic. EYES: No scleral icterus. No injection or drainage. THROAT: Airway is patent. CARDIOVASCULAR: Regular rate and rhythm without murmurs, gallops, or rubs. RESPIRATORY: Breath sounds equal bilaterally. No accessory muscle use. No wheezes, rales, or rhonchi MUSCULOSKELETAL: No cyanosis, or edema. BACK: Nontender without obvious deformity. No CVA tenderness. Data Data Last Documented VS Vital Signs Date Time Temp Pulse Resp B/P (MAP) Pulse Ox O2 Delivery O2 Flow Rate FiO2 12/15/17 12:21 99.3 79 16 119/77 (91) 98 Orders Orders Ceftriaxone Inj (Rocephin Inj) (12/15/17 13:30) Lidocaine Pf 1% Inj (Xylocaine-Mpf 1% In (12/15/17 13:30) MDM Medical Decision Making Medical Screen Exam Complete: Yes Emergency Medical Condition: Yes Differential Diagnosis Left wrist abscess, cellulitis, erysipelas Narrative Course 47-year-old male with history of dementia presents emergency department for evaluation of a lesion to the left wrist that has been present for approximately 2 days. Patient states he believes he was bit by something but is unsure. Patient says the area is painful, especially with palpation and movement of the wrist. Denies fevers. Says he has a history of an abscess previously on his foot. Says this is 1 year ago. Says he has not had any complications since then. He has no other complaints today. Patient requests an incision and drainage of the area. Vital signs are stable. His exam findings consistent with a area of cellulitis with possible developing abscess. I do not believe that patient would benefit from an incision and drainage today. Rocephin 250 mg administered today in the emergency department. Patient will be discharged with Keflex and Bactrim. He is advised to return in approximately 2 days if his symptoms do not improve or worsen. He is strongly advised to follow-up with his primary care physician within 2-3 days. Diagnosis Primary Impression: Cellulitis Qualified Codes: L03.114 - Cellulitis of left upper limb Referrals: Primary Care Physician Additional Instructions: Apply warm compresses to the area 15 minutes at a time about 4 times daily. Take all antibiotics as prescribed. Follow-up with your primary care physician within 2-3 days. If the area has increased swelling, redness, pain in 2 days return to the emergency department for further evaluation. Scripts Cephalexin (Keflex) 500 Mg Cap 500 MG PO Q8H for Infection for 7 Days, #21 CAP 0 Refills Prov: Obi Henley MD 12/15/17 Sulfamethoxazole-Trimethoprim (Bactrim DS) 800-160 Mg Tab 1 TAB PO BID for Infection, #14 TAB 0 Refills Prov: Obi Henley MD 12/15/17 Disposition: 01 DISCHARGE HOME Condition: Stable Nicole Blair December 15, 2017 13:23
[2017-12-15] MEDS ORDERED: LIDOCAINE HCL 1% PF 30 ML VIAL INFIL ONE (13:30)
[2017-12-15] MEDS ORDERED: cefTRIAXone 250 MG VIAL IM ONE (13:30)
== END 2017-12-15 14:12 | disposition home or self-care (01) ==
LOC: PHEFT 12:07
DX: L03.114 Cellulitis of left upper limb (principal); F03.90 Unspecified dementia, unspecified severity, without behavioral disturbance, psychotic disturbance, mood disturbance, and anxiety; F32.9 Major depressive disorder, single episode, unspecified; Z86.73 Personal history of transient ischemic attack (TIA), and cerebral infarction without residual deficits; Z88.5 Allergy status to narcotic agent; Z79.899 Other long term (current) drug therapy
CPT/HCPCS: 96372; 99283; J0696